=== PATIENT | male | born 1950 | race Caucasian/White ===

== ENCOUNTER → 2016-03-19 | Outpatient (CLI) | payer MEDICARE, MEDICAID ==
[2016-03-19 09:46] LABS: BASO % 0.6 % (0.0-1.0); EOS # 0.2 K/mm3 (0.0-0.50); EOS % 2.9 % (0.0-3.0); LARGE UNSTAINED CELL # 0.2 K/mm3 (0.0-0.4); LARGE UNSTAINED CELL % 2.7 % (0.0-4.0); LYMPH # 1.4 K/mm3 (1.5-4.5); LYMPH % 24.5 % (24.0-44.0); MEAN CORPUSCULAR HGB CONC 33.6 g/dl (32.0-36.5); MEAN CORPUSCULAR VOLUME 89.3 fl (80.0-96.0); MONO # 0.5 K/mm3 (0.0-0.8); MONO % 8.3 % (0.0-5.0); NEUTROPHILS # 3.5 K/mm3 (1.8-7.7); RED CELL DISTRIBUTION WIDTH 12.2 % (11.5-14.5); WHITE BLOOD COUNT 5.8 K/mm3 (4.0-10.0)
[2016-03-19 09:58] LABS: ALBUMIN 3.5 GM/DL (3.2-5.2); ALBUMIN/GLOBULIN RATIO 1.35 (1.00-1.93); ALKALINE PHOSPHATASE 70 U/L (45-117); ALT/SGPT 24 U/L (12-78); ANION GAP 6 MEQ/L (8-16); AST/SGOT 15 U/L (15-37); BILIRUBIN,TOTAL 0.6 MG/DL (0.2-1.0); BLOOD UREA NITROGEN 15 MG/DL (7-18); CALCIUM LEVEL 8.5 MG/DL (8.8-10.2); CARBON DIOXIDE LEVEL 30 MEQ/L (21-32); CHLORIDE LEVEL 108 MEQ/L (98-107); CREATININE FOR GFR 0.76 MG/DL (0.70-1.30); GLOMERULAR FILTRATION RATE > 60.0 (>49); GLUCOSE, FASTING 79 MG/DL (80-110); POTASSIUM SERUM 3.8 MEQ/L (3.5-5.1); SODIUM LEVEL 144 MEQ/L (136-145); TOTAL PROTEIN 6.1 GM/DL (6.4-8.2)
[2016-03-19 09:59] LABS: PLATELET COUNT, AUTOMATED 40 k/mm3 (150-450)
[2016-03-19 10:08] LABS: ERYTHROCYTE SEDIMENTATION RATE 2 mm/hr (0-20)
== END ==
LOC: M WUC 08:08
PROVIDERS: ATTEND Physician Assistant
DX: R63.4 Abnormal weight loss (principal)

== ENCOUNTER → 2016-03-26 | Outpatient (CLI) | payer MEDICARE, MEDICAID ==
[~2016-03-26] MED LIST: GASTROGRAFIN SOLUTION 30ML (Q9963) As Ordered ONE; ISOVUE-370 76% 100ML VIAL (Q9967) As Ordered ONE
--- NOTE | 2016-03-26 16:05 | REP ---
Clinical: Weight loss. Technique: AP and lateral soft tissue neck radiographs. Findings: Visualized nasopharyngeal, oral pharyngeal, and upper tracheal airway appears patent and relatively normal. The prevertebral soft tissues are unremarkable. No obvious mass or mass effect is identified. The osseous structures demonstrate moderate/advanced multilevel degenerative changes to the visualized cervical spine including osteophytosis and disc space narrowing primarily involving the C5-6 level. Impression: Degenerative changes of the visualized cervical spine. Otherwise unremarkable soft tissue neck radiographs. Signed by Kobe Padron MD 03/26/2016 03:56 P
--- NOTE | 2016-03-26 20:07 | REP ---
CT CHEST WITH CONTRAST: 03/26/2016. Clinical history: Weight loss. Comparison: 01/31/2010 CT chest. Chest x-ray 05/03/2015. Technique: The patient received bolus of 100 mL of Isovue 370, scanning through the chest with coronal and sagittal reconstructions. Findings. The lungs are well inflated. There is minor dependent atelectatic changes posteriorly in the lower lung zones. On image 89, there is a semi-solid nodule in the lingula anteriorly in the subpleural region. This is present on the previous study and suggests some scarring. No other nodules, infiltrates, effusion or masses. No calcified pleural plaques, pleural-based masses, pneumothorax, pneumomediastinum. The heart is not enlarged. There is no pericardial thickening or effusion. The aorta is without aneurysm or dissection. The main, right and left pulmonary arteries are without filling defects. There is no pathologic sized mediastinal or hilar adenopathy. AP window lymph nodes 7 mm and 9 mm are noted. Precarinal 7 mm node is seen. None of these are pathologic size by CT criteria. The xiang, axillary and supraclavicular region show no pathologic adenopathy. No visible mass in the supraclavicular region. Bone windows show sternum, manubrium, clavicles, AC joints, glenohumeral joints, scapulae, ribs and the spine without fracture or destructive lesion evident. There are some degenerative changes. In the upper abdomen, there is some colonic interposition in the anterior wall of the abdomen and lower chest and the liver, but no hepatic mass, biliary dilatation or ascites in the upper abdomen. Liver and spleen seen only in part. Small hiatal hernia suggested. No other finding. Impression: 1. There is a semi-solid nodule in the lingular subpleural region left anterior chest wall and this is essentially unchanged dating back to 2009 CT. 2. No other significant lung findings, mediastinal or hilar adenopathy, parenchymal lung mass or infiltrate. 3. Aorta without aneurysm and the central pulmonary arteries without filling defects. 4. Bones intact and no chest wall abnormality suggested. Signed by Brandon Lemus MD 03/26/2016 08:08 P
--- NOTE | 2016-03-26 20:20 | REP ---
CT abdomen and pelvis with contrast: 03/26/2016. Clinical history: Weight loss. Comparison: Noncontrast CT 06/13/2010. Technique: Oral Gastrografin mixture 10 ml in 290 ml of flavored water for two doses per our bowel contrast protocol, with a bolus of 100 ml of Isovue 370. Scanning from the abdomen through the pelvis. Precontrast scanning through the abdomen performed. Coronal and sagittal reconstructions were utilized. Bone windows are also reviewed. Findings: Small hiatal hernia suggested. Stomach has small amounts of retained oral contrast. Liver shows no gross hepatomegaly. There is slight eventration of the right diaphragm. No hepatosplenomegaly, focal hepatic or splenic mass, intrahepatic biliary dilatation or ascites. One tiny low density area in the right hepatic lobe inferiorly with CT attenuation numbers equivocal. It is too small to characterize and could be a small cyst or hemangioma. This is not a significant finding. Gallbladder shows no calcified stone or mass. Pancreas shows no mass, ductal dilatation or adjacent inflammatory change. Parapelvic cysts are seen on the left kidney with no extrarenal pelvis, renal stone or mass. No cortical calcification. No definite cortical cyst. The ureters show normal course to the bladder without dilatation. There is no stone. There is abundant stool in the right and transverse colon into the mid left colon in the abdominal portion of that organ. Small bowel loops are contrast and fluid-filled without abnormal dilatation and no air-fluid levels or other signs of obstruction. Adrenal glands were normal. The aorta is without aneurysm or dissection. Lung windows shows no perforation or free air in the abdomen or pelvis on review of all slices. Bone windows show degenerative disc changes lumbar and lower thoracic spine without compression deformity or destructive lesion. There is some hypertrophic facet change, but no spondylolysis or spondylolisthesis. Visualized ribs intact. CT pelvis. The bony pelvis shows degenerative changes of the hips although mild with small rim osteophytes in the acetabular roof. No evidence of AVN or fracture. The iliac wings intact. SI joints and sacral ala were also intact. Iliac bones and the symphysis pubis were unremarkable. Within the deep pelvis, the ureters are not dilated and show no stone or mass. The bladder is only partially filled, but is without mass, wall thickening or stone. Prostate mildly enlarged. Seminal vesicles symmetric. Distal left colon and sigmoid without sign of colitis, diverticulitis, stricture or mass. There is no ventral or inguinal hernia nor pathologic sized inguinal adenopathy. There are no inflammatory changes about the cecum. Small bowel loops in the deep pelvis were unremarkable. Impression: 1. Solid organs in the upper abdomen, small bowel loops and colon, stomach, gallbladder were all grossly unremarkable without acute finding. 2. Parapelvic cysts right kidney without stone, mass, hydronephrosis or other acute finding. 3. No aortic aneurysm or dissection. The bones are without acute finding. Signed by Brandon Lemus MD 03/27/2016 09:26 A
== END ==
LOC: M RAD 15:34
PROVIDERS: ATTEND Physician Assistant
DX: M50.322 Other cervical disc degeneration at C5-C6 level (principal); N28.1 Cyst of kidney, acquired; R91.1 Solitary pulmonary nodule; R63.4 Abnormal weight loss
CPT/HCPCS: 70360; 71260; 74178; Q9963; Q9967

== ENCOUNTER → 2016-04-12 | Outpatient (CLI) | payer MEDICARE, MEDICAID ==
--- NOTE | 2016-04-15 09:43 | SLEEPCENT ---
DATE OF STUDY: 04/12/2016 ORDERING PROVIDER: Berta Hui NP Nocturnal polysomnography was performed for the retitration of pressure therapy in this patient with severe obstructive sleep apnea syndrome. Initially titrated to a pressure of +9. For testing, the patient was fit with a ResMed Quattro full face mask of extra-small size. 9 cm of water pressure were applied to the circuit, and the lights were extinguished. 7 hours and 48 minutes of data were reviewed. There were 346 minutes of sleep identified. Sleep latency was short at 5.5 minutes. Rapid eye movement (REM) latency was mildly prolonged at 133 minutes. Sleep architecture improved later in the study, but fragmentation persisted throughout. Overall sleep efficiency was 76%. The patient's electrocardiogram (EKG) showed a sinus rhythm with an average heart rate of 72 beats per minute. Electroencephalogram (EEG) showed normal waveforms for awake and sleep. Persistence of respiratory events prompted an increase in continuous positive airway pressure (CPAP) pressure; and despite optimal mask fit and minimal air leak, a bilevel device was necessary. Titration continued to an inspiratory pressure of 24 over an expiratory pressure of 19, with which pressure, respiratory events were reasonably well addressed. This was late in the study; and by that time, progression was difficult to assess. Occasional central events emerged, but best sleep was seen on an inspiratory pressure of 24 over expiratory pressure of 19. There was increased limb activity on this study in comparison to prior test. Limb activity was near continuous early in the study but did improve later in the test. Arousals from limb events occurred 11.3 times per hour. IMPRESSION #1: Severe obstructive sleep apnea syndrome (G47.31, G47.33). RECOMMENDATION: Nightly use of bilevel pressure therapy, inspiratory pressure of 24 over expiratory pressure of 19 was sufficient to significantly reduce the frequency of respiratory events. IMPRESSION #2: Periodic limb movement disorder (G47.61). RECOMMENDATION: Nightly use of bilevel pressure therapy, inspiratory 24 over expiratory of 19 should be sufficient to address the patient's respiratory disruption should sleep problems persist, interventions to reduce the frequency of arousal from limb activity may be necessary.
== END ==
LOC: M SLEEP 19:45
PROVIDERS: ATTEND Nurse Practitioner Adult Health
DX: G47.31 Primary central sleep apnea (principal); G47.33 Obstructive sleep apnea (adult) (pediatric); G47.61 Periodic limb movement disorder

== ENCOUNTER → 2016-09-23 | Outpatient (REF) | payer MEDICARE, MEDICAID ==
[2016-09-23 18:13] LABS: ALBUMIN 3.7 GM/DL (3.2-5.2); ALBUMIN/GLOBULIN RATIO 1.23 (1.00-1.93); ALKALINE PHOSPHATASE 81 U/L (45-117); ALT/SGPT 30 U/L (12-78); ANION GAP 5 MEQ/L (8-16); AST/SGOT 17 U/L (15-37); BILIRUBIN,TOTAL 0.4 MG/DL (0.2-1.0); BLOOD UREA NITROGEN 17 MG/DL (7-18); CALCIUM LEVEL 8.8 MG/DL (8.8-10.2); CARBON DIOXIDE LEVEL 29 MEQ/L (21-32); CHLORIDE LEVEL 104 MEQ/L (98-107); CHOLESTEROL LEVEL 135 MG/DL (<200); CREATININE FOR GFR 0.76 MG/DL (0.70-1.30); GLOMERULAR FILTRATION RATE > 60.0 (>49); GLUCOSE, FASTING 86 MG/DL (80-110); POTASSIUM SERUM 4.3 MEQ/L (3.5-5.1); SODIUM LEVEL 138 MEQ/L (136-145); TOTAL PROTEIN 6.7 GM/DL (6.4-8.2); TRIGLYCERIDES LEVEL 114 MG/DL (<150)
[2016-09-23 18:17] LABS: BASO # 0.1 K/mm3 (0.0-0.2); BASO % 0.7 % (0.0-1.0); EOS # 0.4 K/mm3 (0.0-0.50); EOS % 4.2 % (0.0-3.0); LARGE UNSTAINED CELL # 0.3 K/mm3 (0.0-0.4); LARGE UNSTAINED CELL % 3.4 % (0.0-4.0); LYMPH # 2.1 K/mm3 (1.5-4.5); LYMPH % 23.8 % (24.0-44.0); MEAN CORPUSCULAR HEMOGLOBIN 31.5 pg (27.0-33.0); MONO # 0.8 K/mm3 (0.0-0.8); MONO % 8.6 % (0.0-5.0); NEUTROPHILS # 5.2 K/mm3 (1.8-7.7); NEUTROPHILS % 59.3 % (36.0-66.0); PLATELET COUNT, AUTOMATED 113 k/mm3 (150-450); RED CELL DISTRIBUTION WIDTH 12.9 % (11.5-14.5); WHITE BLOOD COUNT 8.7 K/mm3 (4.0-10.0)
[2016-09-23 20:56] LABS: ERYTHROCYTE SEDIMENTATION RATE 1 mm/hr (0-20)
[2016-09-23 22:36] LABS: REASON FOR REVIEW COMPREHENSIVE REVIEW
[2016-09-24 11:56] LABS: HEP C VIRUS AB SCREEN MEDICARE < 0.0 INDEX (<0.8)
[2016-09-26 00:06] LABS: HLA CLASS 1 ANTIBODY Negative (Negative); IIb/IIIa ANTIBODY Negative (Negative); Ia/IIa ANTIBODY Negative (Negative)
== END ==
LOC: M SFHCPLAZ 14:28
PROVIDERS: ATTEND Family Medicine
DX: F32.9 Major depressive disorder, single episode, unspecified (principal); E78.5 Hyperlipidemia, unspecified; D69.6 Thrombocytopenia, unspecified; N40.1 Benign prostatic hyperplasia with lower urinary tract symptoms; E55.9 Vitamin D deficiency, unspecified; Z12.11 Encounter for screening for malignant neoplasm of colon; G47.33 Obstructive sleep apnea (adult) (pediatric); F41.9 Anxiety disorder, unspecified; F71 Moderate intellectual disabilities; N20.0 Calculus of kidney; Z79.82 Long term (current) use of aspirin; Z79.899 Other long term (current) drug therapy
CPT/HCPCS: 36415; 80053; 80061; 82550; 83970; 85025; 85652; 86022; 86140; G0103; G0463; G0472

== ENCOUNTER → 2016-10-03 | Outpatient (CLI) | payer MEDICARE, MEDICAID ==
--- NOTE | 2016-10-04 06:44 | REP ---
CT ABDOMEN AND PELVIS WITH ORAL AND IV CONTRAST: TECHNIQUE: Axial contrast enhanced images from the lung bases to the pubic symphysis using 100 mL Isovue 370 intravenous contrast material with multiplanar reformations. COMPARISON: 03/26/2016. The visualized lung bases demonstrate chronic fibrotic changes. The liver, gallbladder, spleen, adrenals and pancreas appear unremarkable. No abnormality is seen of the right kidney. Left kidney demonstrates multiple peripelvic cysts. These are unchanged since the prior exam. There is no abdominal aortic aneurysm with mild scattered atherosclerotic calcification. There is no adenopathy. There is no free air or free fluid. There is no bowel wall thickening. There is no pelvic mass. The urinary bladder is mildly distended and grossly unremarkable. There are mild degenerative changes of the spine. IMPRESSION: No change since prior study. Peripelvic cysts of the left kidney. No other significant abnormality identified. Signed by Nicho Shearer MD 10/04/2016 03:18 P
== END ==
LOC: M RAD 15:00
PROVIDERS: ATTEND Family Medicine
DX: D69.6 Thrombocytopenia, unspecified (principal); N28.1 Cyst of kidney, acquired
CPT/HCPCS: 74177; Q9963; Q9967

== ENCOUNTER → 2016-10-30 | Outpatient (CLI) | payer MEDICARE, MEDICAID ==
[2016-10-30 14:19] LABS: MEAN CORPUSCULAR HEMOGLOBIN 31.7 pg (27.0-33.0); MEAN CORPUSCULAR HGB CONC 35.6 g/dl (32.0-36.5); RED CELL DISTRIBUTION WIDTH 12.6 % (11.5-14.5); WHITE BLOOD COUNT 7.3 K/mm3 (4.0-10.0)
[2016-10-30 14:38] LABS: EOSINOPHILS 2 % (0-5)
== END ==
LOC: M WUC 08:38
PROVIDERS: ATTEND Family Medicine
DX: D69.6 Thrombocytopenia, unspecified (principal)

== ENCOUNTER → 2017-01-06 | Outpatient (CLI) | payer MEDICARE, MEDICAID ==
[2017-01-06 07:05] LABS: MEAN CORPUSCULAR HEMOGLOBIN 30.7 pg (27.0-33.0); MEAN CORPUSCULAR HGB CONC 35.1 g/dl (32.0-36.5); MEAN CORPUSCULAR VOLUME 87.3 fl (80.0-96.0); RED CELL DISTRIBUTION WIDTH 12.4 % (11.5-14.5)
[2017-01-06 07:20] LABS: CBCMD ORDERED? YES (YES)
[2017-01-06 07:21] LABS: INR 1.1
[2017-01-06 07:43] LABS: EOSINOPHILS 2 % (0-5)
[2017-01-06 07:44] LABS: ALBUMIN 3.7 GM/DL (3.2-5.2); ALBUMIN/GLOBULIN RATIO 1.28 (1.00-1.93); ALKALINE PHOSPHATASE 64 U/L (45-117); ALT/SGPT 26 U/L (12-78); ANION GAP 9 MEQ/L (8-16); AST/SGOT 12 U/L (15-37); BILIRUBIN,TOTAL 0.6 MG/DL (0.2-1.0); BLOOD UREA NITROGEN 11 MG/DL (7-18); CALCIUM LEVEL 8.9 MG/DL (8.8-10.2); CARBON DIOXIDE LEVEL 27 MEQ/L (21-32); CHLORIDE LEVEL 106 MEQ/L (98-107); CHOLESTEROL LEVEL 184 MG/DL (<200); CREATININE FOR GFR 0.74 MG/DL (0.70-1.30); FREE T4 0.98 NG/DL (0.76-1.46); GLOMERULAR FILTRATION RATE > 60.0 (>49); GLUCOSE, FASTING 78 MG/DL (80-110); SODIUM LEVEL 142 MEQ/L (136-145); TOTAL PROTEIN 6.6 GM/DL (6.4-8.2); TRIGLYCERIDES LEVEL 73 MG/DL (<150)
[2017-01-07 12:51] LABS: THYROID PEROXIDASE ANTIBODY 28.6 U/ML (<60.0)
[2017-01-08 00:08] LABS: H PYLORI SERUM QUANT IgG ABY 5.5 U/mL (0.0-0.8)
== END ==
LOC: M LAB 06:33
PROVIDERS: ATTEND Family Medicine
DX: D69.6 Thrombocytopenia, unspecified (principal); E78.5 Hyperlipidemia, unspecified

== ENCOUNTER → 2017-03-26 | Outpatient (CLI) | payer MEDICARE, MEDICAID ==
[2017-03-26 08:22] LABS: BASO % 0.6 % (0.0-1.0); EOS # 0.2 10^3/uL (0.0-0.50); EOS % 3.2 % (0.0-3.0); HEMATOCRIT 43.6 % (42.0-52.0); HEMOGLOBIN 15.2 g/dl (14.0-18.0); IMMATURE GRANULOCYTE % 0.2 % (0-0); LYMPH # 1.6 10^3/uL (1.5-4.5); MEAN CORPUSCULAR HEMOGLOBIN 30.3 pg (27.0-33.0); MEAN CORPUSCULAR HGB CONC 34.9 g/dl (32.0-36.5); MONO # 0.7 10^3/uL (0.0-0.8); MONO % 11.7 % (0.0-5.0); NEUTROPHILS # 3.7 10^3/uL (1.8-7.7); NEUTROPHILS % 58.3 % (36.0-66.0); PLATELET COUNT, AUTOMATED 284 10^3/uL (150-450); RED BLOOD COUNT 5.01 10^6/uL (4.30-6.10); RED CELL DISTRIBUTION WIDTH 12.6 % (11.5-14.5); WHITE BLOOD COUNT 6.3 10^3/uL (4.0-10.0)
[2017-03-26 08:30] LABS: HEMATOCRIT 43.6 % (42.0-52.0)
[2017-03-26 08:51] LABS: ALBUMIN 3.8 GM/DL (3.2-5.2); ALBUMIN/GLOBULIN RATIO 1.19 (1.00-1.93); ALKALINE PHOSPHATASE 85 U/L (45-117); ALT/SGPT 22 U/L (12-78); ANION GAP 6 MEQ/L (8-16); AST/SGOT 17 U/L (7-37); BILIRUBIN,TOTAL 0.4 MG/DL (0.2-1.0); BLOOD UREA NITROGEN 12 MG/DL (7-18); C REACTIVE PROTEIN QUANTITATIV < 0.30 MG/DL (0.00-0.30); CALCIUM LEVEL 8.5 MG/DL (8.8-10.2); CARBON DIOXIDE LEVEL 30 MEQ/L (21-32); CHLORIDE LEVEL 106 MEQ/L (98-107); CHOLESTEROL LEVEL 173 MG/DL (<200); CHOLESTEROL RISK RATIO 2.836 (<5); CPK CREATINE PHOSPHOKINASE 72 U/L (39-308); CREATININE FOR GFR 0.65 MG/DL (0.70-1.30); GLOMERULAR FILTRATION RATE > 60.0 (>49); GLUCOSE, FASTING 82 MG/DL (80-110); HDL CHOLESTEROL 61 MG/DL (>40); LDL CHOLESTEROL 102.2 MG/DL (<100); NON-HDL-C 112 MG/DL; POTASSIUM SERUM 4.3 MEQ/L (3.5-5.1); SODIUM LEVEL 142 MEQ/L (136-145); TRIGLYCERIDES LEVEL 49 MG/DL (<150)
[2017-03-26 10:36] LABS: TOTAL 25(OH) VITAMIN D 60.3 NG/ML (30.0-100.0)
[2017-03-26 11:58] LABS: PTH INTACT 26.9 PG/ML (14.0-72.0); VITAMIN B12 LEVEL 332 PG/ML (247-911)
[2017-03-27 18:58] LABS: PRETREATED FOLATE FOR RBCFOL 11.1 NG/ML; RBC FOLATE 534.6 NG/ML (280-791)
== END ==
LOC: M LAB 07:32
DX: D69.6 Thrombocytopenia, unspecified (principal)
CPT/HCPCS: 82550

== ENCOUNTER 2017-04-23 17:04 | Inpatient (IN) | payer MEDICARE, MEDICAID ==
[2017-04-23] MEDS: ACETAMINOPHEN 325 MG TAB PO (18:30)
[2017-04-23 19:07] LABS: BASO % 0.1 % (0.0-1.0); HEMATOCRIT 41.3 % (42.0-52.0); HEMOGLOBIN 14.6 g/dl (14.0-18.0); IMMATURE GRANULOCYTE % 2.1 % (0-3.0); LYMPH # 0.8 10^3/uL (1.5-4.5); LYMPH % 2.8 % (24.0-44.0); MEAN CORPUSCULAR HEMOGLOBIN 30.9 pg (27.0-33.0); MEAN CORPUSCULAR HGB CONC 35.4 g/dl (32.0-36.5); MEAN CORPUSCULAR VOLUME 87.5 fl (80.0-96.0); MONO % 9.6 % (0.0-5.0); NEUTROPHILS # 24.6 10^3/uL (1.8-7.7); NEUTROPHILS % 85.4 % (36.0-66.0); PLATELET COUNT, AUTOMATED 235 10^3/uL (150-450); RED BLOOD COUNT 4.72 10^6/uL (4.30-6.10); RED CELL DISTRIBUTION WIDTH 12.9 % (11.5-14.5); WHITE BLOOD COUNT 28.9 10^3/uL (4.0-10.0)
[2017-04-23 19:41] LABS: MONO # 2.8 10^3/uL (0.0-0.8); POSITIVE DIFF POS FLAG
[2017-04-23 19:43] LABS: ANION GAP 11 MEQ/L (8-16); BLOOD UREA NITROGEN 19 MG/DL (7-18); CALCIUM LEVEL 8.8 MG/DL (8.8-10.2); CARBON DIOXIDE LEVEL 24 MEQ/L (21-32); CHLORIDE LEVEL 104 MEQ/L (98-107); CREATININE FOR GFR 0.84 MG/DL (0.70-1.30); GLOMERULAR FILTRATION RATE > 60.0 (>49); GLUCOSE, FASTING 93 MG/DL (70-100); POTASSIUM SERUM 3.6 MEQ/L (3.5-5.1); SODIUM LEVEL 139 MEQ/L (136-145)
[2017-04-23] MEDS: NS 1,000 ML IV (20:00)
[2017-04-23] MEDS ORDERED: ISOVUE-370 76% 100ML VIAL (Q9967) As Ordered (20:11)
[2017-04-23 21:29] LABS: KETONE, URINE AUTO RFX NEGATIVE (NEGATIVE); MUCUS, URINE RFX LARGE (NEGATIVE); RBC, URINE AUTO RFX 16 /HPF (0-3); SQUAM EPITHELIAL CELL UR AURFX 1 /HPF (0-6)
[2017-04-23 21:30] LABS: LEUKOCYTE ESTERASE UR AUTO RFX 3+ (NEGATIVE); NITRITE, URINE AUTO RFX POSITIVE (NEGATIVE); SPECIFIC GRAVITY UR AUTO RFX >1.060 (1.002-1.035); WBC, URINE AUTO RFX 157 /HPF (0-3)
[2017-04-23 21:38] LABS: ALBUMIN 3.7 GM/DL (3.2-5.2); ALBUMIN/GLOBULIN RATIO 1.12 (1.00-1.93); ALKALINE PHOSPHATASE 66 U/L (45-117); ALT/SGPT 20 U/L (12-78); AST/SGOT 11 U/L (7-37); BILIRUBIN,DIRECT 0.3 MG/DL (0.0-0.2); LIPASE 46 U/L (73-393)
[2017-04-23] MEDS: CEFTRIAXONE SOD 1 GM in APPROPRIATE DILUENT 1 EA IV (22:00)
[2017-04-23] MEDS ORDERED: ACETAMINOPHEN TAB 650MG DOSE (2X325MG) PO (22:45)
[2017-04-24] MEDS: NS 1,000 ML IV ×3 (00:39→18:08)
[2017-04-24 07:18] LABS: BASO % 0.1 % (0.0-1.0); HEMATOCRIT 40.3 % (42.0-52.0); HEMOGLOBIN 14.1 g/dl (14.0-18.0); IMMATURE GRANULOCYTE % 2.8 % (0-3.0); LYMPH # 0.7 10^3/uL (1.5-4.5); LYMPH % 2.7 % (24.0-44.0); MEAN CORPUSCULAR HEMOGLOBIN 30.7 pg (27.0-33.0); MEAN CORPUSCULAR VOLUME 87.6 fl (80.0-96.0); MONO % 7.9 % (0.0-5.0); NEUTROPHILS # 23.8 10^3/uL (1.8-7.7); NEUTROPHILS % 86.5 % (36.0-66.0); PLATELET COUNT, AUTOMATED 232 10^3/uL (150-450); RED CELL DISTRIBUTION WIDTH 13.2 % (11.5-14.5); WHITE BLOOD COUNT 27.5 10^3/uL (4.0-10.0)
[2017-04-24 07:56] LABS: MONO # 2.2 10^3/uL (0.0-0.8); POSITIVE DIFF POS FLAG
[2017-04-24] MEDS: TAMSULOSIN 0.4 MG CAP PO (08:10)
[2017-04-24] MEDS: VITAMIN D 1,000 INTERNATIONAL UNITS TABLET PO (08:10)
[2017-04-24] MEDS: busPIRone 10 MG TAB PO ×2 (08:10→20:17)
[2017-04-24] MEDS: SERTRALINE 100 MG TAB PO (08:10)
[2017-04-24] MEDS: ENOXAPARIN 40 MG/0.4 ML SYRINGE (J1650) SC (08:10)
[2017-04-24] MEDS: CEFTRIAXONE SOD 1 GM in APPROPRIATE DILUENT 1 EA IV (08:10)
[2017-04-24] MEDS: SIMVASTATIN 10 MG TAB PO (20:17)
[2017-04-24] MEDS: CYANOCOBALAMIN 500 MCG TAB PO (20:17)
[2017-04-24] MEDS: ASPIRIN 81 MG ENTERIC TAB PO (20:17)
[2017-04-25] MEDS: NS 1,000 ML IV ×2 (04:20→14:42)
[2017-04-25] MEDS: VITAMIN D 1,000 INTERNATIONAL UNITS TABLET PO (08:59)
[2017-04-25] MEDS: busPIRone 10 MG TAB PO ×2 (08:59→20:25)
[2017-04-25] MEDS: TAMSULOSIN 0.4 MG CAP PO (08:59)
[2017-04-25] MEDS: SERTRALINE 100 MG TAB PO (08:59)
[2017-04-25] MEDS: ENOXAPARIN 40 MG/0.4 ML SYRINGE (J1650) SC (09:00)
[2017-04-25] MEDS: CEFTRIAXONE SOD 1 GM in APPROPRIATE DILUENT 1 EA IV (09:00)
[2017-04-25 09:01] LABS: HEMATOCRIT 38.3 % (42.0-52.0); HEMOGLOBIN 13.2 g/dl (14.0-18.0); MEAN CORPUSCULAR HEMOGLOBIN 30.8 pg (27.0-33.0); MEAN CORPUSCULAR HGB CONC 34.5 g/dl (32.0-36.5); MEAN CORPUSCULAR VOLUME 89.3 fl (80.0-96.0); PLATELET COUNT, AUTOMATED 239 10^3/uL (150-450); RED BLOOD COUNT 4.29 10^6/uL (4.30-6.10); RED CELL DISTRIBUTION WIDTH 13.4 % (11.5-14.5); WHITE BLOOD COUNT 17.2 10^3/uL (4.0-10.0)
[2017-04-25 09:32] LABS: ANION GAP 7 MEQ/L (8-16); BLOOD UREA NITROGEN 14 MG/DL (7-18); CALCIUM LEVEL 8.1 MG/DL (8.8-10.2); CARBON DIOXIDE LEVEL 27 MEQ/L (21-32); CHLORIDE LEVEL 108 MEQ/L (98-107); GLOMERULAR FILTRATION RATE > 60.0 (>49); GLUCOSE, FASTING 109 MG/DL (70-100); POTASSIUM SERUM 3.4 MEQ/L (3.5-5.1); SODIUM LEVEL 142 MEQ/L (136-145)
[2017-04-25] MEDS: POTASSIUM CHLORIDE 10 MEQ SR TABLET PO (10:13)
[2017-04-25] MEDS: SIMVASTATIN 10 MG TAB PO (20:25)
[2017-04-25] MEDS: CYANOCOBALAMIN 500 MCG TAB PO (20:25)
[2017-04-25] MEDS: ASPIRIN 81 MG ENTERIC TAB PO (20:26)
[2017-04-26] MEDS: NS 1,000 ML IV ×2 (00:17→08:29)
[2017-04-26 05:45] LABS: HEMATOCRIT 37.1 % (42.0-52.0); HEMOGLOBIN 12.7 g/dl (14.0-18.0); MEAN CORPUSCULAR HEMOGLOBIN 30.3 pg (27.0-33.0); MEAN CORPUSCULAR HGB CONC 34.2 g/dl (32.0-36.5); MEAN CORPUSCULAR VOLUME 88.5 fl (80.0-96.0); PLATELET COUNT, AUTOMATED 256 10^3/uL (150-450); RED BLOOD COUNT 4.19 10^6/uL (4.30-6.10); RED CELL DISTRIBUTION WIDTH 13.3 % (11.5-14.5); WHITE BLOOD COUNT 10.8 10^3/uL (4.0-10.0)
[2017-04-26 05:59] LABS: ANION GAP 6 MEQ/L (8-16); BLOOD UREA NITROGEN 11 MG/DL (7-18); CARBON DIOXIDE LEVEL 26 MEQ/L (21-32); CHLORIDE LEVEL 111 MEQ/L (98-107); CREATININE FOR GFR 0.57 MG/DL (0.70-1.30); GLOMERULAR FILTRATION RATE > 60.0 (>49); GLUCOSE, FASTING 82 MG/DL (70-100); POTASSIUM SERUM 3.4 MEQ/L (3.5-5.1); SODIUM LEVEL 143 MEQ/L (136-145)
[2017-04-26] MEDS: busPIRone 10 MG TAB PO (08:28)
[2017-04-26] MEDS: VITAMIN D 1,000 INTERNATIONAL UNITS TABLET PO (08:28)
[2017-04-26] MEDS: SERTRALINE 100 MG TAB PO (08:28)
[2017-04-26] MEDS: TAMSULOSIN 0.4 MG CAP PO (08:28)
[2017-04-26] MEDS: CEFTRIAXONE SOD 1 GM in APPROPRIATE DILUENT 1 EA IV (08:29)
[2017-04-26] MEDS: ENOXAPARIN 40 MG/0.4 ML SYRINGE (J1650) SC (08:29)
== END 2017-04-26 14:17 | disposition home or self-care (01) | DRG 872 ==
LOC: M MSPAV 04-24 12:27 → M ED 17:04 → M ED INP 22:42
DX: A41.9 Sepsis, unspecified organism (principal); N39.0 Urinary tract infection, site not specified; F70 Mild intellectual disabilities; E78.5 Hyperlipidemia, unspecified; F32.9 Major depressive disorder, single episode, unspecified; B96.20 Unspecified Escherichia coli [E. coli] as the cause of diseases classified elsewhere; F41.9 Anxiety disorder, unspecified; N40.1 Benign prostatic hyperplasia with lower urinary tract symptoms; Z88.2 Allergy status to sulfonamides; Z79.82 Long term (current) use of aspirin; Z79.899 Other long term (current) drug therapy

== ENCOUNTER → 2017-04-29 | Outpatient (REF) | payer MEDICARE, MEDICAID ==
[2017-04-29 18:43] LABS: ALBUMIN 3.1 GM/DL (3.2-5.2); ALBUMIN/GLOBULIN RATIO 0.94 (1.00-1.93); ALKALINE PHOSPHATASE 98 U/L (45-117); ALT/SGPT 43 U/L (12-78); ANION GAP 7 MEQ/L (8-16); AST/SGOT 22 U/L (7-37); BILIRUBIN,TOTAL 0.2 MG/DL (0.2-1.0); BLOOD UREA NITROGEN 14 MG/DL (7-18); CALCIUM LEVEL 8.7 MG/DL (8.8-10.2); CARBON DIOXIDE LEVEL 31 MEQ/L (21-32); CHLORIDE LEVEL 106 MEQ/L (98-107); CREATININE FOR GFR 0.53 MG/DL (0.70-1.30); GLOMERULAR FILTRATION RATE > 60.0 (>49); GLUCOSE, FASTING 68 MG/DL (70-100); POTASSIUM SERUM 4.2 MEQ/L (3.5-5.1); SODIUM LEVEL 144 MEQ/L (136-145); TOTAL PROTEIN 6.4 GM/DL (6.4-8.2)
[2017-04-29 18:54] LABS: HEMATOCRIT 39.7 % (42.0-52.0); HEMOGLOBIN 13.4 g/dl (14.0-18.0); MEAN CORPUSCULAR HEMOGLOBIN 30.1 pg (27.0-33.0); MEAN CORPUSCULAR HGB CONC 33.8 g/dl (32.0-36.5); MEAN CORPUSCULAR VOLUME 89.2 fl (80.0-96.0); PLATELET COUNT, AUTOMATED 378 10^3/uL (150-450); RED BLOOD COUNT 4.45 10^6/uL (4.30-6.10); RED CELL DISTRIBUTION WIDTH 13.4 % (11.5-14.5); WHITE BLOOD COUNT 9.7 10^3/uL (4.0-10.0)
[2017-04-29 18:57] LABS: ADD MANUAL DIFFER YES; DIFF SLIDE NUMBER 266; POSITIVE MORPH POS FLAG
[2017-04-29 21:12] LABS: ATYPICAL LYMPH 2 % (0-5); BANDS 1 % (< 11); EOSINOPHILS 4 % (0-5); LYMPHOCYTES 18 % (16-52); METAMYELOCYTES 1 % (0-0); MONOCYTES 8 % (0-8); MYELOCYTES 1 % (0-0); NEUTROPHILS 65 % (35-75)
[2017-04-29 21:13] LABS: PLATELET ESTIMATE NORMAL (NORMAL)
== END ==
LOC: M SFHCPLAZ 15:22
DX: N30.00 Acute cystitis without hematuria (principal)
CPT/HCPCS: 80053

== ENCOUNTER → 2017-05-14 | Outpatient (REF) | payer MEDICARE ==
[2017-05-14 12:42] LABS: PROSTATIC SPECIFIC AG MONITOR 2.49 NG/ML (< 4.0)
== END ==
LOC: M SFHCPLAZ 10:00
DX: N40.1 Benign prostatic hyperplasia with lower urinary tract symptoms (principal)
CPT/HCPCS: 84153

== ENCOUNTER 2017-06-24 08:37 | Emergency (ER) | payer MEDICARE ==
[2017-06-24 10:02] LABS: BASO % 0.5 % (0.0-1.0); EOS # 0.1 10^3/uL (0.0-0.50); EOS % 1.7 % (0.0-3.0); HEMATOCRIT 37.3 % (42.0-52.0); HEMOGLOBIN 13.5 g/dl (13.5-17.5); IMMATURE GRANULOCYTE % 0.3 % (0-3.0); LYMPH # 1.5 10^3/uL (1.5-4.5); MEAN CORPUSCULAR HEMOGLOBIN 30.6 pg (27.0-33.0); MEAN CORPUSCULAR HGB CONC 36.2 g/dl (32.0-36.5); MEAN CORPUSCULAR VOLUME 84.6 fl (80.0-96.0); MONO # 0.7 10^3/uL (0.0-0.8); MONO % 12.2 % (0.0-5.0); NEUTROPHILS # 3.5 10^3/uL (1.8-7.7); NEUTROPHILS % 60.3 % (36.0-66.0); PLATELET COUNT, AUTOMATED 256 10^3/uL (150-450); RED BLOOD COUNT 4.41 10^6/uL (4.30-6.10); RED CELL DISTRIBUTION WIDTH 12.9 % (11.5-14.5); WHITE BLOOD COUNT 5.8 10^3/uL (4.0-10.0)
[2017-06-24] MEDS: NS 1,000 ML IV (10:02)
[2017-06-24 10:26] LABS: ALBUMIN 3.1 GM/DL (3.2-5.2); ALBUMIN/GLOBULIN RATIO 0.97 (1.00-1.93); ALKALINE PHOSPHATASE 63 U/L (45-117); ALT/SGPT 45 U/L (12-78); ANION GAP 5 MEQ/L (8-16); AST/SGOT 18 U/L (7-37); BILIRUBIN,DIRECT 0.1 MG/DL (0.0-0.2); BILIRUBIN,TOTAL 0.5 MG/DL (0.2-1.0); BLOOD UREA NITROGEN 10 MG/DL (7-18); CALCIUM LEVEL 8.4 MG/DL (8.8-10.2); CARBON DIOXIDE LEVEL 28 MEQ/L (21-32); CHLORIDE LEVEL 113 MEQ/L (98-107); GLOMERULAR FILTRATION RATE > 60.0 (>49); GLUCOSE, FASTING 82 MG/DL (70-100); LIPASE 221 U/L (73-393); POTASSIUM SERUM 3.6 MEQ/L (3.5-5.1); SODIUM LEVEL 146 MEQ/L (136-145); TOTAL PROTEIN 6.3 GM/DL (6.4-8.2)
[2017-06-26 00:21] LABS: PSA TOTAL 1.5 ng/mL (0.0-4.0)
== END 2017-06-24 10:55 | disposition home or self-care (01) ==
LOC: M ED 08:37
DX: N41.0 Acute prostatitis (principal); R10.9 Unspecified abdominal pain; F70 Mild intellectual disabilities; Z87.442 Personal history of urinary calculi; Z79.82 Long term (current) use of aspirin; Z79.899 Other long term (current) drug therapy; Z88.8 Allergy status to other drugs, medicaments and biological substances
CPT/HCPCS: 73030

== ENCOUNTER 2017-07-24 13:08 | Emergency (ER) | payer MEDICARE, MEDICAID ==
[2017-07-24] MEDS: NORCO, ANEXSIA 5/325MG TABLET (HYDROcodone/ACETAMINOPHEN) PO (13:49)
== END 2017-07-24 14:52 | disposition home or self-care (01) ==
LOC: M ED 13:08
DX: S23.41XA Sprain of ribs, initial encounter (principal); S80.211A Abrasion, right knee, initial encounter; S51.001A Unspecified open wound of right elbow, initial encounter; W01.0XXA Fall on same level from slipping, tripping and stumbling without subsequent striking against object, initial encounter; Y92.480 Sidewalk as the place of occurrence of the external cause; E78.5 Hyperlipidemia, unspecified; G47.33 Obstructive sleep apnea (adult) (pediatric); R13.10 Dysphagia, unspecified; F41.9 Anxiety disorder, unspecified; F32.9 Major depressive disorder, single episode, unspecified; F79 Unspecified intellectual disabilities; Z88.8 Allergy status to other drugs, medicaments and biological substances; Z79.899 Other long term (current) drug therapy; Z79.82 Long term (current) use of aspirin
CPT/HCPCS: 71101

== ENCOUNTER → 2017-07-27 | Outpatient (CLI) | payer MEDICARE, MEDICAID ==
[2017-07-27 08:46] LABS: BASO # 0.1 10^3/uL (0.0-0.2); BASO % 0.7 % (0.0-1.0); EOS # 0.2 10^3/uL (0.0-0.50); EOS % 2.9 % (0.0-3.0); HEMOGLOBIN 14.8 g/dl (13.5-17.5); IMMATURE GRANULOCYTE % 0.3 % (0-3.0); LYMPH # 1.5 10^3/uL (1.5-4.5); LYMPH % 20.3 % (24.0-44.0); MEAN CORPUSCULAR HEMOGLOBIN 30.5 pg (27.0-33.0); MEAN CORPUSCULAR HGB CONC 35.2 g/dl (32.0-36.5); MEAN CORPUSCULAR VOLUME 86.4 fl (80.0-96.0); MONO # 0.8 10^3/uL (0.0-0.8); NEUTROPHILS # 4.7 10^3/uL (1.8-7.7); NEUTROPHILS % 64.8 % (36.0-66.0); PLATELET COUNT, AUTOMATED 315 10^3/uL (150-450); RED BLOOD COUNT 4.86 10^6/uL (4.30-6.10); RED CELL DISTRIBUTION WIDTH 12.6 % (11.5-14.5); WHITE BLOOD COUNT 7.2 10^3/uL (4.0-10.0)
[2017-07-27 09:07] LABS: ALBUMIN 3.7 GM/DL (3.2-5.2); ALBUMIN/GLOBULIN RATIO 1.03 (1.00-1.93); ALKALINE PHOSPHATASE 84 U/L (45-117); ALT/SGPT 21 U/L (12-78); ANION GAP 3 MEQ/L (8-16); AST/SGOT 15 U/L (7-37); BILIRUBIN,TOTAL 0.5 MG/DL (0.2-1.0); BLOOD UREA NITROGEN 12 MG/DL (7-18); CARBON DIOXIDE LEVEL 31 MEQ/L (21-32); CHLORIDE LEVEL 106 MEQ/L (98-107); CREATININE FOR GFR 0.64 MG/DL (0.70-1.30); GLOMERULAR FILTRATION RATE > 60.0 (>49); GLUCOSE, FASTING 89 MG/DL (70-100); POTASSIUM SERUM 4.3 MEQ/L (3.5-5.1); PROSTATIC SPECIFIC AG MONITOR 0.95 NG/ML (< 4.0); SODIUM LEVEL 140 MEQ/L (136-145); TOTAL PROTEIN 7.3 GM/DL (6.4-8.2)
[2017-07-27 09:23] LABS: TOTAL 25(OH) VITAMIN D 43.2 NG/ML (30.0-100.0)
[2017-07-27 09:24] LABS: PTH INTACT 27.1 PG/ML (18.5-88.0); VITAMIN B12 LEVEL 681 PG/ML (247-911)
[2017-07-28 11:37] LABS: PRETREATED FOLATE FOR RBCFOL 12.1 NG/ML
== END ==
LOC: M LAB 08:04
DX: D69.6 Thrombocytopenia, unspecified (principal); E55.9 Vitamin D deficiency, unspecified; E53.8 Deficiency of other specified B group vitamins; N40.1 Benign prostatic hyperplasia with lower urinary tract symptoms
CPT/HCPCS: 82607

== ENCOUNTER 2017-08-16 17:04 | Inpatient (IN) | payer MEDICARE, MEDICAID ==
[2017-08-16 18:00] LABS: KETONE, URINE AUTO RFX NEGATIVE (NEGATIVE); LEUKOCYTE ESTERASE UR AUTO RFX NEGATIVE (NEGATIVE); MUCUS, URINE RFX SMALL (NEGATIVE); NITRITE, URINE AUTO RFX NEGATIVE (NEGATIVE); RBC, URINE AUTO RFX 0 /HPF (0-3); SPECIFIC GRAVITY UR AUTO RFX 1.024 (1.002-1.035); SQUAM EPITHELIAL CELL UR AURFX 1 /HPF (0-6); WBC, URINE AUTO RFX 0 /HPF (0-3)
[2017-08-16 18:34] LABS: BASO # 0.1 10^3/uL (0.0-0.2); BASO % 0.4 % (0.0-1.0); EOS # 1.2 10^3/uL (0.0-0.50); HEMOGLOBIN 12.9 g/dl (13.5-17.5); IMMATURE GRANULOCYTE % 0.2 % (0-3.0); LYMPH # 1.4 10^3/uL (1.5-4.5); LYMPH % 12.1 % (24.0-44.0); MEAN CORPUSCULAR HEMOGLOBIN 29.9 pg (27.0-33.0); MEAN CORPUSCULAR HGB CONC 34.9 g/dl (32.0-36.5); MEAN CORPUSCULAR VOLUME 85.8 fl (80.0-96.0); MONO # 1.7 10^3/uL (0.0-0.8); NEUTROPHILS # 7.2 10^3/uL (1.8-7.7); NEUTROPHILS % 62.3 % (36.0-66.0); PLATELET COUNT, AUTOMATED 301 10^3/uL (150-450); RED BLOOD COUNT 4.31 10^6/uL (4.30-6.10); RED CELL DISTRIBUTION WIDTH 12.5 % (11.5-14.5); WHITE BLOOD COUNT 11.6 10^3/uL (4.0-10.0)
[2017-08-16 18:48] LABS: ANION GAP 5 MEQ/L (8-16); BLOOD UREA NITROGEN 18 MG/DL (7-18); CALCIUM LEVEL 8.6 MG/DL (8.8-10.2); CARBON DIOXIDE LEVEL 28 MEQ/L (21-32); CHLORIDE LEVEL 108 MEQ/L (98-107); CREATININE FOR GFR 0.57 MG/DL (0.70-1.30); GLOMERULAR FILTRATION RATE > 60.0 (>49); GLUCOSE, FASTING 101 MG/DL (70-100); POTASSIUM SERUM 3.8 MEQ/L (3.5-5.1); SODIUM LEVEL 141 MEQ/L (136-145)
[2017-08-16 18:51] LABS: LACTIC ACID SEPSIS PROTOCOL 0.8 MMOL/L (0.4-2.0)
[2017-08-16] MEDS ORDERED: ISOVUE-370 76% 100ML VIAL (Q9967) As Ordered (19:09)
[2017-08-16] MEDS: MORPHINE 4 MG/ML 1ML VIAL/SYRINGE (J2270) IV (19:13)
[2017-08-16] MEDS ORDERED: ONDANSETRON 4MG/2ML VIAL (J2405) IV (20:45)
[2017-08-16] MEDS: cefTRIAXone SOD 1 GM in D5W MINI-BAG PLUS 50 ML IV (20:55)
[2017-08-16] MEDS ORDERED: cefTRIAXone SOD 1 GM in D5W MINI-BAG PLUS 50 ML IV (21:45)
[2017-08-16] MEDS ORDERED: AZITHROMYCIN INJ 500 MG, VIAL MATE ADAPTER 1 EACH in D5W 250 ML IV (21:45)
[2017-08-16] MEDS: ACETAMINOPHEN TAB 650MG DOSE (2X325MG) PO (21:47)
[2017-08-16] MEDS: AZITHROMYCIN INJ 500 MG, VIAL MATE ADAPTER 1 EACH in D5W 250 ML IV (21:52)
[2017-08-16 22:32] LABS: LDH LACTATE DEHYDROGENASE 172 U/L (87-241)
[2017-08-16] MEDS: CYANOCOBALAMIN 500 MCG TAB PO (23:22)
[2017-08-16] MEDS: busPIRone 10 MG TAB PO (23:22)
[2017-08-17] MEDS: ACETAMINOPHEN TAB 650MG DOSE (2X325MG) PO ×2 (04:46→10:02)
[2017-08-17 06:13] LABS: HEMATOCRIT 35.9 % (42.0-52.0); HEMOGLOBIN 12.5 g/dl (13.5-17.5); MEAN CORPUSCULAR HEMOGLOBIN 29.8 pg (27.0-33.0); MEAN CORPUSCULAR HGB CONC 34.8 g/dl (32.0-36.5); MEAN CORPUSCULAR VOLUME 85.5 fl (80.0-96.0); PLATELET COUNT, AUTOMATED 281 10^3/uL (150-450); RED CELL DISTRIBUTION WIDTH 12.8 % (11.5-14.5)
[2017-08-17 06:26] LABS: ANION GAP 6 MEQ/L (8-16); BLOOD UREA NITROGEN 11 MG/DL (7-18); CALCIUM LEVEL 8.3 MG/DL (8.8-10.2); CARBON DIOXIDE LEVEL 26 MEQ/L (21-32); CHLORIDE LEVEL 109 MEQ/L (98-107); CREATININE FOR GFR 0.52 MG/DL (0.70-1.30); GLOMERULAR FILTRATION RATE > 60.0 (>49); GLUCOSE, FASTING 119 MG/DL (70-100); POTASSIUM SERUM 3.3 MEQ/L (3.5-5.1); SODIUM LEVEL 141 MEQ/L (136-145)
[2017-08-17 08:43] LABS: INR 1.17; PROTHROMBIN TIME 15.1 SECONDS (12.4-14.5)
[2017-08-17] MEDS ORDERED: ISOVUE-370 76% 100ML VIAL (Q9967) As Ordered (08:46)
[2017-08-17] MEDS: VITAMIN D 1,000 INTERNATIONAL UNITS TABLET PO (09:59)
[2017-08-17] MEDS: DOXYCYCLINE HYCLATE 100 MG in D5W MINI-BAG PLUS 100 ML IV ×2 (09:59→20:05)
[2017-08-17] MEDS: TAMSULOSIN 0.4 MG CAP PO (10:00)
[2017-08-17] MEDS: busPIRone 10 MG TAB PO ×2 (10:00→20:05)
[2017-08-17] MEDS: FINASTERIDE 5 MG TAB PO (10:02)
[2017-08-17] MEDS: SERTRALINE 100 MG TAB PO (10:02)
[2017-08-17] MEDS ORDERED: FLUMAZENIL 0.5 MG/5 ML VIAL As Ordered (10:43)
[2017-08-17] MEDS ORDERED: MIDAZOLAM INJ 2 MG/2 ML VIAL (J2250) As Ordered ×3 (10:44)
[2017-08-17] MEDS ORDERED: LIDOCAINE 1% MDV 20ML VIAL As Ordered (10:45)
[2017-08-17] MEDS: MIDAZOLAM INJ 2 MG/2 ML VIAL (J2250) IV (12:47)
[2017-08-17] MEDS: LIDOCAINE 1% MDV 20ML VIAL SC (12:53)
[2017-08-17] MEDS ORDERED: KETOROLAC 30 MG/ML VIAL (J1885) As Ordered (12:57)
[2017-08-17] MEDS: KETOROLAC 30 MG/ML VIAL (J1885) IV ×2 (12:59→18:40)
[2017-08-17] MEDS ORDERED: LEVALBUTEROL 1.25 MG/0.5 ML CONCENTRATE NEB NEB (13:15)
[2017-08-17] MEDS ORDERED: BISACODYL 10 MG SUPP PR (13:15)
[2017-08-17] MEDS ORDERED: PERCOCET 5MG/325MG TAB PO (13:15)
[2017-08-17 13:43] LABS: LDH LACTATE DEHYDROGENASE 162 U/L (87-241)
[2017-08-17 14:05] LABS: ABG BASE EXCESS 2.1 (-2.0-2.0); ABG HCO3 27.2 MEQ/L (22.0-26.0); ABG O2 SATURATION 97.1 % (95.0-99.0); ABG PARTIAL PRESSURE CO2 44.4 mmHg (35.0-45.0); ABG PARTIAL PRESSURE O2 90.4 mmHg (75.0-100.0); ABG STANDARD HCO3 26.3 MEQ/L (22.0-26.0); ABG TOTAL CO2 28.6 MEQ/L (23.0-31.0); ABG pH (ARTERIAL) 7.405 UNITS (7.350-7.450)
[2017-08-17 14:12] LABS: BF MONONUCLEAR CELL % 40.6 % (0-0); BF POLYMORPHONUCLEAR CELL % 59.4 % (0-0); RBC BODY FLUID 150 10^3/uL (<2); WBC BODY FLUID 7567 /uL (0-10)
[2017-08-17 14:13] LABS: APPEARANCE, BODY FLUID TURBID (CLEAR); BF DIFF IF INDICATED? YES (NO); PLEURAL FL COLOR RED (COLORLESS); SOURCE, BODY FLUID PLEURAL
[2017-08-17 14:32] LABS: PH BODY FLUID 7.634 UNITS (NOT ESTABLISHED); SOURCE, BODY FLUID pH PLEURAL
[2017-08-17 15:02] LABS: AMYLASE, BODY FLUID 16 U/L (NOT ESTABLISHED); CHOLESTEROL, BODY FLUID 70 MG/DL (NOT ESTABLISHED); SOURCE, BODY FLUID ALBUMIN PLEURAL; SOURCE, BODY FLUID AMYLASE PLEURAL; SOURCE, BODY FLUID CHOL PLEURAL; SOURCE, BODY FLUID GLUCOSE PLEURAL; SOURCE, BODY FLUID TOT PROTEIN PLEURAL; SOURCE, BODY FLUID TRIG PLEURAL; TOTAL PROTEIN, BODY FLUID 4.2 G/DL (NOT ESTABLISHED); TRIGLYCERIDE, BODY FLUID 14 MG/DL (NOT ESTABLISHED)
[2017-08-17 15:06] LABS: LDH, BODY FLUID 1074 U/L (NOT ESTABLISHED); SOURCE, BODY FLUID LDH PLEURAL
[2017-08-17] MEDS: LEVALBUTEROL 1.25 MG/0.5 ML CONCENTRATE NEB NEB ×2 (15:55→21:00)
[2017-08-17] MEDS: MOM 30ML SUSPENSION UDC PO (17:06)
[2017-08-17] MEDS ORDERED: SLF 3 ML SYR IV (18:45)
[2017-08-17] MEDS: CYANOCOBALAMIN 500 MCG TAB PO (20:05)
[2017-08-17] MEDS: DOCUSATE SODIUM 100 MG CAP PO (20:05)
[2017-08-17] MEDS ORDERED: ENOXAPARIN 40 MG/0.4 ML SYRINGE (J1650) SC (21:00)
[2017-08-17] MEDS: cefTRIAXone SOD 1 GM in D5W MINI-BAG PLUS 50 ML IV (21:16)
[2017-08-17] MEDS: SLF 3 ML SYR IV (21:18)
[2017-08-17] MEDS ORDERED: AZITHROMYCIN INJ 500 MG, VIAL MATE ADAPTER 1 EACH in D5W 250 ML IV (22:00)
[2017-08-18] MEDS: KETOROLAC 30 MG/ML VIAL (J1885) IV ×4 (00:13→18:14)
[2017-08-18] MEDS: PERCOCET 5MG/325MG TAB PO (01:03)
[2017-08-18] MEDS: LEVALBUTEROL 1.25 MG/0.5 ML CONCENTRATE NEB NEB ×4 (02:43→20:19)
[2017-08-18] MEDS: SLF 3 ML SYR IV ×3 (05:32→21:28)
[2017-08-18 05:42] LABS: ABG BASE EXCESS 0.7 (-2.0-2.0); ABG HCO3 25.3 MEQ/L (22.0-26.0); ABG O2 SATURATION 97.8 % (95.0-99.0); ABG PARTIAL PRESSURE CO2 40.8 mmHg (35.0-45.0); ABG PARTIAL PRESSURE O2 102.2 mmHg (75.0-100.0); ABG STANDARD HCO3 25.1 MEQ/L (22.0-26.0); ABG TOTAL CO2 26.6 MEQ/L (23.0-31.0); ABG pH (ARTERIAL) 7.411 UNITS (7.350-7.450)
[2017-08-18] MEDS: DOXYCYCLINE HYCLATE 100 MG in D5W MINI-BAG PLUS 100 ML IV ×2 (07:00→20:11)
[2017-08-18 07:02] LABS: HEMATOCRIT 36.4 % (42.0-52.0); HEMOGLOBIN 12.7 g/dl (13.5-17.5); MEAN CORPUSCULAR HEMOGLOBIN 30.2 pg (27.0-33.0); MEAN CORPUSCULAR HGB CONC 34.9 g/dl (32.0-36.5); MEAN CORPUSCULAR VOLUME 86.7 fl (80.0-96.0); PLATELET COUNT, AUTOMATED 286 10^3/uL (150-450); RED CELL DISTRIBUTION WIDTH 12.8 % (11.5-14.5); WHITE BLOOD COUNT 12.2 10^3/uL (4.0-10.0)
[2017-08-18 07:17] LABS: ANION GAP 6 MEQ/L (8-16); BLOOD UREA NITROGEN 14 MG/DL (7-18); CALCIUM LEVEL 8.2 MG/DL (8.8-10.2); CARBON DIOXIDE LEVEL 27 MEQ/L (21-32); CHLORIDE LEVEL 111 MEQ/L (98-107); CREATININE FOR GFR 0.52 MG/DL (0.70-1.30); GLOMERULAR FILTRATION RATE > 60.0 (>49); GLUCOSE, FASTING 94 MG/DL (70-100); POTASSIUM SERUM 3.7 MEQ/L (3.5-5.1); SODIUM LEVEL 144 MEQ/L (136-145)
[2017-08-18] MEDS: busPIRone 10 MG TAB PO ×2 (09:02→20:11)
[2017-08-18] MEDS: DOCUSATE SODIUM 100 MG CAP PO ×2 (09:02→20:11)
[2017-08-18] MEDS: MOM 30ML SUSPENSION UDC PO (09:03)
[2017-08-18] MEDS: VITAMIN D 1,000 INTERNATIONAL UNITS TABLET PO (09:03)
[2017-08-18] MEDS: FINASTERIDE 5 MG TAB PO (09:03)
[2017-08-18] MEDS: TAMSULOSIN 0.4 MG CAP PO (09:03)
[2017-08-18] MEDS: SERTRALINE 100 MG TAB PO (09:03)
[2017-08-18] MEDS: CYANOCOBALAMIN 500 MCG TAB PO (20:11)
[2017-08-18] MEDS: cefTRIAXone SOD 1 GM in D5W MINI-BAG PLUS 50 ML IV (21:27)
[2017-08-19] MEDS: KETOROLAC 30 MG/ML VIAL (J1885) IV ×4 (00:36→18:40)
[2017-08-19] MEDS: LEVALBUTEROL 1.25 MG/0.5 ML CONCENTRATE NEB NEB ×4 (00:58→20:00)
[2017-08-19] MEDS: SLF 3 ML SYR IV ×3 (05:20→21:53)
[2017-08-19 05:53] LABS: HEMATOCRIT 37.3 % (42.0-52.0); HEMOGLOBIN 12.6 g/dl (13.5-17.5); MEAN CORPUSCULAR HEMOGLOBIN 29.3 pg (27.0-33.0); MEAN CORPUSCULAR HGB CONC 33.8 g/dl (32.0-36.5); MEAN CORPUSCULAR VOLUME 86.7 fl (80.0-96.0); PLATELET COUNT, AUTOMATED 298 10^3/uL (150-450); RED CELL DISTRIBUTION WIDTH 12.7 % (11.5-14.5); WHITE BLOOD COUNT 11.4 10^3/uL (4.0-10.0)
[2017-08-19 06:12] LABS: ANION GAP 6 MEQ/L (8-16); BLOOD UREA NITROGEN 12 MG/DL (7-18); CALCIUM LEVEL 8.1 MG/DL (8.8-10.2); CARBON DIOXIDE LEVEL 26 MEQ/L (21-32); CHLORIDE LEVEL 109 MEQ/L (98-107); CREATININE FOR GFR 0.52 MG/DL (0.70-1.30); GLOMERULAR FILTRATION RATE > 60.0 (>49); GLUCOSE, FASTING 100 MG/DL (70-100); POTASSIUM SERUM 3.6 MEQ/L (3.5-5.1); SODIUM LEVEL 141 MEQ/L (136-145)
[2017-08-19] MEDS: DOXYCYCLINE HYCLATE 100 MG in D5W MINI-BAG PLUS 100 ML IV (07:00)
[2017-08-19] MEDS: DOCUSATE SODIUM 100 MG CAP PO ×2 (08:59→20:11)
[2017-08-19] MEDS: MOM 30ML SUSPENSION UDC PO (08:59)
[2017-08-19] MEDS: busPIRone 10 MG TAB PO ×2 (09:20→20:11)
[2017-08-19] MEDS: FINASTERIDE 5 MG TAB PO (09:21)
[2017-08-19] MEDS: TAMSULOSIN 0.4 MG CAP PO (09:21)
[2017-08-19] MEDS: VITAMIN D 1,000 INTERNATIONAL UNITS TABLET PO (09:21)
[2017-08-19] MEDS: SERTRALINE 100 MG TAB PO (09:21)
[2017-08-19] MEDS: CYANOCOBALAMIN 500 MCG TAB PO (20:11)
[2017-08-19] MEDS: cefTRIAXone SOD 1 GM in D5W MINI-BAG PLUS 50 ML IV (20:11)
[2017-08-19] MEDS: DOXYCYCLINE HYCLATE 100 MG TAB PO (20:11)
[2017-08-20] MEDS: KETOROLAC 30 MG/ML VIAL (J1885) IV ×2 (01:00→06:17)
[2017-08-20] MEDS: LEVALBUTEROL 1.25 MG/0.5 ML CONCENTRATE NEB NEB ×2 (02:00→07:13)
[2017-08-20] MEDS: SLF 3 ML SYR IV (06:00)
[2017-08-20 06:13] LABS: HEMATOCRIT 36.4 % (42.0-52.0); HEMOGLOBIN 12.7 g/dl (13.5-17.5); MEAN CORPUSCULAR HGB CONC 34.9 g/dl (32.0-36.5); MEAN CORPUSCULAR VOLUME 86.1 fl (80.0-96.0); PLATELET COUNT, AUTOMATED 331 10^3/uL (150-450); RED BLOOD COUNT 4.23 10^6/uL (4.30-6.10); RED CELL DISTRIBUTION WIDTH 12.7 % (11.5-14.5); WHITE BLOOD COUNT 10.2 10^3/uL (4.0-10.0)
[2017-08-20 06:28] LABS: ANION GAP 4 MEQ/L (8-16); BLOOD UREA NITROGEN 10 MG/DL (7-18); CALCIUM LEVEL 8.5 MG/DL (8.8-10.2); CARBON DIOXIDE LEVEL 29 MEQ/L (21-32); CHLORIDE LEVEL 110 MEQ/L (98-107); GLOMERULAR FILTRATION RATE > 60.0 (>49); GLUCOSE, FASTING 90 MG/DL (70-100); POTASSIUM SERUM 3.9 MEQ/L (3.5-5.1); SODIUM LEVEL 143 MEQ/L (136-145)
[2017-08-20] MEDS: busPIRone 10 MG TAB PO (09:11)
[2017-08-20] MEDS: VITAMIN D 1,000 INTERNATIONAL UNITS TABLET PO (09:11)
[2017-08-20] MEDS: FINASTERIDE 5 MG TAB PO (09:11)
[2017-08-20] MEDS: TAMSULOSIN 0.4 MG CAP PO (09:11)
[2017-08-20] MEDS: SERTRALINE 100 MG TAB PO (09:11)
[2017-08-20] MEDS: MOM 30ML SUSPENSION UDC PO (09:12)
[2017-08-20] MEDS: DOXYCYCLINE HYCLATE 100 MG TAB PO (09:12)
[2017-08-20] MEDS: DOCUSATE SODIUM 100 MG CAP PO (09:12)
== END 2017-08-20 12:20 | disposition home or self-care (01) | DRG 186 ==
LOC: M MSPAV 08-19 16:27 → M PCU 08-17 10:50 → M ED 17:04 → M ED INP 20:44 → M MSPAV 22:30
PROC: 0W9930Z Drainage of Right Pleural Cavity with Drainage Device, Percutaneous Approach (ICD-10-PCS; principal; 2017-08-17)
DX: J90 Pleural effusion, not elsewhere classified (principal); J18.9 Pneumonia, unspecified organism; J98.11 Atelectasis; N40.1 Benign prostatic hyperplasia with lower urinary tract symptoms; F41.9 Anxiety disorder, unspecified; F32.9 Major depressive disorder, single episode, unspecified; E55.9 Vitamin D deficiency, unspecified; F79 Unspecified intellectual disabilities; Z79.82 Long term (current) use of aspirin; Z79.899 Other long term (current) drug therapy; Z88.2 Allergy status to sulfonamides; M17.11 Unilateral primary osteoarthritis, right knee; E78.5 Hyperlipidemia, unspecified; R33.9 Retention of urine, unspecified; D64.9 Anemia, unspecified; S22.41XD Multiple fractures of ribs, right side, subsequent encounter for fracture with routine healing; W19.XXXD Unspecified fall, subsequent encounter; Y92.9 Unspecified place or not applicable

== ENCOUNTER 2017-08-22 11:00 | Emergency (ER) | payer MEDICARE, MEDICAID ==
[2017-08-22 11:34] LABS: BASO # 0.1 10^3/uL (0.0-0.2); BASO % 0.7 % (0.0-1.0); EOS # 1.1 10^3/uL (0.0-0.50); EOS % 13.3 % (0.0-3.0); HEMATOCRIT 38.3 % (42.0-52.0); HEMOGLOBIN 13.2 g/dl (13.5-17.5); IMMATURE GRANULOCYTE % 0.4 % (0-3.0); LYMPH # 1.1 10^3/uL (1.5-4.5); LYMPH % 13.3 % (24.0-44.0); MEAN CORPUSCULAR HEMOGLOBIN 29.8 pg (27.0-33.0); MEAN CORPUSCULAR HGB CONC 34.5 g/dl (32.0-36.5); MEAN CORPUSCULAR VOLUME 86.5 fl (80.0-96.0); MONO # 0.9 10^3/uL (0.0-0.8); MONO % 10.6 % (0.0-5.0); NEUTROPHILS # 5.2 10^3/uL (1.8-7.7); NEUTROPHILS % 61.7 % (36.0-66.0); PLATELET COUNT, AUTOMATED 371 10^3/uL (150-450); RED BLOOD COUNT 4.43 10^6/uL (4.30-6.10); RED CELL DISTRIBUTION WIDTH 12.5 % (11.5-14.5); WHITE BLOOD COUNT 8.4 10^3/uL (4.0-10.0)
[2017-08-22 12:01] LABS: ALBUMIN 2.7 GM/DL (3.2-5.2); ALBUMIN/GLOBULIN RATIO 0.66 (1.00-1.93); ALKALINE PHOSPHATASE 77 U/L (45-117); ALT/SGPT 40 U/L (12-78); ANION GAP 5 MEQ/L (8-16); AST/SGOT 25 U/L (7-37); BILIRUBIN,DIRECT < 0.1 MG/DL (0.0-0.2); BILIRUBIN,TOTAL 0.4 MG/DL (0.2-1.0); BLOOD UREA NITROGEN 12 MG/DL (7-18); CALCIUM LEVEL 8.5 MG/DL (8.8-10.2); CARBON DIOXIDE LEVEL 30 MEQ/L (21-32); CHLORIDE LEVEL 105 MEQ/L (98-107); CPK CREATINE PHOSPHOKINASE 61 U/L (39-308); GLOMERULAR FILTRATION RATE > 60.0 (>49); GLUCOSE, FASTING 123 MG/DL (70-100); SODIUM LEVEL 140 MEQ/L (136-145); TOTAL PROTEIN 6.8 GM/DL (6.4-8.2); TROPONIN I < 0.02 NG/ML (< 0.10)
[2017-08-22 12:01] LABS: LACTIC ACID SEPSIS PROTOCOL 0.9 MMOL/L (0.4-2.0)
[2017-08-22 12:02] LABS: CK-MB VALUE MASS 1.6 NG/ML (<3.6); MB/CK RELATIVE INDEX 2.62 (< OR =4); NT-PRO BNP 348 PG/ML (<125)
[2017-08-22 12:39] LABS: INFLUENZA A AMPLIFICATION NEGATIVE (NEGATIVE); INFLUENZA B AMPLIFICATION NEGATIVE (NEGATIVE)
== END 2017-08-22 17:46 | disposition home or self-care (01) ==
LOC: M ED 11:00
DX: R91.8 Other nonspecific abnormal finding of lung field (principal); R33.9 Retention of urine, unspecified; N40.0 Benign prostatic hyperplasia without lower urinary tract symptoms; F32.9 Major depressive disorder, single episode, unspecified
CPT/HCPCS: 71045

== ENCOUNTER → 2017-08-27 | Outpatient (REF) | payer MEDICARE | LOC: M SFHCPLAZ 13:08 | DX: D69.6 Thrombocytopenia, unspecified (principal); E55.9 Vitamin D deficiency, unspecified; E53.8 Deficiency of other specified B group vitamins; N40.1 Benign prostatic hyperplasia with lower urinary tract symptoms; Z53.8 Procedure and treatment not carried out for other reasons ==

== ENCOUNTER → 2017-08-31 | Outpatient (CLI) | payer MEDICARE | LOC: M SMT 10:56 | DX: J90 Pleural effusion, not elsewhere classified (principal) | CPT/HCPCS: 71046 ==

== ENCOUNTER → 2017-10-05 | Outpatient (REF) | payer MEDICARE | LOC: M SMT 17:01 | DX: R33.9 Retention of urine, unspecified (principal) | CPT/HCPCS: 88108 ==

== ENCOUNTER → 2017-10-08 | Outpatient (CLI) | payer MEDICARE | LOC: M WHC 09:06 | DX: N40.2 Nodular prostate without lower urinary tract symptoms (principal); N40.1 Benign prostatic hyperplasia with lower urinary tract symptoms; R33.9 Retention of urine, unspecified | CPT/HCPCS: 76857 ==

== ENCOUNTER → 2017-12-05 | Outpatient (CLI) | payer MEDICARE | LOC: M WUC 13:20 | DX: M25.512 Pain in left shoulder (principal) | CPT/HCPCS: 73030 ==

== ENCOUNTER → 2018-01-02 | Outpatient (CLI) | payer MEDICARE ==
[2018-01-02 13:23] LABS: BASO % 0.7 % (0.0-1.0); EOS # 0.2 10^3/uL (0.0-0.50); EOS % 3.3 % (0.0-3.0); HEMATOCRIT 44.9 % (42.0-52.0); HEMOGLOBIN 15.6 g/dl (13.5-17.5); IMMATURE GRANULOCYTE % 0.2 % (0-3.0); LYMPH # 1.3 10^3/uL (1.5-4.5); MEAN CORPUSCULAR HEMOGLOBIN 29.8 pg (27.0-33.0); MEAN CORPUSCULAR HGB CONC 34.7 g/dl (32.0-36.5); MEAN CORPUSCULAR VOLUME 85.9 fl (80.0-96.0); MONO # 0.7 10^3/uL (0.0-0.8); MONO % 11.5 % (0.0-5.0); NEUTROPHILS # 3.6 10^3/uL (1.8-7.7); NEUTROPHILS % 61.3 % (36.0-66.0); PLATELET COUNT, AUTOMATED 267 10^3/uL (150-450); RED BLOOD COUNT 5.23 10^6/uL (4.30-6.10); RED CELL DISTRIBUTION WIDTH 13.3 % (11.5-14.5); RETICULOCYTE % 1.3 % (0.5-1.5); WHITE BLOOD COUNT 5.8 10^3/uL (4.0-10.0)
[2018-01-02 13:39] LABS: ALBUMIN 3.5 GM/DL (3.2-5.2); ALBUMIN/GLOBULIN RATIO 1.09 (1.00-1.93); ALKALINE PHOSPHATASE 78 U/L (45-117); ALT/SGPT 23 U/L (12-78); ANION GAP 10 MEQ/L (8-16); AST/SGOT 17 U/L (7-37); BILIRUBIN,TOTAL 0.6 MG/DL (0.2-1.0); BLOOD UREA NITROGEN 14 MG/DL (7-18); CALCIUM LEVEL 8.5 MG/DL (8.8-10.2); CARBON DIOXIDE LEVEL 26 MEQ/L (21-32); CHLORIDE LEVEL 105 MEQ/L (98-107); CREATININE FOR GFR 0.68 MG/DL (0.70-1.30); FREE T4 0.92 NG/DL (0.76-1.46); GLOMERULAR FILTRATION RATE > 60.0 (>49); GLUCOSE, FASTING 78 MG/DL (70-100); POTASSIUM SERUM 4.5 MEQ/L (3.5-5.1); SODIUM LEVEL 141 MEQ/L (136-145); TOTAL PROTEIN 6.7 GM/DL (6.4-8.2)
[2018-01-04 10:24] LABS: PTH INTACT 33.3 PG/ML (18.5-88.0); TOTAL 25(OH) VITAMIN D 54.3 NG/ML (30.0-100.0)
== END ==
LOC: M WUC 10:20
DX: D69.6 Thrombocytopenia, unspecified (principal); E55.9 Vitamin D deficiency, unspecified; E53.8 Deficiency of other specified B group vitamins; N40.1 Benign prostatic hyperplasia with lower urinary tract symptoms; Z79.899 Other long term (current) drug therapy
CPT/HCPCS: 84443

== ENCOUNTER → 2018-04-01 | Outpatient (REF) | payer MEDICARE, MEDICAID ==
[~2018-04-01] MED LIST changes: +ASPI1TAB PO; +ASPI81CH32 PO; +ASPI81TAEC PO; +Acetaminophen Tab PO; +BUSP10TA PO; +CEFU50TA PO; +CIPR-249 PO; +DOXY100T PO; +FINA5TAB2 PO; +FLOM0.4C39 PO; -GASTROGRAFIN SOLUTION 30ML (Q9963) As Ordered ONE; -ISOVUE-370 76% 100ML VIAL (Q9967) As Ordered ONE; +MACR100C43 PO; +NORCOTAB PO; +VITA200016 PO; +VITA500T3 PO; +ZOCO10TA PO; +ZOLO100T PO
[2018-04-01 16:05] LABS: BASO # 0.1 10^3/uL (0.0-0.2); BASO % 0.6 % (0.0-1.0); EOS # 0.5 10^3/uL (0.0-0.50); EOS % 5.6 % (0.0-3.0); HEMATOCRIT 42.9 % (42.0-52.0); HEMOGLOBIN 14.7 g/dl (13.5-17.5); LYMPH # 1.2 10^3/uL (1.5-4.5); LYMPH % 15.2 % (24.0-44.0); MEAN CORPUSCULAR HEMOGLOBIN 30.1 pg (27.0-33.0); MEAN CORPUSCULAR HGB CONC 34.3 g/dl (32.0-36.5); MEAN CORPUSCULAR VOLUME 87.7 fl (80.0-96.0); MONO # 1.3 10^3/uL (0.0-0.8); MONO % 15.3 % (0.0-5.0); NEUTROPHILS # 5.1 10^3/uL (1.8-7.7); NEUTROPHILS % 62.9 % (36.0-66.0); PLATELET COUNT, AUTOMATED 275 10^3/uL (150-450); RED BLOOD COUNT 4.89 10^6/uL (4.30-6.10); WHITE BLOOD COUNT 8.2 10^3/uL (4.0-10.0)
[2018-04-01 16:27] LABS: ALBUMIN 3.5 GM/DL (3.2-5.2); ALT/SGPT 26 U/L (12-78); BILIRUBIN,TOTAL 0.3 MG/DL (0.2-1.0); BLOOD UREA NITROGEN 13 MG/DL (7-18); CALCIUM LEVEL 8.6 MG/DL (8.8-10.2); CARBON DIOXIDE LEVEL 26 MEQ/L (21-32); CHLORIDE LEVEL 107 MEQ/L (98-107); CREATININE FOR GFR 0.68 MG/DL (0.70-1.30); GLOMERULAR FILTRATION RATE > 60.0 (>49); GLUCOSE, FASTING 91 MG/DL (70-100); POTASSIUM SERUM 3.9 MEQ/L (3.5-5.1); SODIUM LEVEL 139 MEQ/L (136-145); TOTAL PROTEIN 6.5 GM/DL (6.4-8.2)
== END ==
LOC: M SFHCPLAZ 14:33
PROVIDERS: ATTEND Physician Assistant Medical
DX: J06.9 Acute upper respiratory infection, unspecified (principal)
CPT/HCPCS: 36415; 80053; 85025; G0463

== ENCOUNTER 2018-05-01 23:44 | Emergency (ER) | payer MEDICARE, MEDICAID ==
[~2018-05-01] VITALS: Ht 177.8 cm; Wt 75.9 kg
[2018-05-02] MEDS ORDERED: NAPR-50 PO (04:20)
[2018-05-02] MEDS ORDERED: NAPROXEN 250 MG TAB PO ONE (04:30)
[2018-05-02 04:36] VITALS: BP 132/70
--- NOTE | 2018-05-02 12:28 | REP ---
LEFT KNEE, COMPLETE: 05/04/2016. CLINICAL HISTORY: Trauma, pain and swelling. FINDINGS: [place] view could not be performed. Four views show small spurs tibial spines in medial greater than lateral joint margin. There are spurs in patellar margins as well. No gross patellar subluxation on the AP view. There is no narrowing of the medial or lateral compartments. I do not see any definite joint effusion. There is no visible or displaced fracture, avulsion, loose body, or osteochondral defect. IMPRESSION: 1. 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 2. No narrowing medial or lateral compartments on this non weightbearing study. Electronically Signed by Brandon Lemus MD 05/02/2018 06:55 P
== END 2018-05-02 04:37 | disposition home or self-care (01) ==
LOC: M ED 23:44
DX: M25.562 Pain in left knee (principal); R10.9 Unspecified abdominal pain; Z79.899 Other long term (current) drug therapy; Z79.82 Long term (current) use of aspirin; Z88.8 Allergy status to other drugs, medicaments and biological substances

== ENCOUNTER → 2018-06-18 | Outpatient (CLI) | payer MEDICARE, MEDICAID ==
[~2018-06-18] MED LIST changes: -ASPI1TAB PO; -ASPI81CH32 PO; +ASPI81CH33 PO; +ASPI81TA26 PO; +HYDR-3715 PO; +NAPR-837 PO; -NORCOTAB PO
--- NOTE | 2018-06-18 10:46 | REP ---
CERVICAL SPINE, SEVEN VIEWS: HISTORY: Left side numbness. The cervical spine is visualized from C1 to the C6-7 level in the lateral radiographs. There is no acute fracture or subluxation. The C5-6 intervertebral disc is decreased in height consistent with disc degeneration. Osteophytes are present on C5 and 6. There is narrowing of the C5 neural foramina secondary to uncinate process hypertrophy. IMPRESSION:Degenerative change as described above. Electronically Signed by Jensen Garrido MD 06/18/2018 10:48 A
--- NOTE | 2018-06-18 11:01 | REP ---
LUMBAR SPINE, FIVE VIEWS: HISTORY: Left side numbness. There is no acute fracture or subluxation. The lumbar intervertebral discs are decreased in height. Vacuum phenomenon is present at the L4-5 level. These findings are consistent with disc degeneration. Osteophytes are present throughout the lumbar spine. There is narrowing of the L5-S1 facet joints. IMPRESSION: Degenerative change as described above. Electronically Signed by Jensen Garrido MD 06/18/2018 11:07 A
== END ==
LOC: M SMT 09:49
PROVIDERS: ATTEND Physician Assistant Medical
DX: M51.36 Other intervertebral disc degeneration, lumbar region (principal); M25.78 Osteophyte, vertebrae; M50.322 Other cervical disc degeneration at C5-C6 level; R20.0 Anesthesia of skin
CPT/HCPCS: 72052; 72110; G0463

== ENCOUNTER 2018-08-03 08:12 | Emergency (ER) | payer MEDICARE, MEDICAID ==
[~2018-08-03] VITALS: Ht 177.8 cm; Wt 79.5 kg
[2018-08-03] MEDS ORDERED: OXYB5TAB PO (08:26)
[2018-08-03] MEDS ORDERED: MURI6.5D OT (08:26)
[2018-08-03] MEDS ORDERED: SIMV10TA2 PO (08:26)
[2018-08-03] MEDS ORDERED: IBUP200C25 PO (08:26)
--- NOTE | 2018-08-03 09:25 | REP ---
RIGHT KNEE, FIVE VIEWS: Five views of the right knee performed. No acute fracture or dislocation is seen. There is mild medial joint space narrowing. There is severe patellofemoral compartment narrowing with subchondral sclerosis. Small rounded calcific density at the margin of the lateral patella facet may represent an old avulsion fracture or calcific body. There is superior patellar spurring. IMPRESSION: Degenerative changes without fracture or dislocation. Electronically Signed by Nicho Shearer MD 08/04/2018 09:01 A
--- NOTE | 2018-08-03 09:26 | REP ---
PELVIS AND RIGHT HIP: AP view of the pelvis is performed as well as AP and frog-leg views of the right hip. There is no acute fracture, dislocation or intrinsic bone disease. IMPRESSION: No fracture or dislocation. Electronically Signed by Nicho Shearer MD 08/04/2018 09:02 A
[2018-08-03] MEDS ORDERED: ACETAMINOPHEN TAB 650MG DOSE (2X325MG) PO ONE (09:30)
[2018-08-03 09:32] LABS: BASO % 0.1 % (0.0-1.0); HEMATOCRIT 43.2 % (42.0-52.0); HEMOGLOBIN 14.9 g/dl (13.5-17.5); LYMPH # 0.7 10^3/uL (1.5-4.5); LYMPH % 7.4 % (24.0-44.0); MEAN CORPUSCULAR HEMOGLOBIN 30.3 pg (27.0-33.0); MEAN CORPUSCULAR HGB CONC 34.5 g/dl (32.0-36.5); MEAN CORPUSCULAR VOLUME 87.8 fl (80.0-96.0); MONO % 10.3 % (0.0-5.0); NEUTROPHILS # 8.1 10^3/uL (1.8-7.7); NEUTROPHILS % 81.9 % (36.0-66.0); PLATELET COUNT, AUTOMATED 251 10^3/uL (150-450); RED BLOOD COUNT 4.92 10^6/uL (4.30-6.10); WHITE BLOOD COUNT 9.9 10^3/uL (4.0-10.0)
[2018-08-03 09:42] LABS: INR 1.09; PROTHROMBIN TIME 14.2 SECONDS (12.1-14.4)
[2018-08-03 09:43] LABS: PARTIAL THROMBOPLASTIN TIME 28.7 SECONDS (25.4-37.6)
[2018-08-03 09:57] LABS: ERYTHROCYTE SEDIMENTATION RATE 8 mm/hr (0-20)
[2018-08-03 10:01] LABS: BLOOD UREA NITROGEN 14 MG/DL (7-18); C REACTIVE PROTEIN QUANTITATIV 1.48 MG/DL (0.00-0.30); CALCIUM LEVEL 8.9 MG/DL (8.8-10.2); CARBON DIOXIDE LEVEL 25 MEQ/L (21-32); CHLORIDE LEVEL 105 MEQ/L (98-107); CREATININE FOR GFR 0.76 MG/DL (0.70-1.30); GLOMERULAR FILTRATION RATE > 60.0 (>49); GLUCOSE, FASTING 117 MG/DL (70-100); POTASSIUM SERUM 4.1 MEQ/L (3.5-5.1); SODIUM LEVEL 139 MEQ/L (136-145); URIC ACID 3.1 MG/DL (3.5-7.2)
[2018-08-03 11:15] VITALS: BP 107/59
--- NOTE | 2018-08-03 21:11 | REP ---
Right lower extremity Duplex Doppler venous ultrasound: Real time compression and duplex Doppler interrogation of the right lower extremity deep venous system is performed. The right common femoral, superficial femoral and popliteal veins are fully compressible with transducer pressure and demonstrate normal spontaneous and phasic flow, without evidence of deep venous thrombosis. Impression: No evidence of deep venous thrombosis of the right lower extremity femoral popliteal venous system. A popliteal cyst measures 5.9 x 1.6 x 3.9 cm. Electronically Signed by Nicho Shearer MD 08/03/2018 09:16 A
== END 2018-08-03 11:23 | disposition home or self-care (01) ==
LOC: M ED 08:12 → EDBD 08:12 → M ED 11:23
DX: M71.21 Synovial cyst of popliteal space [Baker], right knee (principal); F41.9 Anxiety disorder, unspecified; F32.9 Major depressive disorder, single episode, unspecified; R73.01 Impaired fasting glucose; Z79.82 Long term (current) use of aspirin; Z79.899 Other long term (current) drug therapy; Z87.442 Personal history of urinary calculi

== ENCOUNTER → 2018-08-14 | Outpatient (CLI) | payer MEDICARE, MEDICAID ==
[~2018-08-14] MED LIST changes: +IBUP200C25 PO; +MURI6.5D OT; +OXYB5TAB PO; +SIMV10TA2 PO
[2018-08-14 09:34] LABS: BASO % 0.5 % (0.0-1.0); EOS # 0.3 10^3/uL (0.0-0.50); EOS % 3.5 % (0.0-3.0); LYMPH # 1.8 10^3/uL (1.5-4.5); LYMPH % 21.9 % (24.0-44.0); MEAN CORPUSCULAR HEMOGLOBIN 30.4 pg (27.0-33.0); MEAN CORPUSCULAR HGB CONC 34.1 g/dl (32.0-36.5); MEAN CORPUSCULAR VOLUME 89.2 fl (80.0-96.0); NEUTROPHILS % 61.7 % (36.0-66.0); PLATELET COUNT, AUTOMATED 305 10^3/uL (150-450); RED BLOOD COUNT 4.93 10^6/uL (4.30-6.10); WHITE BLOOD COUNT 8.1 10^3/uL (4.0-10.0)
[2018-08-14 09:59] LABS: ERYTHROCYTE SEDIMENTATION RATE 6 mm/hr (0-20)
[2018-08-14 10:12] LABS: C REACTIVE PROTEIN QUANTITATIV < 0.30 MG/DL (0.00-0.30); RHEUMATOID FACTOR QUANT < 10.0 IU/ML (<15.0)
== END ==
LOC: M LAB 08:35
PROVIDERS: ATTEND Physician Assistant
DX: M17.11 Unilateral primary osteoarthritis, right knee (principal)

== ENCOUNTER → 2018-08-14 | Outpatient (CLI) | payer MEDICARE, MEDICAID ==
[~2018-08-14] MED LIST changes: +CYAN500T8 PO; -VITA500T3 PO
[2018-08-14 09:37] LABS: BASO # 0.1 10^3/uL (0.0-0.2); BASO % 0.6 % (0.0-1.0); EOS # 0.3 10^3/uL (0.0-0.50); EOS % 3.1 % (0.0-3.0); HEMOGLOBIN 15.1 g/dl (13.5-17.5); LYMPH # 1.8 10^3/uL (1.5-4.5); MEAN CORPUSCULAR HEMOGLOBIN 30.5 pg (27.0-33.0); MEAN CORPUSCULAR HGB CONC 34.3 g/dl (32.0-36.5); MEAN CORPUSCULAR VOLUME 88.9 fl (80.0-96.0); NEUTROPHILS # 4.9 10^3/uL (1.8-7.7); NEUTROPHILS % 60.9 % (36.0-66.0); PLATELET COUNT, AUTOMATED 311 10^3/uL (150-450); RED BLOOD COUNT 4.95 10^6/uL (4.30-6.10)
[2018-08-14 10:06] LABS: ALBUMIN 3.6 GM/DL (3.2-5.2); ALT/SGPT 33 U/L (12-78); BILIRUBIN,TOTAL 0.5 MG/DL (0.2-1.0); BLOOD UREA NITROGEN 15 MG/DL (7-18); CALCIUM LEVEL 9.3 MG/DL (8.8-10.2); CARBON DIOXIDE LEVEL 29 MEQ/L (21-32); CHLORIDE LEVEL 103 MEQ/L (98-107); CHOLESTEROL LEVEL 141 MG/DL (<200); FREE T4 0.87 NG/DL (0.76-1.46); GLOMERULAR FILTRATION RATE > 60.0 (>49); GLUCOSE, FASTING 82 MG/DL (70-100); HDL CHOLESTEROL 60 MG/DL (>40); LDL CHOLESTEROL 69 MG/DL (<100); NON-HDL-C 81 MG/DL; POTASSIUM SERUM 4.3 MEQ/L (3.5-5.1); SODIUM LEVEL 140 MEQ/L (136-145); TOTAL PROTEIN 7.1 GM/DL (6.4-8.2); TRIGLYCERIDES LEVEL 58 MG/DL (<150)
[2018-08-16 10:12] LABS: VITAMIN B12 LEVEL 1050 PG/ML (247-911)
== END ==
LOC: M LAB 08:31
PROVIDERS: ATTEND Family Medicine
DX: E53.8 Deficiency of other specified B group vitamins (principal); E78.5 Hyperlipidemia, unspecified; Z12.5 Encounter for screening for malignant neoplasm of prostate; M17.11 Unilateral primary osteoarthritis, right knee
CPT/HCPCS: 36415; 80053; 80061; 82607; 84439; 84443; 84550; 85025; 85652; 86140; 86431; G0103

== ENCOUNTER → 2018-10-20 | Outpatient (CLI) | payer MEDICARE, MEDICAID ==
[~2018-10-20] MED LIST changes: -OXYB5TAB PO; +OXYB5TAB2 PO
--- NOTE | 2018-10-25 10:58 | SLEEPCENT ---
DATE OF STUDY: 10/20/2018 ORDERED BY: Dr. Ernst Nocturnal polysomnography was performed in an effort to retitrate pressure therapy in this patient with a history of very severe obstructive sleep apnea syndrome with persistent symptoms despite use of bilevel pressure therapy. For testing a ResMed Quattro Mir[place] full face mask of small size was used and initial bilevel pressure of 24/19 was applied to the circuit and the lights were extinguished. 6 hours and 23 minutes of data were reviewed. There were 307.5 minutes of sleep identified. Sleep latency was normal at 7 minutes. Rapid eye movement (REM) sleep was delayed at 104 minutes. Sleep architecture was quite fragmented, some improvement was seen late in the study. Overall sleep efficiency was only 81.1% and there was variable REM time. The patient's electrocardiogram showed a sinus rhythm with an average heart rate of 64 beats per minute. Electroencephalogram (EEG) showed coarsening in background and some alpha intrusion and otherwise normal waveforms for awake and sleep stages. Persistence of respiratory events prompted increases in pressure therapy. Emergence of central apneas prompted the addition of a backup rate. No pressure was identified which would completely eliminate respiratory events; however, the best sleep and maintenance of best oxygen saturation was seen on a bilevel pressure of 26/21 with a backup rate of 10 to address central apneas. Persistent limb activity was seen. Many of these events were however secondary to respiratory events and the limb movement arousal index was only 7.4. IMPRESSION: Severe complex obstructive sleep apnea syndrome (G47.31, G47.33). RECOMMENDATION: Nightly use of bilevel pressure therapy, inspiratory pressure of 26 over expiratory pressure of 21, with a backup rate 10 to address central apneas.
== END ==
LOC: M SLEEP 19:33
PROVIDERS: ATTEND Internal Medicine Pulmonary Disease
DX: G47.31 Primary central sleep apnea (principal); G47.33 Obstructive sleep apnea (adult) (pediatric)

== ENCOUNTER → 2018-11-17 | Outpatient (CLI) | payer MEDICARE, MEDICAID ==
[~2018-11-17] MED LIST changes: +OXYB-54 PO; -OXYB5TAB2 PO; -SIMV10TA2 PO; +SIMV10TA21 PO
--- NOTE | 2018-11-17 17:01 | REP ---
Clinical: Left shoulder pain. Technique: Internal rotation, external rotation, and Y view of the left shoulder. Findings: The acromioclavicular joint is intact and without fracture or dislocation. There is significantly decreased sub acromial space measuring 2.5 mm. The humeral head appears intact and normal. There is subtle fraying to the glenoid rim. No periarticular calcifications or loose bodies. The surrounding soft tissues are normal. Impression: Near complete loss of the subacromial space may be related to patient's symptoms. Electronically Signed by Kobe Padron MD 11/17/2018 04:53 P
--- NOTE | 2018-11-17 17:02 | REP ---
Clinical: Cervical pain. Technique: AP, lateral, flexion/extension, swimmer's, bilateral oblique and open mouth views of the cervical spine. Findings: Moderate focal degenerative disc osteophyte complex at C5-6 includes endplate sclerosis, marginal spurring and disc space narrowing. The remainder of the examination demonstrates generalized age-related changes. Neural foramen appear patent. Spinous processes are intact. Open mouth view demonstrates normal C1-C2 articulation and odontoid process. Impression: Moderate focal degenerative disc osteophyte complex at C5-6. Electronically Signed by Kobe Padron MD 11/17/2018 04:54 P
== END ==
LOC: M RAD 16:17
PROVIDERS: ATTEND Nurse Practitioner Family
DX: M25.512 Pain in left shoulder (principal); M25.78 Osteophyte, vertebrae; M50.322 Other cervical disc degeneration at C5-C6 level

== ENCOUNTER 2019-01-02 20:14 | Emergency (ER) | payer MEDICARE, MEDICAID ==
[~2019-01-02] VITALS: Ht 170.2 cm; Wt 77.1 kg
[~2019-01-02 20:14] MED LIST changes: -OXYB-54 PO; +OXYB5TAB2 PO; +SIMV10TA2 PO; -SIMV10TA21 PO
[2019-01-02 22:20] VITALS: BP 127/77
[2019-01-02] MEDS ORDERED: ACETAMINOPHEN 500 MG TAB PO ONE (22:30)
--- NOTE | 2019-01-03 09:38 | REP ---
RIGHT ELBOW, FOUR VIEWS: There is no evidence of an acute fracture, dislocation or intrinsic bone disease. IMPRESSION: No fracture or dislocation. Electronically Signed by Nicho Shearer MD 01/04/2019 05:26 P
--- NOTE | 2019-01-03 09:41 | REP ---
RIGHT SHOULDER, THREE VIEW: Three views of the right shoulder performed. There is a slightly displaced fracture of the distal clavicle, with mild superior displacement of the distal fragment. Acromioclavicular joint is well aligned. No other fracture or dislocation is seen. The humeral head is high-riding with severally decreased subacromial space compatible with supraspinatus tear. There is narrowing, subchondral sclerosis and spurring of the glenohumeral joint. IMPRESSION: Slightly displaced fracture distal clavicle. High-riding humerus compatible with supraspinatus tear. Electronically Signed by Nicho Shearer MD 01/04/2019 05:26 P
--- NOTE | 2019-01-03 09:43 | REP ---
RIGHT KNEE, SIX VIEWS: Six views of the right knee are performed. There is no acute fracture or dislocation. There is mild medial joint space narrowing with subchondral sclerosis. There is mild spurring of the tibial spines. There is mild to moderate diffuse patellar spurring. There is severe lateral patellofemoral joint space narrowing with subchondral sclerosis. IMPRESSION: Degenerative changes without evidence of acute fracture or dislocation. Electronically Signed by Nicho Shearer MD 01/04/2019 05:26 P
== END 2019-01-02 22:50 | disposition home or self-care (01) ==
LOC: M ED 20:14
DX: S42.031A Displaced fracture of lateral end of right clavicle, initial encounter for closed fracture (principal); S80.211A Abrasion, right knee, initial encounter; W01.0XXA Fall on same level from slipping, tripping and stumbling without subsequent striking against object, initial encounter; Y92.410 Unspecified street and highway as the place of occurrence of the external cause; Y93.01 Activity, walking, marching and hiking; Y99.8 Other external cause status; M25.521 Pain in right elbow; M25.711 Osteophyte, right shoulder; M25.761 Osteophyte, right knee; Z79.82 Long term (current) use of aspirin; Z79.899 Other long term (current) drug therapy

== ENCOUNTER → 2019-03-15 | Outpatient (CLI) | payer MEDICARE, MEDICAID ==
[~2019-03-15] MED LIST changes: -OXYB5TAB2 PO; +OXYB5TAB3 PO; -SIMV10TA2 PO; +SIMV10TA21 PO
[2019-03-15 07:11] LABS: BASO # 0.1 10^3/uL (0.0-0.2); BASO % 0.7 % (0.0-1.0); EOS # 0.2 10^3/uL (0.0-0.5); EOS % 3.1 % (0.0-3.0); HEMATOCRIT 44.6 % (42.0-52.0); HEMOGLOBIN 14.9 g/dl (13.5-17.5); LYMPH # 1.8 10^3/uL (1.5-5.0); LYMPH % 23.8 % (24.0-44.0); MEAN CORPUSCULAR HEMOGLOBIN 29.9 pg (27.0-33.0); MEAN CORPUSCULAR HGB CONC 33.4 g/dl (32.0-36.5); MEAN CORPUSCULAR VOLUME 89.4 fl (80.0-96.0); MONO # 0.9 10^3/uL (0.0-0.8); NEUTROPHILS # 4.4 10^3/uL (1.5-8.5); NEUTROPHILS % 60.1 % (36.0-66.0); PLATELET COUNT, AUTOMATED 265 10^3/uL (150-450); RED BLOOD COUNT 4.99 10^6/uL (4.30-6.10); WHITE BLOOD COUNT 7.4 10^3/uL (4.0-10.0)
[2019-03-15 07:43] LABS: ALBUMIN 3.5 GM/DL (3.2-5.2); ALT/SGPT 24 U/L (12-78); BILIRUBIN,TOTAL 0.7 MG/DL (0.2-1.0); BLOOD UREA NITROGEN 11 MG/DL (7-18); CALCIUM LEVEL 8.8 MG/DL (8.8-10.2); CARBON DIOXIDE LEVEL 26 MEQ/L (21-32); CHLORIDE LEVEL 107 MEQ/L (98-107); CHOLESTEROL LEVEL 153 MG/DL (<200); CHOLESTEROL RISK RATIO 2.684 (<5); CREATININE FOR GFR 0.73 MG/DL (0.70-1.30); FREE T4 0.92 NG/DL (0.76-1.46); GLOMERULAR FILTRATION RATE > 60.0 (>49); GLUCOSE, FASTING 85 MG/DL (70-100); HDL CHOLESTEROL 57 MG/DL (>40); LDL CHOLESTEROL 83 MG/DL (<100); NON-HDL-C 96 MG/DL; POTASSIUM SERUM 3.9 MEQ/L (3.5-5.1); SODIUM LEVEL 141 MEQ/L (136-145); TOTAL PROTEIN 6.9 GM/DL (6.4-8.2); TRIGLYCERIDES LEVEL 64 MG/DL (<150)
[2019-03-15 08:17] LABS: HEMOGLOBIN A1c 5.4 %
[2019-03-15 10:22] LABS: TOTAL 25(OH) VITAMIN D 54.5 NG/ML (30.0-100.0)
[2019-03-15 10:23] LABS: PTH INTACT 35.7 PG/ML (18.5-88.0)
== END ==
LOC: M LAB 06:28
PROVIDERS: ATTEND Nurse Practitioner Family
DX: D69.6 Thrombocytopenia, unspecified (principal); Z79.899 Other long term (current) drug therapy; Z79.82 Long term (current) use of aspirin
CPT/HCPCS: 36415; 80053; 80061; 82306; 83036; 83970; 84439; 84443; 85025; G0103

== ENCOUNTER → 2019-06-18 | Outpatient (CLI) | payer MEDICARE, MEDICAID ==
[~2019-06-18] MED LIST changes: +KETO10TAB PO; +OXYB-54 PO; -OXYB5TAB3 PO
--- NOTE | 2019-06-19 07:19 | REP ---
LEFT KNEE, FOUR VIEWS: Four views of the left knee performed. No acute fracture or dislocation is seen. There is mild diffuse joint space narrowing and subchondral sclerosis in both the medial and lateral joint compartments. There is a more moderate degree of narrowing at the patellofemoral joint. Mild to moderate joint effusion is present. IMPRESSION: Diffuse degenerative changes most significantly at the patellofemoral joint. Mild to moderate joint effusion. Electronically Signed by Nicho Shearer MD 06/19/2019 10:56 A
== END ==
LOC: M WUC 16:43
PROVIDERS: ATTEND Physician Assistant
DX: M25.462 Effusion, left knee (principal); M71.22 Synovial cyst of popliteal space [Baker], left knee

== ENCOUNTER 2019-06-19 16:01 | Emergency (ER) | payer MEDICARE, MEDICAID ==
[~2019-06-19] VITALS: Ht 175.3 cm; Wt 73.6 kg
[~2019-06-19 16:01] MED LIST changes: -KETO10TAB PO
[2019-06-19] MEDS ORDERED: KETOROLAC 30 MG/ML VIAL (J1885) IV ONE (16:45)
[2019-06-19] MEDS ORDERED: NS 1,000 ML IV ONE (16:45)
[2019-06-19 17:12] LABS: BASO % 0.2 % (0.0-1.0); EOS % 0.4 % (0.0-3.0); HEMATOCRIT 41.4 % (42.0-52.0); HEMOGLOBIN 14.5 g/dl (13.5-17.5); LYMPH % 8.9 % (24.0-44.0); MEAN CORPUSCULAR HEMOGLOBIN 30.7 pg (27.0-33.0); MEAN CORPUSCULAR VOLUME 87.7 fl (80.0-96.0); MONO # 1.6 10^3/uL (0.0-0.8); MONO % 13.8 % (0.0-5.0); NEUTROPHILS # 8.7 10^3/uL (1.5-8.5); NEUTROPHILS % 76.4 % (36.0-66.0); PLATELET COUNT, AUTOMATED 247 10^3/uL (150-450); RED BLOOD COUNT 4.72 10^6/uL (4.30-6.10); WHITE BLOOD COUNT 11.3 10^3/uL (4.0-10.0)
--- NOTE | 2019-06-19 17:32 | REPVR ---
PROCEDURE INFORMATION: Exam: US Duplex Lower Extremity Veins Exam date and time: 06/19/2019 4:55 PM Age: 68 years old Clinical indication: Pain; Leg, lower; Bilateral; Additional info: R/O dvt TECHNIQUE: Imaging protocol: Real-time duplex ultrasound of the Lower Extremities with 2-D kohli scale, color Doppler flow and spectral waveform analysis with image documentation. Complete exam focused on the bilateral lower extremity veins. COMPARISON: US Duplex, Ext,LOWER veins,unilat 08/03/2018 9:05 AM FINDINGS: Right deep veins: Unremarkable. The common femoral, femoral, proximal profunda femoral and popliteal veins are patent without thrombus. Normal Doppler waveforms. Normal compressibility and/or augmentation response. Right superficial veins: Saphenofemoral junction is patent without thrombus. Left deep veins: Unremarkable. The common femoral, femoral, proximal profunda femoral and popliteal veins are patent without thrombus. Normal Doppler waveforms. Normal compressibility and/or augmentation response. Left superficial veins: Saphenofemoral junction is patent without thrombus. Soft tissues: Mullins's cysts are seen bilaterally, measuring 6.6 x 1.1 x 2.8 cm on the right and 6.7 x 1.5 x 3.7 cm on the left. IMPRESSION: 1. No deep vein thrombosis demonstrated. 2. Mullins's cyst bilaterally. Electronically signed by: Zeny Harding On 06/19/2019 17:32:10 PM
[2019-06-19 17:34] LABS: ALBUMIN 3.5 GM/DL (3.2-5.2); BILIRUBIN,DIRECT 0.3 MG/DL (0.0-0.2); BILIRUBIN,TOTAL 0.8 MG/DL (0.2-1.0); TOTAL PROTEIN 6.6 GM/DL (6.4-8.2)
[2019-06-19] MEDS ORDERED: KETO10TAB PO (17:58)
[2019-06-19] MEDS ORDERED: KETOROLAC TROMETHAMINE 10 MG TAB PO ONE ×2 (18:15→18:30)
[2019-06-19 18:40] VITALS: BP 118/62
== END 2019-06-19 18:55 | disposition home or self-care (01) ==
LOC: M ED 16:01 → EDBD 16:01 → M ED 18:55
DX: M71.21 Synovial cyst of popliteal space [Baker], right knee (principal); M71.22 Synovial cyst of popliteal space [Baker], left knee; R63.8 Other symptoms and signs concerning food and fluid intake; F79 Unspecified intellectual disabilities; Z79.899 Other long term (current) drug therapy; Z79.82 Long term (current) use of aspirin; M25.462 Effusion, left knee
CPT/HCPCS: 73564; 80047; 80076; 85025; 85379; 93970; 96361; 96374; 99284; J1885

== ENCOUNTER 2019-08-20 01:27 | Emergency (ER) | payer MEDICARE, MEDICAID ==
[~2019-08-20] VITALS: Ht 170.2 cm; Wt 79.5 kg
[~2019-08-20 01:27] MED LIST changes: +CYAN500T14 PO; -CYAN500T8 PO; +KETO10TAB PO
--- NOTE | 2019-08-20 02:28 | REPVR ---
PROCEDURE INFORMATION: Exam: CT Head Without Contrast Exam date and time: 08/20/2019 1:47 AM Age: 68 years old Clinical indication: Injury or trauma; Fall; Initial encounter; Concussion / head injury; Consciousness not specified; Additional info: [facility] TECHNIQUE: Imaging protocol: Computed tomography of the head without contrast. Radiation optimization: All CT scans at this facility use at least one of these dose optimization techniques: automated exposure control; mA and/or kV adjustment per patient size (includes targeted exams where dose is matched to clinical indication); or iterative reconstruction. COMPARISON: No relevant prior studies available. FINDINGS: Brain: Diffuse moderate cerebral age related volume loss. Moderate patchy low attenuation in the white matter compatible with moderate chronic small vessel ischemic disease. No midline shift, mass, fluid collection, or evidence of hemorrhage. Ventricles: Ventricular enlargement proportional to volume loss. Bones/joints: Probable nasal bone fracture. Sinuses: Paranasal sinus moderate opacification. Mastoid air cells: Visualized mastoid air cells are well aerated. Soft tissues: Unremarkable. IMPRESSION: Moderate involutional changes, no acute intracranial abnormality. Electronically signed by: Johnathan Talley On 08/20/2019 02:27:53 AM
--- NOTE | 2019-08-20 02:31 | REPVR ---
PROCEDURE INFORMATION: Exam: CT Maxillofacial Without Contrast Exam date and time: 08/20/2019 1:47 AM Age: 68 years old Clinical indication: Injury or trauma; Fall; Initial encounter; Concussion /head injury; Loss of consciousness not known; Additional info: [place] TECHNIQUE: Imaging protocol: Computed tomography images of the face without contrast. Radiation optimization: All CT scans at this facility use at least one of these dose optimization techniques: automated exposure control; mA and/or kV adjustment per patient size (includes targeted exams where dose is matched to clinical indication); or iterative reconstruction. COMPARISON: No relevant prior studies available. FINDINGS: Limitations: Motion artifact does moderately limit the sensitivity of this examination. Orbits: Orbits are normal. Globes are unremarkable. Bones/joints: Nasal bone fractures. Right anterior and posterior and inferior maxillary sinus wall fractures. Possible tiny bilateral lamina papyracea fractures. Sinuses: Moderate maxillary sinus mucosal opacification. Soft tissues: Unremarkable. IMPRESSION: 1. Nasal bone fractures. 2. Right anterior and posterior and inferior maxillary sinus wall fractures. 3. Limited by motion. Electronically signed by: Johnathan Talley On 08/20/2019 02:31:48 AM
[2019-08-20] MEDS ORDERED: AUGM500T34 PO (02:40)
[2019-08-20] MEDS ORDERED: AUGMENTIN 875 MG TAB PO ONE (02:45)
[2019-08-20 02:54] VITALS: BP 141/87
== END 2019-08-20 02:55 | disposition home or self-care (01) ==
LOC: M ED 01:27
DX: S02.2XXA Fracture of nasal bones, initial encounter for closed fracture (principal); S02.401A Maxillary fracture, unspecified side, initial encounter for closed fracture; W06.XXXA Fall from bed, initial encounter; Y92.9 Unspecified place or not applicable; Y93.89 Activity, other specified; Y99.9 Unspecified external cause status; F81.9 Developmental disorder of scholastic skills, unspecified; N40.1 Benign prostatic hyperplasia with lower urinary tract symptoms; M19.90 Unspecified osteoarthritis, unspecified site; Z87.442 Personal history of urinary calculi; Z79.82 Long term (current) use of aspirin; Z79.899 Other long term (current) drug therapy

== ENCOUNTER → 2019-09-08 | Outpatient (CLI) | payer MEDICARE, MEDICAID ==
[~2019-09-08] MED LIST changes: +AUGM500T34 PO; -CYAN500T14 PO; +CYAN500T8 PO
--- NOTE | 2019-09-08 11:41 | REP ---
MRI lumbar spine: 09/08/2019. Indication: Low back pain. Technique: Multiplanar short and long TR sequences of the lumbar spine were performed without IV Gadolinium. Comparison: CT evaluation dated 08/16/2018. Findings: There is a grade 1 anterolisthesis of L2 on L3 as well as minimal retrolisthesis of L4 and L5. Disc dessication and disc space narrowing are present throughout. Minimal chronic anterior compression deformities are present at L1, L2, L3 and L5. There is no evidence of an acute fracture. No significant retropulsion of fracture fragments into the spinal canal is present. L1/L2: Diffuse disc and spur complex and bilateral facet arthropathy are present with moderate to severe narrowing of the lateral recesses. Moderate bilateral neural foraminal narrowing is present. L2/L3: Diffuse disc uncovering/bulge and bilateral facet arthropathy as well as ligamental laxity are present with severe left and moderate to severe right lateral recess narrowing. Moderate bilateral neural foraminal narrowing is present. L3/L4: Diffuse disc and spur complex and bilateral facet arthropathy and mild ligamental laxity are present with moderate bilateral recess and neural foraminal narrowing. L4/L5: Diffuse disc and spur complex and bilateral facet arthropathy are present with moderate to severe right greater than left recess narrowing. Moderate bilateral neural foraminal narrowing is present. L5/S1: Diffuse disc bulge and bilateral facet arthropathy are present with severe left and moderate right recess narrowing. Bilateral moderate neural foraminal narrowing is present. Impression: Significant multilevel degenerative sequelae of the lumbar spine most pronounced at L2/L3. Electronically Signed by Steven Molina DO 09/08/2019 11:33 A
== END ==
LOC: M PLARAD 08:32
PROVIDERS: ATTEND Nurse Practitioner Family
DX: M51.26 Other intervertebral disc displacement, lumbar region (principal); M51.27 Other intervertebral disc displacement, lumbosacral region; M25.78 Osteophyte, vertebrae; M47.26 Other spondylosis with radiculopathy, lumbar region

== ENCOUNTER → 2019-09-13 | Outpatient (REF) | payer MEDICARE, MEDICAID ==
[2019-09-13 18:08] LABS: BASO # 0.1 10^3/uL (0.0-0.2); BASO % 0.8 % (0.0-1.0); EOS # 0.4 10^3/uL (0.0-0.5); EOS % 5.4 % (0.0-3.0); HEMATOCRIT 41.4 % (42.0-52.0); HEMOGLOBIN 13.6 g/dl (13.5-17.5); LYMPH # 1.9 10^3/uL (1.5-5.0); LYMPH % 23.6 % (24.0-44.0); MEAN CORPUSCULAR HEMOGLOBIN 29.6 pg (27.0-33.0); MEAN CORPUSCULAR HGB CONC 32.9 g/dl (32.0-36.5); MEAN CORPUSCULAR VOLUME 90.2 fl (80.0-96.0); MONO # 1.1 10^3/uL (0.0-0.8); MONO % 13.6 % (0.0-5.0); NEUTROPHILS # 4.4 10^3/uL (1.5-8.5); NEUTROPHILS % 56.5 % (36.0-66.0); PLATELET COUNT, AUTOMATED 267 10^3/uL (150-450); RED BLOOD COUNT 4.59 10^6/uL (4.30-6.10); WHITE BLOOD COUNT 7.8 10^3/uL (4.0-10.0)
[2019-09-13 18:14] LABS: ALBUMIN 3.5 GM/DL (3.2-5.2); ALT/SGPT 27 U/L (12-78); BILIRUBIN,TOTAL 0.3 MG/DL (0.2-1.0); BLOOD UREA NITROGEN 13 MG/DL (7-18); CALCIUM LEVEL 9.5 MG/DL (8.8-10.2); CARBON DIOXIDE LEVEL 29 MEQ/L (21-32); CHLORIDE LEVEL 107 MEQ/L (98-107); CREATININE FOR GFR 0.62 MG/DL (0.70-1.30); GLOMERULAR FILTRATION RATE > 60.0 (>49); GLUCOSE, FASTING 90 MG/DL (70-100); POTASSIUM SERUM 4.1 MEQ/L (3.5-5.1); SODIUM LEVEL 139 MEQ/L (136-145); TOTAL PROTEIN 6.8 GM/DL (6.4-8.2)
[2019-09-13 18:25] LABS: HEMOGLOBIN A1c 5.5 %
== END ==
LOC: M SFHCPLAZ 15:03
PROVIDERS: ATTEND Family Medicine
DX: D69.6 Thrombocytopenia, unspecified (principal); E55.9 Vitamin D deficiency, unspecified; E78.5 Hyperlipidemia, unspecified; Z79.899 Other long term (current) drug therapy
CPT/HCPCS: 36415; 80053; 83036; 83525; 85025; 85046; G0463

== ENCOUNTER 2019-09-15 00:04 | Emergency (ER) | payer MEDICARE, MEDICAID ==
[~2019-09-15] VITALS: Ht 177.8 cm; Wt 75.4 kg
[2019-09-15 02:11] VITALS: BP 124/68
--- NOTE | 2019-09-15 07:51 | REP ---
Clinical: Trauma. Fall. Technique: AP, lateral, bilateral oblique views of the left wrist. Findings: Osteopenia and arthritic changes are noted including joe carpal subchondral cystic changes along with subchondral cystic changes of the distal radius and ulna. Overlying soft tissue swelling and small amounts of chondrocalcinosis are also identified. No definite acute fracture or dislocation. Impression: Swelling and underlying degenerative changes. No obvious acute fracture dislocation. If the patient remains symptomatic consider reevaluation in 3-5 days. Electronically Signed by Kobe Padron MD 09/15/2019 07:43 A
== END 2019-09-15 02:16 | disposition home or self-care (01) ==
LOC: M ED 00:04
DX: S63.502A Unspecified sprain of left wrist, initial encounter (principal); S00.81XA Abrasion of other part of head, initial encounter; W18.39XA Other fall on same level, initial encounter; Y92.018 Other place in single-family (private) house as the place of occurrence of the external cause; N40.0 Benign prostatic hyperplasia without lower urinary tract symptoms; Z79.899 Other long term (current) drug therapy; Z79.82 Long term (current) use of aspirin; F17.210 Nicotine dependence, cigarettes, uncomplicated

== ENCOUNTER → 2020-03-23 | Outpatient (CLI) | payer MEDICARE, MEDICAID ==
[~2020-03-23] MED LIST changes: +CYAN500T14 PO; -CYAN500T8 PO
[2020-03-23 10:09] LABS: BASO % 0.4 % (0.0-1.0); EOS # 0.2 10^3/uL (0.0-0.5); EOS % 3.2 % (0.0-3.0); HEMATOCRIT 45.3 % (42.0-52.0); HEMOGLOBIN 15.4 g/dl (13.5-17.5); LYMPH # 1.4 10^3/uL (1.5-5.0); LYMPH % 20.7 % (24.0-44.0); MEAN CORPUSCULAR VOLUME 88.1 fl (80.0-96.0); MONO # 0.9 10^3/uL (0.0-0.8); MONO % 13.5 % (0.0-5.0); NEUTROPHILS # 4.3 10^3/uL (1.5-8.5); NEUTROPHILS % 61.9 % (36.0-66.0); PLATELET COUNT, AUTOMATED 244 10^3/uL (150-450); RED BLOOD COUNT 5.14 10^6/uL (4.30-6.10); WHITE BLOOD COUNT 6.9 10^3/uL (4.0-10.0)
[2020-03-23 10:51] LABS: ALBUMIN 3.8 GM/DL (3.2-5.2); ALT/SGPT 24 U/L (12-78); BILIRUBIN,TOTAL 0.7 MG/DL (0.2-1.0); BLOOD UREA NITROGEN 15 MG/DL (7-18); CALCIUM LEVEL 8.8 MG/DL (8.8-10.2); CARBON DIOXIDE LEVEL 27 MEQ/L (21-32); CHLORIDE LEVEL 108 MEQ/L (98-107); CHOLESTEROL LEVEL 151 MG/DL (<200); CHOLESTEROL RISK RATIO 2.435 (<5); CREATININE FOR GFR 0.88 MG/DL (0.70-1.30); GLOMERULAR FILTRATION RATE > 60.0 (>42); GLUCOSE, FASTING 81 MG/DL (70-100); HDL CHOLESTEROL 62 MG/DL (>40); LDL CHOLESTEROL 78 MG/DL (<100); NON-HDL-C 89 MG/DL; POTASSIUM SERUM 4.2 MEQ/L (3.5-5.1); SODIUM LEVEL 141 MEQ/L (136-145); TOTAL PROTEIN 6.8 GM/DL (6.4-8.2); TRIGLYCERIDES LEVEL 56 MG/DL (<150)
[2020-03-23 11:31] LABS: PTH INTACT 33.9 PG/ML (18.5-88.0); TOTAL 25(OH) VITAMIN D 49.5 NG/ML (30.0-100.0)
== END ==
LOC: M WUC 08:22
PROVIDERS: ATTEND Family Medicine
DX: E78.5 Hyperlipidemia, unspecified (principal); E55.9 Vitamin D deficiency, unspecified; D69.6 Thrombocytopenia, unspecified; E53.8 Deficiency of other specified B group vitamins; Z12.5 Encounter for screening for malignant neoplasm of prostate; Z79.899 Other long term (current) drug therapy
CPT/HCPCS: 36415; 80053; 80061; 82306; 83970; 85025; G0103

== ENCOUNTER → 2020-05-08 | Outpatient (CLI) | payer MEDICARE, MEDICAID ==
[~2020-05-08] MED LIST changes: +ASPI-569 PO; -ASPI81TAEC PO
--- NOTE | 2020-05-08 18:15 | REPPI ---
INDICATION: FALL. COMPARISON: Comparison study June 18, 2018.. TECHNIQUE: 6 views. FINDINGS: Lumbar vertebral body heights are preserved. Alignment is normal. There is mild anterior wedging of the T11 vertebral body which is un changed from the 2019 prior study. Degenerative disc disease is seen throughout the lumbar spine, most pronounced at L4-5 where there is disc space narrowing and anterior osteophyte formation. There is similar change at L3-4 and this is somewhat more pronounced than on the prior study at the 3 4 level. Pedicles and posterior elements are intact. There is facet hypertrophy bilaterally at L5-S1. Sacrum and SI joints are intact. Psoas margins are symmetric. No acute fracture or collapse is seen. IMPRESSION: Degenerative spondylosis changes. Old mild anterior wedging at T11. No acute fracture or collapse seen. <Electronically signed by Devendra Ramos > 05/08/20 [id number]
== END ==
LOC: M PLAIMG 15:36
PROVIDERS: ATTEND Physician Assistant
DX: M51.36 Other intervertebral disc degeneration, lumbar region (principal); W19.XXXA Unspecified fall, initial encounter

== ENCOUNTER 2020-06-14 10:41 | Emergency (ER) | payer MEDICARE, MEDICAID ==
[~2020-06-14] VITALS: Ht 177.8 cm; Wt 73.4 kg
[2020-06-14] MEDS ORDERED: ONDANSETRON 4MG/2ML VIAL IV ONE (12:15)
[2020-06-14] MEDS ORDERED: MORPHINE 2 MG/ML 1ML VIAL (J2270) IV ONE (12:15)
[2020-06-14 12:35] LABS: BASO % 0.2 % (0.0-1.0); EOS # 0.1 10^3/uL (0.0-0.5); EOS % 0.6 % (0.0-3.0); HEMATOCRIT 45.8 % (42.0-52.0); HEMOGLOBIN 15.4 g/dl (13.5-17.5); LYMPH # 1.3 10^3/uL (1.5-5.0); LYMPH % 13.4 % (24.0-44.0); MEAN CORPUSCULAR HEMOGLOBIN 30.1 pg (27.0-33.0); MEAN CORPUSCULAR HGB CONC 33.6 g/dl (32.0-36.5); MEAN CORPUSCULAR VOLUME 89.6 fl (80.0-96.0); MONO # 1.2 10^3/uL (0.0-0.8); MONO % 11.7 % (2.0-8.0); NEUTROPHILS # 7.4 10^3/uL (1.5-8.5); NEUTROPHILS % 73.7 % (36.0-66.0); PLATELET COUNT, AUTOMATED 242 10^3/uL (150-450); RED BLOOD COUNT 5.11 10^6/uL (4.30-6.10)
[2020-06-14] MEDS ORDERED: ISOVUE-370 76% 100ML VIAL As Ordered ONE (12:42)
[2020-06-14 12:47] LABS: INR 1.07; PROTHROMBIN TIME 14.2 SECONDS (12.5-14.3)
[2020-06-14 12:48] LABS: PARTIAL THROMBOPLASTIN TIME 28.9 SECONDS (24.2-38.5)
[2020-06-14 13:07] LABS: ALBUMIN 3.8 GM/DL (3.2-5.2); ALT/SGPT 24 U/L (12-78); BILIRUBIN,DIRECT 0.2 MG/DL (0.0-0.2); BILIRUBIN,TOTAL 0.5 MG/DL (0.2-1.0); TOTAL PROTEIN 7.3 GM/DL (6.4-8.2)
--- NOTE | 2020-06-14 13:35 | REP ---
INDICATION: fall, severe L rib pain, decreased breath sounds. COMPARISON: CT 08/17/2017, PA chest and ribs 06/14/2020. TECHNIQUE: Bolus 100 mL Isovue 370 scanning through the chest with coronal and sagittal reconstructions. FINDINGS: Elevation of the right diaphragm since the previous study with adjacent compressive atelectatic change in the right lower lobe with consolidative appearance. Eventration of the right diaphragm noted. No definite pleural effusion. No consolidative atelectasis or infiltrate in the right lung. Some subpleural fibrotic changes are suggested, right greater than left. No effusion or pneumothorax. No nodule or mass. Previous CT with prominent right effusion shows it cleared completely. Heart size upper limits normal. There is left atrial enlargement. No pericardial thickening or effusion. There is no aortic aneurysm or dissection. The main, right and left pulmonary arteries are without filling defects within the mediastinum. No pathologic sized mediastinal, hilar, axillary or supraclavicular adenopathy. Symmetric thyroid lobes. Tracheal airway grossly intact. Visualized esophagus unremarkable. No definite hiatal hernia. The upper abdomen, visualized portions of liver and spleen are without acute finding. Gallbladder without calcified stone or mass. That portion of the pancreas included is unremarkable. Parapelvic cyst upper pole left kidney is increased in size. Nonobstructing calculus left upper pole calyx noted. An extrarenal pelvis in the right side. Adrenal glands unremarkable. Spleen intact. Gas-filled and mildly prominent transverse and splenic flexure portions of colon noted underneath the left diaphragm. No free air. There is grade 2 anterior superior endplate compression deformity of the T10 and superior endplate depression grade 1-2 T11. The T10 finding may be acute as there is a small paraspinal hematoma at the T9-10 disc space. The other vertebral bodies show maintained height and no compression deformity or avulsion. Posterior elements throughout the thoracic spine were unremarkable. There is no involvement of the neural arch with these compression fractures. There are old healed and remodeled fractures posteriorly at the right 2nd through 4th. Ununited fracture at the posterolateral right 8th rib and an old healed and remodeled fracture posterolaterally on the 7th right rib. No evidence of any acute fractures on the left or right ribs. Visualized scapulae, medial clavicles, humeral heads and the sternum/manubrium were all unremarkable. IMPRESSION: 1. Interval elevation left diaphragm since the [address] and consolidative atelectasis or infiltrate left lower lobe adjacent to it. No effusion. Some subpleural fibrosis in the right lower lobe some underlying COPD but no other infiltrates. 2. T10 vertebral body shows anterior superior grade 2 compression deformity that I suspect is acute with paraspinal hematoma at the T9-10 disc level. There is a grade 1-2 superior endplate depression of T11 vertebral body without paraspinal hematoma or other findings suggesting that it is acute. No involvement of the neural arch and no other vertebral compression fractures. No spinal canal stenosis. 3. Old healed and remodeled rib fractures on the right and one united rib fracture appearing old at posterolateral right 8th rib. <Electronically signed by Brandon Lemus > 06/14/20 [id number]
--- NOTE | 2020-06-14 13:48 | REP ---
INDICATION: large amount of air seen at , concern for Bowel obx. COMPARISON: Abdomen/pelvis CT dated 08/16/2017. TECHNIQUE: Abdomen/pelvis CT with IV contrast, without bowel contrast. FINDINGS: Discussion with the emergency room physician indicates that a large amount of air was seen at the urgent care center and there is concern for bowel obstruction. The visualized lower lung stahl reveal a nondisplaced fracture posterolaterally of the left 9th rib. This may be acute. There are old fractures of the right 8th and 7th ribs. There is atelectasis in the left lung lower lobe. The hepatic parenchyma, gallbladder, pancreas and spleen are normal size and unremarkable. The adrenals are unremarkable. There are multiple peripelvic renal cysts in the left kidney, unchanged. There is a Bosniak type 1 left renal cyst measuring 1.9 cm at the lower pole posterolaterally. The right kidney is unremarkable. The abdominal aorta is unremarkable. There is no periaortic adenopathy or mass. The entire colon is gas filled and moderately distended to the proximal sigmoid colon. There is no colonic wall thickening or mass in the proximal sigmoid colon by CT. There is no small bowel distention. The bowel gas pattern is nonspecific. No definite obstruction is identified at this time. There is a 2.4 cm fat containing umbilical hernia. The peritoneal defect measures 1.6 cm. Pelvis: The pelvic bowel loops are unremarkable. There is no adenopathy or ascites. The bladder is unremarkable. There is degenerative disc disease throughout the lumbar spine. There is grade 2 compression deformity of the T10 vertebral body and grade 1 compression deformity of the T11 vertebral body. IMPRESSION: A no evidence of bowel obstruction by CT. The colon is moderately distended to the proximal sigmoid colon in a nonspecific pattern. There is no small bowel distention. There is a nondisplaced fracture of the left 9th rib posterolaterally, possibly acute. Correlate with point tenderness. Old rib fractures of the right 7th and 8th ribs. Atelectasis in the lower lobe of the left lung. Left renal parapelvic cysts and Bosniak type 1 renal cortical cyst. 2.4 cm fat containing umbilical hernia. Compression deformities of the T10 and T11 vertebral bodies as described. Degenerative disc disease throughout the lumbar spine. <Electronically signed by Nicho Garcia > 06/14/20 0041
[2020-06-14 16:20] LABS: RSV AMPLIFICATION NEGATIVE (NEGATIVE)
[2020-06-14 16:37] VITALS: BP 131/76
[2020-06-14 17:09] LABS: CK-MB VALUE MASS 1.8 NG/ML (<3.6); CPK CREATINE PHOSPHOKINASE 67 U/L (39-308); MB/CK RELATIVE INDEX 2.69 (< OR =4); TROPONIN I < 0.02 NG/ML (< 0.10)
== END 2020-06-14 16:42 | disposition short-term general hospital (02) ==
LOC: M ED 10:41
DX: S22.070A Wedge compression fracture of T9-T10 vertebra, initial encounter for closed fracture (principal); S22.32XA Fracture of one rib, left side, initial encounter for closed fracture; S20.222A Contusion of left back wall of thorax, initial encounter; X58.XXXA Exposure to other specified factors, initial encounter; Y92.89 Other specified places as the place of occurrence of the external cause; Y93.89 Activity, other specified; Y99.8 Other external cause status; W19.XXXA Unspecified fall, initial encounter; G47.33 Obstructive sleep apnea (adult) (pediatric); E78.5 Hyperlipidemia, unspecified
CPT/HCPCS: 71101; 71260; 74177; 80047; 80076; 82550; 82553; 84484; 85025; 85610; 85730; 87631; 96374; 99285; J2270; J2405; Q9967

== ENCOUNTER → 2020-06-14 | Outpatient (CLI) | payer MEDICARE, MEDICAID ==
--- NOTE | 2020-06-14 10:28 | REP ---
INDICATION: CONTUSION COMPARISON: Chest x-ray dated 08/31/2017 TECHNIQUE: Frontal view of the chest with multiple views of the left hemithorax. FINDINGS: Frontal view of the chest demonstrates no acute cardiopulmonary process, contusion, effusion, or pneumothorax. Relatively new significant elevation to the left hemidiaphragm with left basilar fibroatelectatic changes noted. Multiple views of the left hemithorax demonstrates no obvious or displaced rib fracture. However subtle injury cannot be excluded. IMPRESSION: 1. Elevation of the left hemidiaphragm with left basilar linear fibroatelectatic changes is nonspecific and relatively new when compared with most recent prior dated 2017. 2. No definite acute or displaced left rib fracture noted. Subtle injury cannot be excluded. <Electronically signed by Kobe Padron > 06/14/20 1024
== END ==
LOC: M WUC 09:40
PROVIDERS: ATTEND Physician Assistant
DX: S20.222A Contusion of left back wall of thorax, initial encounter (principal); X58.XXXA Exposure to other specified factors, initial encounter; Y92.89 Other specified places as the place of occurrence of the external cause; Y93.89 Activity, other specified; Y99.8 Other external cause status

== ENCOUNTER → 2020-07-13 | Outpatient (CLI) | payer MEDICARE, MEDICAID ==
[2020-07-13 11:56] LABS: BASO % 0.5 % (0.0-1.0); EOS # 0.2 10^3/uL (0.0-0.5); EOS % 3.3 % (0.0-3.0); HEMATOCRIT 45.3 % (42.0-52.0); HEMOGLOBIN 15.2 g/dl (13.5-17.5); LYMPH # 1.9 10^3/uL (1.5-5.0); LYMPH % 26.1 % (24.0-44.0); MEAN CORPUSCULAR HEMOGLOBIN 29.8 pg (27.0-33.0); MEAN CORPUSCULAR HGB CONC 33.6 g/dl (32.0-36.5); MEAN CORPUSCULAR VOLUME 88.8 fl (80.0-96.0); MONO # 0.9 10^3/uL (0.0-0.8); MONO % 11.8 % (2.0-8.0); NEUTROPHILS # 4.2 10^3/uL (1.5-8.5); NEUTROPHILS % 57.8 % (36.0-66.0); PLATELET COUNT, AUTOMATED 235 10^3/uL (150-450); WHITE BLOOD COUNT 7.4 10^3/uL (4.0-10.0)
[2020-07-13 12:30] LABS: ALBUMIN 3.8 GM/DL (3.2-5.2); ALT/SGPT 27 U/L (12-78); BILIRUBIN,TOTAL 0.6 MG/DL (0.2-1.0); BLOOD UREA NITROGEN 14 MG/DL (7-18); CALCIUM LEVEL 9.3 MG/DL (8.8-10.2); CARBON DIOXIDE LEVEL 29 MEQ/L (21-32); CHLORIDE LEVEL 106 MEQ/L (98-107); CREATININE FOR GFR 0.65 MG/DL (0.70-1.30); FERRITIN 112 NG/ML (26-388); FREE T4 0.98 NG/DL (0.76-1.46); GLOMERULAR FILTRATION RATE > 60.0 (>42); GLUCOSE, FASTING 81 MG/DL (70-100); POTASSIUM SERUM 4.3 MEQ/L (3.5-5.1); SODIUM LEVEL 140 MEQ/L (136-145); TOTAL PROTEIN 7.2 GM/DL (6.4-8.2)
== END ==
LOC: M WUC 08:47
PROVIDERS: ATTEND Family Medicine
DX: D69.6 Thrombocytopenia, unspecified (principal); E78.5 Hyperlipidemia, unspecified

== ENCOUNTER → 2020-08-28 | Outpatient (CLI) | payer MEDICARE, MEDICAID ==
--- NOTE | 2020-08-28 15:45 | DEXAMM ---
INDICATION: S22.078D CLOSED FX OF TENTH THORACIC VERTEBRA. COMPARISON: None. TECHNIQUE: Bone density was measured using dual-energy x-ray absorptiometry (DEXA). FINDINGS: AP SPINE L1-L4 BMD 1.180 g/cm2 Young Adult T-Score -0.1 Age Matched Z-Score 0.1. LT FEMUR, TOTAL BMD 0.941 g/cm2 Young Adult T-Score -0.5 Age Matched Z-Score -0.4. LT NECK BMD 0.890 g/cm2 Young Adult T-Score -1.1 Age Matched Z-Score -0.1. RT FEMUR, TOTAL BMD 0.883 g/cm2 Young Adult T-Score -1.0 Age Matched Z-Score -0.8. RT NECK BMD 0.833 g/cm2 Young Adult T-Score -1.5 Age Matched Z-Score -0.6. IMPRESSION: There is normal bone density of the spine. There is low bone density of the left hip. There is low bone density of the right hip. FOLLOW-UP: Recommendation for the next bone density exam: 2 years. <Electronically signed by Nicho Shearer > 08/28/20 3531
== END ==
LOC: M WHC 12:49
PROVIDERS: ATTEND Family Medicine
DX: S22.078D Other fracture of T9-T10 vertebra, subsequent encounter for fracture with routine healing (principal); M85.88 Other specified disorders of bone density and structure, other site

== ENCOUNTER → 2020-10-03 | Outpatient (CLI) | payer MEDICARE, MEDICAID ==
--- NOTE | 2020-10-03 11:15 | REP ---
INDICATION: PAIN. COMPARISON: 11/17/2018. TECHNIQUE: Four views left shoulder. FINDINGS: There is no acute fracture or dislocation. The humeral head is high riding with significantly decreased subacromial space consistent with rotator cuff tear. There is moderate narrowing of the glenohumeral joint. There is mild narrowing and spurring at the acromioclavicular joint. IMPRESSION: Degenerative changes. High riding humeral head consistent with rotator cuff tear. <Electronically signed by Nicho Shearer > 10/03/20 1115
== END ==
LOC: M WUC 10:30
PROVIDERS: ATTEND Physician Assistant
DX: M19.012 Primary osteoarthritis, left shoulder (principal); R93.6 Abnormal findings on diagnostic imaging of limbs

== ENCOUNTER 2020-11-07 18:32 | Emergency (ER) | payer MEDICARE, MEDICAID ==
[~2020-11-07] VITALS: Ht 177.8 cm; Wt 77.3 kg
[2020-11-07 18:32] VITALS: BP 125/73
== END 2020-11-07 20:20 | disposition left against medical advice (07) ==
LOC: M ED 18:32
DX: Z53.29 Procedure and treatment not carried out because of patient's decision for other reasons (principal)

== ENCOUNTER → 2021-01-02 | Outpatient (CLI) | payer MEDICARE, MEDICAID ==
[2021-01-02 13:37] LABS: ALBUMIN 3.2 GM/DL (3.2-5.2); BLOOD UREA NITROGEN 14 MG/DL (7-18); C REACTIVE PROTEIN QUANTITATIV 0.56 MG/DL (0.00-0.30); CALCIUM LEVEL 8.7 MG/DL (8.8-10.2); CARBON DIOXIDE LEVEL 25 MEQ/L (21-32); CHLORIDE LEVEL 109 MEQ/L (98-107); CHOLESTEROL LEVEL 141 MG/DL (<200); CHOLESTEROL RISK RATIO 2.238 (<5); CPK CREATINE PHOSPHOKINASE 74 U/L (39-308); CREATININE FOR GFR 0.82 MG/DL (0.70-1.30); GLOMERULAR FILTRATION RATE > 60.0 (>42); GLUCOSE, FASTING 98 MG/DL (70-100); HDL CHOLESTEROL 63 MG/DL (>40); LDL CHOLESTEROL 64 MG/DL (<100); NON-HDL-C 78 MG/DL; NT-PRO BNP 139 PG/ML (<125); PHOSPHORUS LEVEL 3.1 MG/DL (2.5-4.9); POTASSIUM SERUM 4.1 MEQ/L (3.5-5.1); PTH INTACT 23.7 PG/ML (18.5-88.0); SODIUM LEVEL 140 MEQ/L (136-145); TOTAL 25(OH) VITAMIN D 53.3 NG/ML (30.0-100.0); TRIGLYCERIDES LEVEL 68 MG/DL (<150)
[2021-01-02 13:38] LABS: VITAMIN B12 LEVEL 1275 PG/ML (247-911)
== END ==
LOC: M PLALAB 10:09
PROVIDERS: ATTEND Nurse Practitioner Family
DX: E53.8 Deficiency of other specified B group vitamins (principal); M47.816 Spondylosis without myelopathy or radiculopathy, lumbar region; E78.5 Hyperlipidemia, unspecified; G56.03 Carpal tunnel syndrome, bilateral upper limbs; Z79.899 Other long term (current) drug therapy

== ENCOUNTER → 2021-02-11 | Outpatient (CLI) | payer MEDICARE, MEDICAID ==
[~2021-02-11] MED LIST changes: +ACET1TAB55 PO; +D31000TA2 PO; +HM S0.65; +OXYB10TA23 PO; +VITA100066 PO
== END ==
LOC: M LABSMTC 10:37
PROVIDERS: ATTEND Anesthesiology
DX: Z01.812 Encounter for preprocedural laboratory examination (principal); Z11.52 Encounter for screening for COVID-19

== ENCOUNTER 2021-02-14 12:20 | Day surgery (SDC) | payer MEDICARE, MEDICAID ==
[~2021-02-14] VITALS: Ht 170.2 cm; Wt 67.6 kg
[~2021-02-14 12:20] MED LIST changes: +LIDOCAINE 2% 100MG/5ML SDV (FOR ANES.) As Ordered ONE; +NS 1,000 ML IV ONE; +propofoL 200 MG/20 ML VIAL As Ordered ONE
--- OUTSIDE RECORDS SUMMARY | 2021-02-14 12:25 | CCD ---
Author Author [facility] Organization [facility] Address Unknown Phone Unavailable Care Team Providers Care Regional Sales Coordinator Name Role Phone Fabián Roberts Unavailable PROBLEMS Type Condition ICD9-CM Code [id number] Code Onset Dates Condition S tatus W/U Status Risk SNOMED Code Notes Problem Benign prostatic hypertrophy with lower urinary tract symptoms (LUTS) N40.1 Active confirmed 667821880 Problem Vitamin D deficiency E55.9 Active confirmed 26513149 Problem JEFFERSON (obstructive sleep apnea) G47.33 Active confirm ed 76631385 Problem Depression F32.9 Active confirmed 15065327 Problem Nephrolithiasis N20.0 Active confirmed 9557 0007 Problem MR (mental retardation), moderate F71 Active con firmed 49739080 Problem Thrombocytopenia D69.6 Active confirmed 415 081797 Problem Colon cancer screening Z12.11 Active confirmed 443347311 Problem Prostatitis, chronic N41.1 Active confirmed 11427679 Problem Osteoarthritis of spine with radiculopathy, lumbar region M47.26 Active confirmed 579845154 Problem Prostate cancer screening Z12.5 Active confirmed 575480028 Problem Other closed fracture of ten th thoracic vertebra with routine healing, subsequent encounter S22.078D Active confirmed 72083670 5 Problem Oropharyngeal dysphagia R13.12 Active confirmed 14396333 Problem Anxiety disorder F41.9 Active confirmed 197 243077 Problem Bilateral carpal tunnel syndrome G56.03 Active confirmed [id number] Problem B12 deficiency E53.8 Active confirmed 97869 4004 Problem Hyperlipidemia E78.5 Active confirmed 32920 004 Problem Overactive bladder N32.81 Active confirmed 2 84758891 Problem Primary osteoarthritis of both knees M17.0 Act patrice confirmed 662031384 Problem Ataxia R27.0 Active confirmed 23440668 Problem Lumbar spondylosis M47.816 Active confirmed 271248759 ALLERGIES No Known Allergies ENCOUNTERS from 1950 to 2021-01-04 Encounter Location Date Provider Diagnosis [facility] [address] [facility] [phone] [place] [address] Dec, Fabián Roberts Benign prostatic hypertrophy with lower urinary tract symptoms (LUTS) N40.1 IMMUNIZATIONS Vaccine Route Administration Date Status Influenza Pharmacy Given Unknown Feb 12, 2018 Adminis tered Influenza (High Dose 65 & up) IM Intramuscular Mar 13, 2017 A dministered Pneumococcal Adult 0.5mL Pneumovax 23 IM Intramuscular June 05, 2010 Administered TDAP IM Intramuscular Apr 19, 2012 Administered Pneumococcal 0.5mL Prevnar 13 IM Intramuscular Nov 21, 2016 A dministered Influenza 6mo & up Fluzone IM Intramuscular Jan 04, 2014 Admi nistered Influenza 6mo & up Fluzone IM Intramuscular Jan 20, 2013 Admi nistered SOCIAL HISTORY Tobacco Use: Social History Observation Description Date Details (start date - stop date) Never Smoker Sex Assigned At : Social History Observation Description Sex Assigned At Unknown Language: Question Answer Notes Languages spoken: Romanian Jain: Question Answer Notes [employer] Sexual Hx: Question Answer Notes Had sex in the last 12 months (vaginal, oral, or anal)? No Have you ever had an STD? No Alcohol Screening: Question Answer Notes Did you have a drink containing alcohol in the past year? No Points 0 Interpretation Negative Tobacco Use: Question Answer Notes Are you a: never smoker REASON FOR REFERRAL No Information VITAL SIGNS No information MEDICATIONS Medication SIG (Take, Route, Frequency, Duration) Notes Start Da te End Date Status Simvastatin 10 MG 1 tablet in the evening Orally Once a day for 30 da y(s) Active Sertraline HCl 100 MG 2 tablets Orally Once a day for 30 Days Active Cyanocobalamin 500 MCG 1 tablet Orally Once a day for 30 day(s) Active Finasteride 5 MG TAKE ONE TABLET BY MOUTH ONCE DAILY for 30 Not-Taking Tamsulosin HCl 0.4 MG 2 capsules Orally at bedtime for 30 day(s) Not-Taking Carpal Tunnel Wrist Deluxe - as directed _ wear overni ght on R hand; G56.03 for 999 days fax to [phone] July, Active Tamsulosin HCl 0.4 MG TAKE TWO CAPSULES BY MOUTH AT BEDTIME for 30 Active Debrox 6.5 % 5 drops into both ears Otic Twice a day once a week -nurse evaluate and flush ears if needed for 1 days Apr, Active Vitamin D (Cholecalciferol) 2000 UNIT 1 tablet Orally Once a day Active Tylenol 325 MG 1 capsule as needed Orally every 6 hrs Active May Have - go back to work, out to chur ch other activities orally Daily for 30 day(s) Apr, Active Finasteride 5 MG 1 tablet Orally Once a day for 30 day(s) Active Oxybutynin Chloride ER 10 MG 1 tablet Orally Once a day Active Aspirin 81 MG 1 tablet Orally Once a day for 30 Days Active Proctosol HC 2.5 % 1 application Externally bid x 5 days with flares for 30 Days Jun, Not-Taking busPIRone HCl 10 MG 2 tablets Orally Twice a day for 30 Days Active PROCEDURES No Information RESULTS No Results REASON FOR VISIT refill MEDICAL (GENERAL) HISTORY Type Description Date Medical History BPH with LUTS/ho recurrent p rostatitis, ho recurrent UTI (04/2017 c 2 severe sepsis) Medical History history of left UVJ stone Oc tober 2009 causing hydronephrosis- this was patient's first stone and no stone collected/resolved by 05/2010 CT A/P Medical History hyperlipidemia 2A Medical History external hemorrhoids Medical History impaired fasting glucose Medical History chronic MDD/ELIDA Medical History groin intertriginous candidiasis Medical History R anterior nondisplaced rib fractures 7-03/2012 2 mechanical fall Medical History JEFFERSON, severe-10/2015 HST KASSIE 49 on chronic BIPAP via [facility] Medical History B knee OA-severe PF OA, mild medial compartment 07/2018 xray/ 07/2018 6x4 cm polpiteal cyst Medical History lumbar spondylosis-grade 1 L 23 anterolith, mod B L1-S1 NFN by 09/08/19 MRI Medical History mild L knee OA c mild effusion by 06/18/19 xray Medical History T10 superior endplate fracture sp mechan ical fall 06/12/20 Surgical History colonoscopy-sigmoid redundancy-Mandy 02/2011 Surgical History [id number] 10/05/17 Hospitalization History sepsis, severe-WBC 29K, UCX E coli >100K, BCX x 2 NG, dced on elinor x 14D total abx, CT AP NAD 04/23-01/31 Hospitalization History large R parapneumonic effusi on c RLLcollapse 2 RLL PN sp 1500 thoracentesis-rxed cetriaxone/doxy, acute urinary retention sp adams, BCX x 1 NG, pleural CX/cyt negative 08/17-09/30 Goals Section No Information Health Concerns No Information MEDICAL EQUIPMENT No Information MENTAL STATUS No Information FUNCTIONAL STATUS No Information ASSESSMENTS Encounter Date Diagnosis Assessment Notes Treatment Notes Treatm ent Clinical Notes Dec, Benign prostatic hypertrophy with lower urinary tract symptoms (LUTS) (ICD-10 - N40.1) PLAN OF TREATMENT Next Appt Details Provider Name:Shaye Moody, 1- 11:30:00 AM, [address] [place] [address] , [place], [address], Provider Name:Fabián Roberts, 2021-05-10 1 1:15:00 AM, [address] [place] [address] , [place], [address], Provider Name:Tod Duncan, 2021-12-15 1 01:00:00 PM, [address], , [place], [address], Insurance Providers Payer Name Payer Address Payer Phone Insured Name Patient Relati onship to Insured Coverage Start Date Coverage End Date MEDICAID [employer] [address] [facility] [address] [address] MEDICARE Part A and B [address] [facility] [place] [address] [employer] O self
--- OUTSIDE RECORDS SUMMARY | 2021-02-14 12:25 | CCD ---
Author Author [facility] Organization [facility] Address Unknown Phone Unavailable Care Team Providers Care Polymerization Supervisor Name Role Phone Fabián Roberts Unavailable PROBLEMS Type Condition ICD9-CM Code [id number] Code Onset Dates Condition S tatus W/U Status Risk SNOMED Code Notes Problem Benign prostatic hypertrophy with lower urinary tract symptoms (LUTS) N40.1 Active confirmed 349358554 Problem Vitamin D deficiency E55.9 Active confirmed 07252056 Problem JEFFERSON (obstructive sleep apnea) G47.33 Active confirm ed 06230587 Problem Depression F32.9 Active confirmed 64952786 Problem Nephrolithiasis N20.0 Active confirmed 9557 0007 Problem MR (mental retardation), moderate F71 Active con firmed 62521930 Problem Thrombocytopenia D69.6 Active confirmed 415 147731 Problem Colon cancer screening Z12.11 Active confirmed 328662714 Problem Prostatitis, chronic N41.1 Active confirmed 36223538 Problem Osteoarthritis of spine with radiculopathy, lumbar region M47.26 Active confirmed 075618230 Problem Prostate cancer screening Z12.5 Active confirmed 723828200 Problem Other closed fracture of ten th thoracic vertebra with routine healing, subsequent encounter S22.078D Active confirmed 21824105 5 Problem Oropharyngeal dysphagia R13.12 Active confirmed 91556451 Problem Anxiety disorder F41.9 Active confirmed 197 460276 Problem Bilateral carpal tunnel syndrome G56.03 Active confirmed 86601390843158792 Problem B12 deficiency E53.8 Active confirmed 35660 4004 Problem Hyperlipidemia E78.5 Active confirmed 52184 004 Problem Overactive bladder N32.81 Active confirmed 2 51462190 Problem Primary osteoarthritis of both knees M17.0 Act patrice confirmed 777345890 Problem Ataxia R27.0 Active confirmed 39745969 Problem Lumbar spondylosis M47.816 Active confirmed 693730686 ALLERGIES No Known Allergies ENCOUNTERS from 1950 to 2020-12-27 Encounter Location Date Provider Diagnosis [facility] [address] [facility] [phone] [place] [address] Dec, Fabián Roberts IMMUNIZATIONS Vaccine Route Administration Date Status Influenza [...] Unknown Language: Question Answer Notes Languages spoken: Icelandic Rastafari: Question Answer Notes Rastafari 06 Restorationism Sexual Hx: Question Answer Notes Had sex [...] Notes Start Da te End Date Status Oxybutynin Chloride ER 10 MG 1 tablet Orally Once a day for 90 day(s) Active Vitamin B-12 500 MCG TAKE ONE TABLET BY MOUTH ONC E DAILY Orally Once a day for 60 Active Debrox 6.5 % 5 drops into both ears Otic Twice a day once a week -nurse evaluate and flush ears if needed for 1 days Apr, Active Simvastatin 10 MG TAKE ONE TABLET BY MOUTH EVERY EVENING for 30 Active Tylenol 325 MG 1 capsule as needed Orally every 6 hrs Active Cyanocobalamin 500 MCG 1 tablet Orally Once a day for 30 day(s) Active Tamsulosin HCl 0.4 MG TAKE TWO CAPSULES BY MOUTH AT BEDTIME for 30 Active May Have - go back to work, out to [employer] other activities orally Daily for 30 day(s) Apr, Active Sertraline HCl 100 MG 2 tablets Orally Once a day for 30 Active Simvastatin 10 MG 1 tablet in the evening Orally Once a day for 30 da y(s) Active Carpal Tunnel Wrist Deluxe - as directed _ wear overni ght on R hand; G56.03 for 999 days fax to [phone] July, Active busPIRone HCl 10 MG 2 tablets Orally Twice a day for 30 Active Aspirin 81 MG 1 tablet Orally Once a day for 30 Days Active Finasteride 5 MG TAKE ONE TABLET BY MOUTH ONCE DAILY for 30 Active Proctosol HC 2.5 % 1 application Externally bid x 5 days with flares for 30 Days Jun, Active Vitamin D (Cholecalciferol) 2000 UNIT 1 tablet Orally Once a day for 90 days Active PROCEDURES No Information RESULTS No Results [...] Medical History R anterior nondisplaced rib fractures -03/2012 2 mechanical fall Medical History JEFFERSON, severe-10/2015 [...] Surgical History colonoscopy-sigmoid redundancy-Mandy 02/2011 Surgical History [id number]-[id number]-GUX 10/05/17 Hospitalization History sepsis, severe-WBC 29K, UCX [...] No Information FUNCTIONAL STATUS No Information ASSESSMENTS No Information PLAN OF TREATMENT Medication Medication Name Sig Start Date Stop Date Tamsulosin HCl 0.4 MG TAKE TWO CAPSULES BY MOUTH AT BEDTIME for 30 Finasteride 5 MG TAKE ONE TABLET BY MOUTH ONCE DAILY for 30 Cyanocobalamin 500 MCG 1 tablet Orally Once a day for 30 day(s) Tylenol 325 MG 1 capsule as needed Orally every 6 hrs Carpal Tunnel Wrist Deluxe - as directed _ wear overni ght on R hand; G56.03 for 999 days July, Aspirin 81 MG 1 tablet Orally Once a day for 30 Days Simvastatin 10 MG 1 tablet in the evening Orally Once a day for 30 day(s) Simvastatin 10 MG TAKE ONE TABLET BY MOUTH EVERY EVENING for 30 Sertraline HCl 100 MG 2 tablets Orally Once a day for 30 busPIRone HCl 10 MG 2 tablets Orally Twice a day for 30 Vitamin D (Cholecalciferol) 2000 UNIT 1 tablet Orally Once a day for 90 days Oxybutynin Chloride ER 10 MG 1 tablet Orally Once a day for 90 d ay(s) Vitamin B-12 500 MCG TAKE ONE TABLET BY MOUTH ONC E DAILY Orally Once a day for 60 Next Appt Details Provider Name:Gail Kyle, 2020-03 0 09:30:00 AM, [address] [place] [address] , [place], [address], Provider Name:Tod Duncan, 2020-12- 2 01:00:00 PM, [address], , [place], [address], Provider Name:Shaye Moody, 1-14 11:30:00 AM, [address] [place] [address] , [place], [address], Insurance Providers Payer Name Payer Address Payer Phone Insured Name Patient Relati onship to Insured Coverage Start Date Coverage End Date MEDICARE Part A and B [address] [facility] [address] FAIZAN TOURE MEDICAID [employer] [address] [facility] [address] FAIZAN TOURE
--- OUTSIDE RECORDS SUMMARY | 2021-02-14 12:25 | CCD ---
Author Author [facility] Organization [facility] Address Unknown Phone Unavailable Care Team Providers Care Supervisor Machine Setter Name Role Phone Fabián Roberts Unavailable PROBLEMS Type Condition ICD9-CM Code [id number] Code Onset Dates Condition S tatus W/U Status Risk SNOMED Code Notes Problem Benign prostatic hypertrophy with lower urinary tract symptoms (LUTS) N40.1 Active confirmed 703595358 Problem Vitamin D deficiency E55.9 Active confirmed 77480466 Problem JEFFERSON (obstructive sleep apnea) G47.33 Active confirm ed 27550822 Problem Depression F32.9 Active confirmed 56838343 Problem Nephrolithiasis N20.0 Active confirmed 9557 0007 Problem MR (mental retardation), moderate F71 Active con firmed 15121804 Problem Thrombocytopenia D69.6 Active confirmed 415 972572 Problem Colon cancer screening Z12.11 Active confirmed 645203261 Problem Prostatitis, chronic N41.1 Active confirmed 80681720 Problem Osteoarthritis of spine with radiculopathy, lumbar region M47.26 Active confirmed 603903199 Problem Prostate cancer screening Z12.5 Active confirmed 894515773 Problem Other closed fracture of ten th thoracic vertebra with routine healing, subsequent encounter S22.078D Active confirmed 92614462 5 Problem Oropharyngeal dysphagia R13.12 Active confirmed 30465397 Problem Anxiety disorder F41.9 Active confirmed 197 254105 Problem Bilateral carpal tunnel syndrome G56.03 Active confirmed 73193282661887085 Problem B12 deficiency E53.8 Active confirmed 73021 4004 Problem Hyperlipidemia E78.5 Active confirmed 18168 004 Problem Overactive bladder N32.81 Active confirmed 2 04543268 Problem Primary osteoarthritis of both knees M17.0 Act patrice confirmed 300223158 Problem Ataxia R27.0 Active confirmed 45691263 Problem Lumbar spondylosis M47.816 Active confirmed 439931599 ALLERGIES No Known Allergies ENCOUNTERS from 1950 to 2020-12-04 Encounter Location Date Provider Diagnosis [facility] [address] [facility] [phone] [place] [address] Nov, Fabián oRberts IMMUNIZATIONS Vaccine Route Administration Date Status Influenza (High Dose 65 & up) IM Intramuscular Mar 13, 2017 A dministered Influenza Pharmacy Given Unknown Feb 12, 2018 Adminis tered Pneumococcal Adult 0.5mL Pneumovax 23 IM Intramuscular [...] Unknown Language: Question Answer Notes Languages spoken: Turkish Anabaptism: Question Answer Notes Anabaptism 06 Samaritan Sexual Hx: Question Answer Notes Had sex [...] Notes Start Da te End Date Status Vitamin B-12 500 MCG TAKE ONE TABLET BY MOUTH ONC E DAILY Orally Once a day for 60 Active Vitamin D (Cholecalciferol) 2000 UNIT 1 tablet Orally Once a day for 90 days Active Debrox 6.5 % 5 drops into both ears Otic Twice a day once a week -nurse evaluate and flush ears if needed for 1 days Apr, Active Cyanocobalamin 500 MCG 1 tablet Orally Once a day for 30 day(s) Active Oxybutynin Chloride ER 10 MG 1 tablet Orally Once a day for 90 day(s) Active Tylenol 325 MG 1 capsule as needed Orally every 6 hrs Active Tamsulosin HCl 0.4 MG TAKE TWO CAPSULES BY MOUTH AT BEDTIME for 30 Active May Have - go back to work, out to [employer] ch other activities orally Daily for 30 day(s) Apr, Active Sertraline HCl 100 MG 2 tablets Orally Once a day for 30 Active Simvastatin 10 MG TAKE ONE TABLET BY MOUTH EVERY EVENING for 30 Active Carpal Tunnel Wrist Deluxe - as directed _ wear overni ght on R hand; G56.03 for 999 days fax to [phone] July, Active Proctosol HC 2.5 % 1 application Externally bid x 5 days with flares for 30 Days Jun, Active Aspirin 81 MG 1 tablet Orally Once a day for 30 Days Active Finasteride 5 MG TAKE ONE TABLET BY MOUTH ONCE DAILY for 30 Active Simvastatin 10 MG 1 tablet in the evening Orally Once a day for 30 da y(s) Active busPIRone HCl 10 MG 2 tablets Orally Twice a day for 30 Active PROCEDURES No Information RESULTS No Results REASON FOR VISIT PT order MEDICAL (GENERAL) HISTORY Type Description Date Medical [...] Surgical History colonoscopy-sigmoid redundancy-Mandy 02/2011 Surgical History [id number]-Kxtfmkytj-[id number] 10/05/17 Hospitalization History sepsis, severe-WBC 29K, UCX [...] TABLET BY MOUTH ONCE DAILY for 30 Tylenol 325 MG 1 capsule as needed Orally every 6 hrs Oxybutynin Chloride ER 10 MG 1 tablet Orally Once a day for 90 d ay(s) Carpal Tunnel Wrist Deluxe - as directed _ wear overni ght on R hand; G56.03 for 999 days July, Aspirin 81 MG 1 tablet Orally Once a day for 30 Days Simvastatin 10 MG TAKE ONE TABLET BY MOUTH EVERY EVENING for 30 Cyanocobalamin 500 MCG 1 tablet Orally Once a day for 30 day(s) Sertraline HCl 100 MG 2 tablets Orally Once a day for 30 Simvastatin 10 MG 1 tablet in the evening Orally Once a day for 30 day(s) busPIRone HCl 10 MG 2 tablets Orally Twice a day for 30 Vitamin B-12 500 MCG TAKE ONE TABLET BY MOUTH ONC E DAILY Orally Once a day for 60 Vitamin D (Cholecalciferol) 2000 UNIT 1 tablet Orally Once a day for 90 days Next Appt Details Provider Name:Fabián Roberts, 2020 1 1:45:00 AM, [address], , [place], [address], Provider Name:Tod Duncan, 2020-12-15 2 01:00:00 PM, [address], , [place], [address], Insurance Providers Payer Name Payer Address Payer Phone Insured Name Patient Relati onship to Insured Coverage Start Date Coverage End Date MEDICAID [employer] [address] [place] [address] FAIZAN TOURE self MEDICARE Part A and B [address] [facility] [address] [phone] FAIZAN TOURE self
--- OUTSIDE RECORDS SUMMARY | 2021-02-14 12:25 | CCD ---
Author Author [facility] Organization [facility] Address Unknown Phone Unavailable Care Team Providers Care Printed Circuit Boards Inspector Name Role Phone Fabián Roberts Unavailable PROBLEMS Type Condition ICD9-CM Code [id number] Code Onset Dates Condition S tatus W/U Status Risk SNOMED Code Notes Problem Benign prostatic hypertrophy with lower urinary tract symptoms (LUTS) N40.1 Active confirmed 481410346 Problem Vitamin D deficiency E55.9 Active confirmed 67900406 Problem JEFFERSON (obstructive sleep apnea) G47.33 Active confirm ed 42186450 Problem Depression F32.9 Active confirmed 61416918 Problem Nephrolithiasis N20.0 Active confirmed 9557 0007 Problem MR (mental retardation), moderate F71 Active con firmed 98070582 Problem Thrombocytopenia D69.6 Active confirmed 415 589599 Problem Colon cancer screening Z12.11 Active confirmed 984578087 Problem Prostatitis, chronic N41.1 Active confirmed 44374530 Problem Osteoarthritis of spine with radiculopathy, lumbar region M47.26 Active confirmed 999659156 Problem Prostate cancer screening Z12.5 Active confirmed 133788753 Problem Other closed fracture of ten th thoracic vertebra with routine healing, subsequent encounter S22.078D Active confirmed 28181844 5 Problem Oropharyngeal dysphagia R13.12 Active confirmed 78855062 Problem Anxiety disorder F41.9 Active confirmed 197 371003 Problem Bilateral carpal tunnel syndrome G56.03 Active confirmed 25449196466069724 Problem B12 deficiency E53.8 Active confirmed 22003 4004 Problem Hyperlipidemia E78.5 Active confirmed 03570 004 Problem Overactive bladder N32.81 Active confirmed 2 91167674 Problem Primary osteoarthritis of both knees M17.0 Act patrice confirmed 795678352 Problem Ataxia R27.0 Active confirmed 54176213 Problem Lumbar spondylosis M47.816 Active confirmed 172271474 ALLERGIES No Known Allergies ENCOUNTERS from 1950 to 2020-12-26 Encounter Location Date Provider Diagnosis [facility] [address] [facility] [phone] [place] [address] Dec, Fabián Roberts Overactive bladder N32.81 IMMUNIZATIONS Vaccine Route Administration Date Status Influenza [...] Unknown Language: Question Answer Notes Languages spoken: Mongolian Zoroastrianism: Question Answer Notes Zoroastrianism 06 Spiritism Sexual Hx: Question Answer Notes Had sex [...] - go back to work, out to [employer] ch other activities orally Daily for 30 day(s) Apr, Active Sertraline HCl 100 MG 2 tablets Orally Once a day for 30 Active Simvastatin 10 MG 1 tablet in the evening Orally Once a day for 30 da y(s) Active Carpal Tunnel Wrist Deluxe - as directed _ wear overni ght on R hand; G56.03 for 999 days fax to [phone] July, Active busPIRone HCl 10 MG 2 [...] Information RESULTS No Results REASON FOR VISIT Oxybutynin MEDICAL (GENERAL) HISTORY Type Description Date Medical [...] Surgical History colonoscopy-sigmoid redundancy-Mandy 02/2011 Surgical History [id number]-Mjyctyunn-GUC 10/05/17 Hospitalization History sepsis, severe-WBC 29K, UCX E coli >100K, BCX x 2 NG, dced on elinor x 14D total abx, CT AP NAD 2/8-01/31 Hospitalization History large R parapneumonic effusi on c RLLcollapse 2 RLL PN sp 1500 thoracentesis-rxed cetriaxone/doxy, acute urinary retention sp adams, BCX x 1 NG, pleural CX/cyt negative 08/17-09/30 Goals Section No Information Health Concerns No Information MEDICAL EQUIPMENT No Information MENTAL STATUS No Information FUNCTIONAL STATUS No Information ASSESSMENTS Encounter Date Diagnosis Assessment Notes Treatment Notes Treatm ent Clinical Notes Dec, Overactive bladder (ICD-10 - N32.81) PLAN OF TREATMENT Medication Medication Name Sig [...] Next Appt Details Provider Name:Gail Kyle, 2020-03 0- 09:30:00 AM, [address] [facility], , [place], [address], Provider Name:Tod Duncan, 2020-12-15 2 01:00:00 PM, [address], , [place], [address], Provider Name:Shaye Moody, 1-14 11:30:00 AM, [address] [facility] [phone], [place], [address], Insurance Providers Payer Name Payer Address Payer Phone Insured Name Patient Relati onship to Insured Coverage Start Date Coverage End Date MEDICAID [employer] [address] [facility] [address] FAIZAN TOURE MEDICARE Part A and B [address] [facility] [address] [phone] FAIZAN TOURE
--- OUTSIDE RECORDS SUMMARY | 2021-02-14 12:25 | CCD ---
Author Author [facility] Organization [facility] Address Unknown Phone Unavailable Care Team Providers Care Croze Machine Operator Name Role Phone Fabián Roberts Unavailable PROBLEMS Type Condition ICD9-CM Code KBV57-NS Code Onset Dates Condition S tatus W/U Status Risk SNOMED Code Notes Problem Depression F32.9 Active confirmed 79936396 Problem Benign prostatic hypertrophy with lower urinary tract symptoms (LUTS) N40.1 Active confirmed 069183005 Problem MR (mental retardation), moderate F71 Active con firmed 68839115 Problem JEFFERSON (obstructive sleep apnea) G47.33 Active confirm ed 10602314 Problem Colon cancer screening Z12.11 Active confirmed 684130266 Problem Nephrolithiasis N20.0 Active confirmed 9557 0007 Problem B12 deficiency E53.8 Active confirmed 46044 4004 Problem Thrombocytopenia D69.6 Active confirmed 415 135820 Problem Osteoarthritis of spine with radiculopathy, lumbar region M47.26 Active confirmed 962415639 Problem Prostate cancer screening Z12.5 Active confirmed 164309004 Problem Overactive bladder N32.81 Active confirmed 2 06836693 Problem Other closed fracture of ten th thoracic vertebra with routine healing, subsequent encounter S22.078D Active confirmed 20091051 5 Problem Prostatitis, chronic N41.1 Active confirmed 64362110 Problem Hyperlipidemia E78.5 Active confirmed 36597 004 Problem Bilateral carpal tunnel syndrome G56.03 Active confirmed 65846526371888648 Problem Oropharyngeal dysphagia R13.12 Active confirmed 50228971 Problem Anxiety disorder F41.9 Active confirmed 197 695951 Problem Vitamin D deficiency E55.9 Active confirmed 98559265 Problem Primary osteoarthritis of both knees M17.0 Act patrice confirmed 901716198 Problem Ataxia R27.0 Active confirmed 70863596 Problem Lumbar spondylosis M47.816 Active confirmed 588087923 Problem Benign prostatic hyperplasia , unspecified whether lower urinary tract symptoms present N40.0 Active confirmed 355915650 ALLERGIES No Known Allergies ENCOUNTERS from 1950 to 2021-01-30 Encounter Location Date Provider Diagnosis [facility] [address] [facility] [phone] [place] [address] 16 Jan, 2021 Fabián Roberts B12 deficiency E53.8 IMMUNIZATIONS Vaccine Route Administration Date Status Influenza [...] Unknown Language: Question Answer Notes Languages spoken: Filipino Buddhist: Question Answer Notes Buddhist 06 Baptist Sexual Hx: Question Answer Notes [...] Once a day for 30 Days Active Vitamin D (Cholecalciferol) 2000 UNIT 1 tablet Orally Once a day Active Finasteride 5 MG TAKE ONE TABLET BY MOUTH ONCE DAILY for 30 Not-Taking Tamsulosin HCl 0.4 MG 2 capsules Orally at bedtime for 30 day(s) Not-Taking Carpal Tunnel Wrist Deluxe - as directed _ wear overni ght on R hand; G56.03 for 999 days fax to [phone] July, Active Tamsulosin HCl 0.4 MG TAKE TWO CAPSULES BY MOUTH AT BEDTIME for 30 Active Debrox 6.5 % 5 drops into both ears Otic Twice a day once a week -nurse evaluate and flush ears if needed for 1 days 05 Apr, 2018 Active Cyanocobalamin 500 MCG 1 tablet Orally Once a day for 30 day(s) Jan, Active Tylenol 325 MG 1 capsule as needed Orally every 6 hrs Active May Have - go back to work, out to [employer] ch other activities orally Daily for 30 [...] Information RESULTS No Results REASON FOR VISIT vitamin b12 MEDICAL (GENERAL) HISTORY Type Description Date Medical [...] endplate fracture sp mechan ical fall 06/12/20 Medical History History of UTI Surgical History colonoscopy-sigmoid meghna-Mandy 02/2011 Surgical History [id number]-[id number]-IRK 10/05/17 Hospitalization History sepsis, severe-WBC 29K, UCX [...] Notes Treatment Notes Treatm ent Clinical Notes Jan, B12 deficiency (ICD-10 - E53.8) PLAN OF TREATMENT Medication Medication Name Sig Start Date Stop Date Cyanocobalamin 500 MCG 1 tablet Orally Once a day for 30 day(s) Jan, Next Appt Details Provider Name:Shaye Moody, -14 11:30:00 AM, [address] [place] [address] , [place], [address], Provider Name:Fabián Roberts, 2021-05-10 1 1:15:00 AM, [address] [place] [address] , [place], [address], Provider Name:Tod Duncan, 2021-12-15 1 01:00:00 PM, [address], , [place], [address], Insurance Providers Payer Name Payer Address Payer Phone Insured Name Patient Relati onship to Insured Coverage Start Date Coverage End Date MEDICAID [employer] [address] [facility] [address] FAIZAN TOURE MEDICARE Part A and B [address] [facility] [address] FAIZAN TOURE
--- OUTSIDE RECORDS SUMMARY | 2021-02-14 12:25 | CCD | Continuity of Care Document ---
Author Author Sreekanth ROSSI MA Organization Unknown Address [address] [facility] [address] [place] [address] Phone [phone] Care Team Providers Care Flagsetter Name Role Phone Fabián Roberts M.D. AUT[facility] [phone] Adebayo Covarrubias M.D. AUT[facility] [phone] Saurabh Peng DO AUTM [phone] [facility] Unavailable Problems Description No Information Available Social History Type Date Description Comments Sex Unknown ETOH Use Denies alcohol use Tobacco Use Start: Unknown Denies Smoking Recreational Drug Use Denies Drug Use Smoking Status Reviewed: 04/12/20 Denies Smoking Allergies and adverse reactions Active Allergies Criticality Reaction | Severity Comments Date Silvadene Unable to assess criticality 08/31/2017 Medications Active Medications SIG Qnty Indications Ordering Provide r Date Buspirone HCL 10mg Tablets 2 tabs by mouth twice a day Unknown Finasteride 5mg Tablets 1 by mouth every day Unknown Zoloft 100mg Tablets 2 tabs by mouth every day 60tabs Unknown Flomax 0.4mg Capsules 2 caps by mouth twice a day Unknown Vitamin D 2000Unit Tablets 1 po qd Unknown Zocor 10mg Tablets 1 tab by mouth every night Unknown Oxybutynin Chloride ER 5mg Tablets ER 24HR 1 tab by mouth every night 30tabs Unknown 0 Aspirin 81mg Tablets 1 by mouth every day Unknown Vitamin B12 500mcg Tablets 1 by mouth every day Unknown BIPAP Device 26/21CM Rate 10 -marras Unknown Immunizations Description No Information Available Vital Signs Date Vital Result Comment 01/07/2021 9:32am BP Systolic 97 mmHg BP Diastolic 62 mmHg Heart Rate 97 /min Height 67 inches 5'7" Weight 154.12 lb BMI (Body Mass Index) 24.1 kg/m2 [place] Body Weight 148 lb Weight 69.911 kg BSA (Body Surface Area) 1.81 m2 04/12/2020 10:31am BP Systolic 110 mmHg BP Diastolic 70 mmHg Heart Rate 84 /min O2 % BldC Oximetry 95 % Body Temperature 96.3 F Height 67 inches 5'7" Weight 165.00 lb BMI (Body Mass Index) 25.8 kg/m2 [place] Body Weight 148 lb Weight 74.844 kg BSA (Body Surface Area) 1.86 m2 Results Description No Information Available Procedures Date Code Description Status 01/07/2021 27624 Office/Outpatient New Moderate M DM 45-59 Minutes Completed Medical Devices Description No Information Available Encounters Type Date Location Provider Dx Diagnosis Office Visit 01/07/2021 9:15a [facility] REEMA Vance Z12.11 Encounter for screening for malignant ne oplasm of colon K64.9 Unspecified hemorrhoids G47.33 Obstructive sleep apnea (martir lt) (pediatric) Assessments Date Code Description Provider 01/07/2021 Z12.11 Encounter for screening for carlos manuel gnant neoplasm of colon REEMA Li 01/07/2021 K64.9 Unspecified hemorrhoids REEMA Becerra 01/07/2021 G47.33 Obstructive sleep apnea (adult) (pediatric) REEMA Li Plan of Treatment Future Appointment(s):* 02/28/2021 10:45 am - REEMA Li at [facility] * 02/14/2021 2:30 pm - Juma Galvan JR, MD at [facility] 01/07/2021 - REEMA Li* Z12.11 Encounter for screening for malignant neoplasm of colon * K64.9 Unspecified hemorrhoids * G47.33 Obstructive sleep apnea (adult) (pediatric) Functional Status Description No Information Available Mental Status Description No Information Available Referrals Description No Information Available
--- OUTSIDE RECORDS SUMMARY | 2021-02-14 12:25 | CCD | Continuity of Care Document ---
Author Author Sreekanth ROSSI UT Organization Unknown Address [address] [facility] [address] [place] [address] Phone [phone] Care Team Providers Care [employer] Rep Name Role Phone Fabián Roberts M.D. AUTM [phone] Adebayo Covarrubias M.D. AUTM [phone] Saurabh Peng DO AUTM [phone] AUTM Unavailable Problems Description No Information Available [...] lb BMI (Body Mass Index) 24.1 kg/m2 [place] Body Weight 148 lb Weight 69.911 kg BSA (Body Surface Area) 1.81 m2 04/12/2020 10:31am BP Systolic 110 mmHg BP Diastolic 70 mmHg Heart Rate 84 /min O2 % BldC Oximetry 95 % Body Temperature 96.3 F Height 67 inches 5'7" Weight 165.00 lb BMI (Body Mass Index) 25.8 kg/m2 Oxford Body Weight 148 lb Weight 74.844 kg BSA (Body Surface Area) 1.86 m2 Results Description No Information Available Procedures Description No Information Available Medical Devices Description No Information Available Encounters Description No Information Available Assessments Date Code Description Provider 01/07/2021 Z12.11 Encounter for screening for carlos manuel gnant neoplasm of colon REEMA Li 01/07/2021 K64.9 Unspecified hemorrhoids EREMA Becerra Plan of Treatment No Information Available Functional Status Description No Information Available Mental Status Description No Information Available Referrals Description No Information Available
--- OUTSIDE RECORDS SUMMARY | 2021-02-14 12:25 | CCD ---
Author Author [facility] Organization [facility] Address Unknown Phone Unavailable Care Team Providers Care Retail Branch Manager Name Role Phone Tod Duncan Unavailable PROBLEMS Type Condition ICD9-CM Code AMA80-IF Code Onset Dates Condition S tatus W/U Status Risk SNOMED Code Notes Problem Depression F32.9 Active confirmed 74679853 Problem Benign prostatic hypertrophy with lower urinary tract symptoms (LUTS) N40.1 Active confirmed 643061396 Problem MR (mental retardation), moderate F71 Active con firmed 53103632 Problem JEFFERSON (obstructive sleep apnea) G47.33 Active confirm ed 45466845 Problem Colon cancer screening Z12.11 Active confirmed 632721486 Problem Nephrolithiasis N20.0 Active confirmed 9557 0007 Problem B12 deficiency E53.8 Active confirmed 30490 4004 Problem Thrombocytopenia D69.6 Active confirmed 415 155006 Problem Osteoarthritis of spine with radiculopathy, lumbar region M47.26 Active confirmed 631318614 Problem Prostate cancer screening Z12.5 Active confirmed 817504275 Problem Overactive bladder N32.81 Active confirmed 2 33672175 Problem Other closed fracture of ten th thoracic vertebra with routine healing, subsequent encounter S22.078D Active confirmed 35238579 5 Problem Prostatitis, chronic N41.1 Active confirmed 95093755 Problem Hyperlipidemia E78.5 Active confirmed 57087 004 Problem Bilateral carpal tunnel syndrome G56.03 Active confirmed 55951130177801986 Problem Oropharyngeal dysphagia R13.12 Active confirmed 34694969 Problem Anxiety disorder F41.9 Active confirmed 197 186720 Problem Vitamin D deficiency E55.9 Active confirmed 88002387 Problem Primary osteoarthritis of both knees M17.0 Act patrice confirmed 790214311 Problem Ataxia R27.0 Active confirmed 05114073 Problem Lumbar spondylosis M47.816 Active confirmed 821958320 Problem Benign prostatic hyperplasia , unspecified whether lower urinary tract symptoms present N40.0 Active confirmed 383923601 ALLERGIES No Known Allergies ENCOUNTERS from 1950 to 2021-01-22 Encounter Location Date Provider Diagnosis [facility] [phone] [place] [address] Dec, Tod Duncan Benign prostatic hyperplasia, unspecifie d whether lower urinary tract symptoms present N40.0 ; History of kidney stones Z87.442 and History of UTI Z87.440 IMMUNIZATIONS Vaccine Route Administration Date Status Influenza (High Dose 65 & up) IM Intramuscular Mar 13, 2017 A dministered Pneumococcal Adult 0.5mL Pneumovax 23 IM Intramuscular June 05, 2010 Administered Influenza Pharmacy Given Unknown Feb 12, 2018 Adminis tered TDAP IM Intramuscular Apr 19, 2012 Administered [...] Language: Question Answer Notes Languages spoken: Icelandic Taoism: Question Answer Notes Taoism 06 Rastafarian Sexual Hx: Question Answer Notes Had sex in the last 12 months (vaginal, oral, or anal)? No Have you ever had an STD? No Alcohol Screening: Question Answer Notes Did you have a drink containing alcohol in the past year? No Points 0 Interpretation Negative Tobacco Use: Question Answer Notes Are you a: never smoker REASON FOR REFERRAL No Information VITAL SIGNS Weight 153 lbs Dec, Weight-kg 69.4 kg Dec, Height 69 in Dec, BMI 22.59 kg/m2 Dec, Heart Rate 86 /min Dec, Respiratory Rate 18 /min Dec, Temperature 97.5 degrees Fahrenheit Dec, Oximetry 93% Dec, Blood pressure systolic 104 mm Hg Dec, Blood pressure diastolic 62 mm Hg 22 Oct, 2021 MEDICATIONS Medication SIG (Take, Route, Frequency, Duration) Notes Start Da te End Date Status Cyanocobalamin 250 MCG 1 tablet Orally Once a day for 30 day(s) Active Simvastatin 10 MG 1 tablet in the evening Orally Once a day for 30 da y(s) Active Vitamin D (Cholecalciferol) 2000 UNIT 1 tablet Orally Once a day Active Finasteride 5 MG TAKE ONE TABLET BY MOUTH ONCE DAILY for 30 Not-Taking Tamsulosin HCl 0.4 MG 2 capsules Orally at bedtime for 30 day(s) Not-Taking Carpal Tunnel Wrist Deluxe - as directed _ wear overni ght on R hand; G56.03 for 999 days fax to [phone] July, Active Tamsulosin HCl 0.4 MG TAKE TWO CAPSULES BY MOUTH AT BEDTIME for 30 Active Oxybutynin Chloride ER 10 MG 1 tablet Orally Once a day Active Debrox 6.5 % 5 drops into both ears Otic Twice a day once a week -nurse evaluate and flush ears if needed for 1 days Apr, Active Tylenol 325 MG 1 capsule as needed Orally every 6 hrs Active busPIRone HCl 10 MG 2 tablets Orally Twice a day for 30 Days Active Finasteride 5 MG 1 tablet Orally Once a day for 30 day(s) Active May Have - go back to work, out to [employer] other activities orally Daily for 30 day(s) Apr, Active Aspirin 81 MG 1 tablet Orally Once a day for 30 Days Active Proctosol HC 2.5 % 1 application Externally bid x 5 days with flares for 30 Days Jun, Not-Taking Sertraline HCl 100 MG 2 tablets Orally Once a day for 30 Days Active PROCEDURES No Information RESULTS No Results REASON FOR VISIT YEARLY FU MEDICAL (GENERAL) HISTORY Type Description Date Medical [...] Medical History R anterior nondisplaced rib fractures 7-10 03/2012 2 mechanical fall Medical History JEFFERSON, severe-10/2015 [...] History History of UTI Surgical History colonoscopy-sigmoid redundancy-Mandy 02/2011 Surgical History [id number] 10/05/17 Hospitalization History sepsis, severe-WBC 29K, UCX [...] Treatm ent Clinical Notes Dec, Benign prostatic hyperplasia , unspecified whether lower urinary tract symptoms present (ICD-10 - N40.0) Dec, History of kidney stones (ICD-10 - Z87.442) Dec, History of UTI (ICD-10 - Z87.440) PLAN OF TREATMENT Medication Medication Name Sig Start Date Stop Date Cyanocobalamin 250 MCG 1 tablet Orally Once a day for 30 day(s) Next Appt Details 1 Year Reason:bph Provider Name:Shaye Moody, 03-29 11:30:00 AM, [address] [place] [address], , [place], [address], Provider Name:Fabián Roberts, 2021-05-10 1 1:15:00 AM, [address] [place] [address], , [place], [address], Provider Name:Tod Duncan, 2021-12-15 1 01:00:00 PM, [address], , [place], [address], [facility] Insurance Providers Payer Name Payer Address Payer Phone Insured Name Patient Relati onship to Insured Coverage Start Date Coverage End Date MEDICARE Part A and B [address] [facility] [phone] FAIZAN TOURE MEDICAID [employer] [address] [facility] [id number] FAIZAN TOURE self
--- OUTSIDE RECORDS SUMMARY | 2021-02-14 12:26 | CCD ---
Author Author [facility] Organization [facility] Address Unknown Phone Unavailable Care Team Providers Care Geospatial Information Scientist Name Role Phone Ian Blevins Unavailable PROBLEMS Type Condition ICD9-CM Code [id number] Code Onset Dates Condition S tatus W/U Status Risk SNOMED Code Notes Problem Benign prostatic hypertrophy with lower urinary tract symptoms (LUTS) N40.1 Active confirmed 967200946 Problem Vitamin D deficiency E55.9 Active confirmed 21354888 Problem JEFFERSON (obstructive sleep apnea) G47.33 Active confirm ed 13723086 Problem Depression F32.9 Active confirmed 47045001 Problem Nephrolithiasis N20.0 Active confirmed 9557 0007 Problem MR (mental retardation), moderate F71 Active con firmed 05987281 Problem Thrombocytopenia D69.6 Active confirmed 415 367847 Problem Colon cancer screening Z12.11 Active confirmed 449115662 Problem Prostatitis, chronic N41.1 Active confirmed 36992489 Problem Osteoarthritis of spine with radiculopathy, lumbar region M47.26 Active confirmed 411784420 Problem Prostate cancer screening Z12.5 Active confirmed 799516974 Problem Other closed fracture of ten th thoracic vertebra with routine healing, subsequent encounter S22.078D Active confirmed 65270722 5 Problem Oropharyngeal dysphagia R13.12 Active confirmed 81413613 Problem Anxiety disorder F41.9 Active confirmed 197 627819 Problem Bilateral carpal tunnel syndrome G56.03 Active confirmed 99322138678729525 Problem B12 deficiency E53.8 Active confirmed 14117 4004 Problem Hyperlipidemia E78.5 Active confirmed 98443 004 Problem Overactive bladder N32.81 Active confirmed 2 74549821 Problem Primary osteoarthritis of both knees M17.0 Act patrice confirmed 039900385 Problem Ataxia R27.0 Active confirmed 60579089 Problem Lumbar spondylosis M47.816 Active confirmed 312482082 ALLERGIES No Known Allergies ENCOUNTERS from 1950 to 2020-11-16 Encounter Location Date Provider Diagnosis [facility] [address] [facility] [phone] [place] [address] Nov, Ian Blevins IMMUNIZATIONS Vaccine Route Administration Date Status Influenza [...] Unknown Language: Question Answer Notes Languages spoken: Scottish Islam: Question Answer Notes Islam 06 Tenriism Sexual Hx: Question Answer Notes Had sex [...] - go back to work, out to [employer] other activities orally Daily for 30 day(s) Apr, Active Sertraline HCl 100 MG 2 tablets Orally Once a day for 30 Active Simvastatin 10 MG TAKE ONE TABLET BY MOUTH EVERY EVENING for 30 Active Carpal Tunnel Wrist Deluxe - as directed _ wear overni ght on R hand; G56.03 for 999 days fax to [phone] July, Active Proctosol HC 2.5 % 1 [...] Surgical History colonoscopy-sigmoid redundancy-Mandy 02/2011 Surgical History [id number] 10/05/17 Hospitalization History sepsis, severe-WBC 29K, UCX [...] Name:Fabián Roberts, 2020 1 1:45:00 AM, [address] [facility], , [place], [address], Provider Name:Hunter Meza, 2020-12-26 09:45:00 AM, [address], , [place], [address], Insurance Providers Payer Name Payer Address Payer Phone Insured Name Patient Relati onship to Insured Coverage Start Date Coverage End Date MEDICAID [employer] [address] [place] [address] [phone] FAIZAN TOURE self MEDICARE Part A and B [address] [facility] [address] [phone] FAIZAN TOURE self
--- OUTSIDE RECORDS SUMMARY | 2021-02-14 12:26 | CCD ---
Author Author [facility] Organization [facility] Address Unknown Phone Unavailable Care Team Providers Care Project Planner Name Role Phone Mg, Guadalupe DIE CAST OPERATOR Unavailable Unavailable Mg, Guadalupe DIE CAST OPERATOR Unavailable Unavailable Mg, Guadalupe DIE CAST OPERATOR Unavailable Unavailable Mg, Guadalupe DIE CAST OPERATOR Unavailable Unavailable Mg, Guadalupe DIE CAST OPERATOR Unavailable Unavailable Mg, Guadalupe DIE CAST OPERATOR Unavailable Unavailable Mg, Guadalupe DIE CAST OPERATOR Unavailable Unavailable Mg, Guadalupe DIE CAST OPERATOR Unavailable Unavailable Mg, Guadalupe DIE CAST OPERATOR Unavailable Unavailable Mg, Guadalupe DIE CAST OPERATOR Unavailable Unavailable Mg, Guadalupe DIE CAST OPERATOR Unavailable Unavailable Mg, Guadalupe DIE CAST OPERATOR Unavailable Unavailable Mg, Guadalupe DIE CAST OPERATOR Unavailable Unavailable Pedroza, P Kem Unavailable Unavailable Pedroza, P Kem Unavailable Unavailable Pedroza, P Kem Unavailable Unavailable Pedroza, P Kem Unavailable Unavailable Pedroza, P Kem Unavailable Unavailable Pedroza, P Kem Unavailable Unavailable Pedroza, P Kem Unavailable Unavailable Burt BRISENO MD Unavailable Unavailable Burt BRISENO MD Unavailable Unavailable Burt BRISENO MD Unavailable Unavailable Burt BRISENO MD Unavailable Unavailable Burt BRISENO MD Unavailable Unavailable Burt BRISENO MD Unavailable Unavailable Burt BRISENO MD Unavailable Unavailable Burt BRISENO MD Unavailable Unavailable Burt BRISENO MD Unavailable Unavailable Burt BRISENO MD Unavailable Unavailable Burt BRISENO MD Unavailable Unavailable Burt BRISENO MD Unavailable Unavailable Suze Newman MD Unavailable Unavailable Suze Newman MD Unavailable Unavailable Suze Newman MD Unavailable Unavailable Suze Newman MD Unavailable Unavailable Suze Newman MD Unavailable Unavailable Suze Newman MD Unavailable Unavailable Suze Newman MD Unavailable Unavailable Suze Newman MD Unavailable Unavailable Suze Newman MD Unavailable Unavailable Suze Newman MD Unavailable Unavailable Suze Newman MD Unavailable Unavailable Suze Newman MD Unavailable Unavailable Suze Newman MD Unavailable Unavailable Suze Newman MD Unavailable Unavailable Suze Newman MD Unavailable Unavailable Suze Newman MD Unavailable Unavailable Suze Newman MD Unavailable Unavailable Suze Newman MD Unavailable Unavailable Suze Newman MD Unavailable Unavailable Suze Newman MD Unavailable Unavailable Suze Newman MD Unavailable Unavailable Suze Newman MD Unavailable Unavailable Suze Newman MD Unavailable Unavailable Suze Newman MD Unavailable Unavailable Suze Newman MD Unavailable Unavailable Suze Newman MD Unavailable Unavailable Suze Newman MD Unavailable Unavailable Suze Newman MD Unavailable Unavailable Suze Newman MD Unavailable Unavailable Suze Newman MD Unavailable Unavailable Suze Newman MD Unavailable Unavailable Suze Newman MD Unavailable Unavailable Suze Newman MD Unavailable Unavailable Suze Newman MD Unavailable Unavailable Suze Newman MD Unavailable Unavailable Suze Newman MD Unavailable Unavailable Suze Newman MD Unavailable Unavailable Suze Newman MD Unavailable Unavailable Suze Newman MD Unavailable Unavailable Mary Ellen Cr MD Unavailable Unavailable Mary Ellen Cr MD Unavailable Unavailable Mary Ellen Cr MD Unavailable Unavailable Mary Ellen Cr MD Unavailable Unavailable Mary Ellen Cr MD Unavailable Unavailable Mary Ellen Cr MD Unavailable Unavailable KlMary Ellen noland MD Unavailable Unavailable Mary Ellen Cr MD Unavailable Unavailable Mary Ellen Cr MD Unavailable Unavailable Mary Ellen Cr MD Unavailable Unavailable Mary Ellen Cr MD Unavailable Unavailable Mary Ellen Cr MD Unavailable Unavailable Mary Ellen Cr MD Unavailable Unavailable Mary Ellen Cr MD Unavailable Unavailable KlMary Ellen noland MD Unavailable Unavailable Mary Ellen Cr MD Unavailable Unavailable Mary Ellen Cr MD Unavailable Unavailable KlawittMary Ellen quiros MD Unavailable Unavailable CENTENO, G EDWARD RPA Unavailable Unavailable CENTENO, G EDWARD RPA Unavailable Unavailable CENTENO, G EDWARD RPA Unavailable Unavailable CENTENO, G EDWARD RPA Unavailable Unavailable CENTENO, G EDWARD RPA Unavailable Unavailable CNETENO, G EDWARD RPA Unavailable Unavailable CENTENO, G EDWARD RPA Unavailable Unavailable CENTENO, G EDWARD RPA Unavailable Unavailable CENTENO, G EDWARD RPA Unavailable Unavailable CENTENO, G EDWARD RPA Unavailable Unavailable CENTENO, G EDWARD RPA Unavailable Unavailable CENTENO, G EDWARD RPA Unavailable Unavailable CENTENO, G EDWARD RPA Unavailable Unavailable CENTENO, G EDWARD RPA Unavailable Unavailable CENTENO, G EDWARD RPA Unavailable Unavailable CENTENO, G EDWARD RPA Unavailable Unavailable CENTENO, G EDWARD RPA Unavailable Unavailable CENTENO, G EDWARD RPA Unavailable Unavailable CENTENO, G EDWARD RPA Unavailable Unavailable CENTENO, G EDWARD RPA Unavailable Unavailable CENTENO, G EDWARD RPA Unavailable Unavailable CENTENO, G EDWARD RPA Unavailable Unavailable CENTEON, G EDWARD RPA Unavailable Unavailable CENTENO, G EDWARD RPA Unavailable Unavailable CENTENO, G EDWARD RPA Unavailable Unavailable CENTENO, G EDWARD RPA Unavailable Unavailable CENTENO, G EDWARD RPA Unavailable Unavailable CENTENO, G EDWARD RPA Unavailable Unavailable CENTENO, G EDWARD RPA Unavailable Unavailable CENTENO, G EDWARD RPA Unavailable Unavailable CENTENO, G EDWARD RPA Unavailable Unavailable CENTENO, G EDWARD RPA Unavailable Unavailable CENTENO, G EDWARD RPA Unavailable Unavailable CENTENO, G EDWARD RPA Unavailable Unavailable CENTENO, G EDWARD RPA Unavailable Unavailable CENTENO, G EDWARD RPA Unavailable Unavailable CENTENO, G EDWARD RPA Unavailable Unavailable OUEIDA, ZAHER Unavailable Unavailable OUEIDA, ZAHER Unavailable Unavailable OUEIDA, ZAHER Unavailable Unavailable OUEIDA, ZAHER Unavailable Unavailable OUEIDA, ZAHER Unavailable Unavailable OUEIDA, ZAHER Unavailable Unavailable Alcantara, L America RPA Unavailable Unavailable Alcantara, L America RPA Unavailable Unavailable Alcantara, L America RPA Unavailable Unavailable Alcantara, L America RPA Unavailable Unavailable Alcantara, L America RPA Unavailable Unavailable Alcantara, L America RPA Unavailable Unavailable Alcantara, L America RPA Unavailable Unavailable Alcantara, L America RPA Unavailable Unavailable Alcantara, L America RPA Unavailable Unavailable Alcantara, L America RPA Unavailable Unavailable Alcantara, L America RPA Unavailable Unavailable Alcantara, L America RPA Unavailable Unavailable Alcantara, L America RPA Unavailable Unavailable Alcantara, L America RPA Unavailable Unavailable Alcantara, L America RPA Unavailable Unavailable Alcantara, L America RPA Unavailable Unavailable Alcantara, L America RPA Unavailable Unavailable Alcantara, L America RPA Unavailable Unavailable Alcantara, L America RPA Unavailable Unavailable Alcantara, L America RPA Unavailable Unavailable Alcantara, L America RPA Unavailable Unavailable Alcantara, L America RPA Unavailable Unavailable Alcantara, L America RPA Unavailable Unavailable Alcantara, L America RPA Unavailable Unavailable Alcantara, L America RPA Unavailable Unavailable Alcantara, L America RPA Unavailable Unavailable Alcantara, L America RPA Unavailable Unavailable Alcantara, L America RPA Unavailable Unavailable Alcantara, L America RPA Unavailable Unavailable Alcantara, L America RPA Unavailable Unavailable Alcantara, L America RPA Unavailable Unavailable Alcantara, L America RPA Unavailable Unavailable RING, K NITISH PA Unavailable Unavailable RING, K NITISH PA Unavailable Unavailable RING, K NITISH PA Unavailable Unavailable RING, K NITISH PA Unavailable Unavailable RING, K NITISH PA Unavailable Unavailable RING, K NITISH PA Unavailable Unavailable RING, K NITISH PA Unavailable Unavailable RING, K NITISH PA Unavailable Unavailable RING, K NITISH PA Unavailable Unavailable RING, K NITISH PA Unavailable Unavailable RING, K NITISH PA Unavailable Unavailable RING, K NITISH PA Unavailable Unavailable RING, K NITISH PA Unavailable Unavailable RING, K NITISH PA Unavailable Unavailable RING, K NITISH PA Unavailable Unavailable RING, K NITISH PA Unavailable Unavailable RING, K NITISH PA Unavailable Unavailable RING, K NITISH PA Unavailable Unavailable RING, K NITISH PA Unavailable Unavailable RING, K NITISH PA Unavailable Unavailable RING, K NITISH PA Unavailable Unavailable RING, K NITISH PA Unavailable Unavailable QIAN III, J CHELSIE Unavailable Unavailable QIAN III, J CHELSIE Unavailable Unavailable QIAN III, J CHELSIE Unavailable Unavailable QIAN III, J CHELSIE Unavailable Unavailable QIAN III, J CHELSIE Unavailable Unavailable QIAN III, J CHELSIE Unavailable Unavailable Re-disclosure Warning The records that you are about to access may contain information from federally-assisted alcohol or drug abuse programs. If such information is present, then the following federally mandated warning applies: This information has been disclosed to you from records protected by federal confidentiality rules (42 CFR part 2). The federal rules prohibit you from making any further disclosure of this information unless further disclosure is expressly permitted by the written consent of the person to whom it pertains or as otherwise permitted by 42 CFR part 2. A general authorization for the release of medical or other information is NOT sufficient for this purpose. The Federal rules restrict any use of the information to criminally investigate or prosecute any alcohol or drug abuse patient.The records that you are about to access may contain highly sensitive health information, the redisclosure of which is protected by Article 27-F of the [facility] Public Health law. If you continue you may have access to information: Regarding HIV / AIDS; Provided by facilities licensed or operated by the [facility] Office of Mental Health; or Provided by the [facility] Office for People With Developmental Disabilities. If such information is present, then the following [facility] mandated warning applies: This information has been disclosed to you from confidential records which are protected by state law. State law prohibits you from making any further disclosure of this information without the specific written consent of the person to whom it pertains, or as otherwise permitted by law. Any unauthorized further disclosure in violation of state law may result in a fine or assisted sentence or both. A general authorization for the release of medical or other information is NOT sufficient authorization for further disc losure. Allergies and Adverse Reactions Type Description Substance Reaction Status Data Source(s ) Propensity to adverse reactions NO KNOWN ALLERGIES NO KNOWN ALLERGIES [facility] Family History Family Member Name Family Member Gender Family Member Status Date o f Status Description Data Source(s) Unknown Male Problem MEDENT ([facility]) Unknown Unknown Problem MEDENT ([facility]) Unknown Male Problem MEDENT ([facility] () Encounters Encounter Providers Location Date Indications Data Source(s ) [place] [address] [facility] [address] 01/29/2021 12:00:00 AM EST eCW1 (Counts include 234 beds at the [facility]) Outpatient Attender: America Rivas/Dena/Frank/Anabell dixon 01/07/2021 09:15:00 AM EDT MED[facility] ([facility]) [place] [address] [facility] [address] 01/04/2021 12:00:00 AM EDT eCW1 (Counts include 234 beds at the [facility]) [place] [address] [facility] [address] 12/26/2020 12:00:00 AM EDT eCW1 (Counts include 234 beds at the [facility]) Unknown [address] [facility] [address] 12/26/2020 12:00:00 AM EDT eCW1 (Counts include 234 beds at the [facility]) Unknown [address] [facility] [address] 11/22/2020 12:00:00 AM EDT eCW1 (Counts include 234 beds at the [facility]) Unknown [address] [facility] [address] 11/16/2020 12:00:00 AM EDT eCW1 (Counts include 234 beds at the [facility]) [place] [address] [facility] [address] 11/12/2020 12:00:00 AM EDT eCW1 (Counts include 234 beds at the [facility]) Outpatient Attender: JASON CENTENO RPA 11/07 08:33:06 PM EDT - 11/07/2020 11:12:09 PM EDT [facility] ([facility] ) [place] [address] [facility] [place] [address] 11/06/2020 12:00:00 AM EDT eCW1 (Counts include 234 beds at the [facility]) Unknown [address] [facility] [place] [address] 11/06/2020 12:00:00 AM EDT eCW1 (Counts include 234 beds at the [facility]) Outpatient Attender: Guadalupe Liu [facility] 10/06/2020 11:15:00 AM EDT MEDENT ([facility]) Outpatient Attender: NITISH Watts Primary 10/03/2020 09:00:00 AM EDT MEDENT ([facility]) [place] [address] [facility] [place] [address] 09/03/2020 12:00:00 AM EDT eCW1 ([facility]) [place] [address] [facility] [place] [address] 08/29/2020 12:00:00 AM EDT eCW1 ([facility]) [place] [address] [facility] [address] 08/17/2020 12:00:00 AM EDT eCW1 ([facility]) Unknown [address] [facility] [place] [address] 07/30/2020 12:00:00 AM EDT eCW1 ([facility]) Unknown [address] [facility] [address] 07/25/2020 12:00:00 AM EDT eCW1 ([facility]) Outpatient [address] [facility] [place] [address] 07/24/2020 12:00:00 AM EDT eCW1 ([facility]) Unknown [address] [facility] [place] [address] 07/12/2020 12:00:00 AM EDT eCW1 ([facility]) Outpatient Attender: Romaine Newman MD [id number] 2020 12:00:00 AM EDT - 07/13/2020 09:18:21 AM EDT Wedge compression fracture of t9-t10 whitney tebra, initial encounter for closed fracture [facility] Wedge compression fracture of t9-t10 whitney tebra, initial encounter for closed fracture Outpatient Referrer: Romaine Newman MD 07/03/2020 12:0 0:00 AM EDT Wedge compression fracture of t9-t10 vertebra, subsequent encounter for fracture with routine healing [facility] Wedge compression fracture of t9-t10 whitney tebra, subsequent encounter for fracture with routine healing Unknown [address] [facility] [address] 06/28/2020 12:00:00 AM EDT eCW1 (Counts include 234 beds at the [facility]) Unknown [address] [facility] [address] 06/27/2020 12:00:00 AM EDT eCW1 (Counts include 234 beds at the [facility]) Unknown [address] [facility] [place] [address] 06/25/2020 12:00:00 AM EDT eCW1 (Counts include 234 beds at the [facility]) Office Visit, Est Pt., Level 3 PC [address] [place] [address] 06/22/2020 12:00:00 AM EDT eCW1 ([facility]) Unknown [address] [facility] [place] [address] 06/21/2020 12:00:00 AM EDT eCW1 (Counts include 234 beds at the [facility]) Unknown [address] [facility] Y [address] 06/18/2020 12:00:00 AM EDT eCW1 (Counts include 234 beds at the [facility]) Outpatient Attender: NITISH Taveras 06/14/2020 08:40:00 AM EDT MEDENT ([facility]) Inpatient Attender: CAROLYNN Barnes er: RITCHIE BRISENO MDAttender: Chirag Cr MDAttender: CHELSIE LAUGHLIN IIIAttender: Kem PedrozaAdmitter: RITCHIE BRISENO MDReferrer: RITCHIE BRISENO MDConsultant: CAROLYNN MCKEON [id number] 06/14/2020 12:00:00 AM EDT - 06/18/2020 05:07:00 PM ED T Unspecified fracture of unspecified thoracic vertebra, sequela [facility] Unspecified fracture of unspecified thor acic vertebra, sequela Patient discharged. Office Visit, Est Pt., Level 3 PC [address] [place] [address] 05/08/2020 12:00:00 AM EST eCW1 ([facility]) Unknown [address] [facility] [address] 05/08/2020 12:00:00 AM EST eCW1 ([facility]) Unknown [address] [facility] [address] 04/26/2020 12:00:00 AM EST eCW1 ([facility]) Unknown [address] [facility] [address] 04/26/2020 12:00:00 AM EST eCW1 ([facility]) Unknown [address] [facility] [place] [address] 04/03/2020 12:00:00 AM EST eCW1 ([facility]) Outpatient [address] [facility] [address] 03/27/2020 12:00:00 AM EST eCW1 ([facility]) Unknown [address] [facility] [address] 03/22/2020 12:00:00 AM EST eCW1 ([facility]) Unknown [address] [facility] [address] 03/20/2020 12:00:00 AM EST eCW1 ([facility]) Unknown [address] [facility] [address] 03/13/2020 12:00:00 AM EST eCW1 ([facility]) Unknown [address] [facility] [place] [address] 03/01/2020 12:00:00 AM EST eCW1 ([facility]) Unknown [address] [facility] [place] [address] 02/29/2020 12:00:00 AM EST eCW1 ([facility]) Unknown [address] [facility] [place] [address] 02/29/2020 12:00:00 AM EST eCW1 (Counts include 234 beds at the [facility]) Unknown [address] [facility] [place] [address] 02/29/2020 12:00:00 AM EST eCW1 (Counts include 234 beds at the [facility]) Unknown [address] [facility] [address] 01/31/2020 12:00:00 AM EST eCW1 (Counts include 234 beds at the [facility]) Outpatient [address] [facility] [address] 12/27/2019 12:00:00 AM EDT eCW1 (Counts include 234 beds at the [facility]) Unknown [address] [facility] [address] 12/21/2019 12:00:00 AM EDT eCW1 (Counts include 234 beds at the [facility]) Unknown [address] [facility] [place] [address] 12/19/2019 12:00:00 AM EDT eCW1 (Counts include 234 beds at the [facility]) Immunizations Vaccine Date Status Description Data Source(s) COVID-19 VACCINE Moderna 02/06/2021 12:00:00 AM EST completed [place] Vaccine Series Complete: YESThis Data wa s Submitted to [facility] Via [employer] COVID-19 VACCINE Moderna 04/18/2020 12:00:00 AM EST completed [place] Vaccine Series Complete: YESThis Data wa s Submitted to [facility] [employer] COVID-19 VACCINE Moderna 03/21/2020 12:00:00 AM EST completed [place] Vaccine Series Complete: NOThis Data was Submitted to [facility] Via [employer] Medications Medication Brand Name Start Date Product Form Dose Route Admi nistrative Instructions Pharmacy Instructions Status Indications Reaction Description Data Source(s) Cyanocobalamin 500 MCG UNK 01/29/2021 12:00:00 AM EST 1.0 {t ablet} active Cyanocobalamin 500 MCG eCW1 ([facility]) Carpal Tunnel Wrist Deluxe - Carpal Tunnel Wrist Deluxe - 12:00:00 AM EDT active Carpal Tunnel Wri st Deluxe - eCW1 ([facility]) Carpal Tunnel Wrist Deluxe - Carpal Tunnel Wrist Deluxe - 12:00:00 AM EDT active Carpal Tunnel Wri st Deluxe - eCW1 ([facility]) Carpal Tunnel Wrist Deluxe - Carpal Tunnel Wrist Deluxe - 12:00:00 AM EDT active Carpal Tunnel Wri st Deluxe - eCW1 ([facility]) Carpal Tunnel Wrist Deluxe - Carpal Tunnel Wrist Deluxe - 12:00:00 AM EDT active Carpal Tunnel Wri st Deluxe - eCW1 ([facility]) Carpal Tunnel Wrist Deluxe - Carpal Tunnel Wrist Deluxe - 12:00:00 AM EDT active Carpal Tunnel Wri st Deluxe - eCW1 ([facility]) Carpal Tunnel Wrist Deluxe - Carpal Tunnel Wrist Deluxe - 12:00:00 AM EDT active Carpal Tunnel Wri st Deluxe - eCW1 ([facility]) Carpal Tunnel Wrist Deluxe - Carpal Tunnel Wrist Deluxe - 12:00:00 AM EDT active Carpal Tunnel Wri st Deluxe - eCW1 ([facility]) Carpal Tunnel Wrist Deluxe - Carpal Tunnel Wrist Deluxe - 12:00:00 AM EDT active Carpal Tunnel Wri st Deluxe - eCW1 ([facility]) Carpal Tunnel Wrist Deluxe - Carpal Tunnel Wrist Deluxe - 12:00:00 AM EDT active Carpal Tunnel Wri st Deluxe - eCW1 ([facility]) Carpal Tunnel Wrist Deluxe - Carpal Tunnel Wrist Deluxe - 12:00:00 AM EDT active Carpal Tunnel Wri st Deluxe - eCW1 ([facility]) Carpal Tunnel Wrist Deluxe - Carpal Tunnel Wrist Deluxe - 12:00:00 AM EDT active Carpal Tunnel Wri st Deluxe - eCW1 ([facility]) Carpal Tunnel Wrist Deluxe - Carpal Tunnel Wrist Deluxe - 12:00:00 AM EDT active Carpal Tunnel Wri st Deluxe - eCW1 ([facility]) Carpal Tunnel Wrist Deluxe - Carpal Tunnel Wrist Deluxe - 12:00:00 AM EDT active Carpal Tunnel Wri st Deluxe - eCW1 ([facility]) Carpal Tunnel Wrist Deluxe - Carpal Tunnel Wrist Deluxe - 12:00:00 AM EDT active Carpal Tunnel Wri st Deluxe - eCW1 ([facility]) Carpal Tunnel Wrist Deluxe - Carpal Tunnel Wrist Deluxe - 12:00:00 AM EDT active Carpal Tunnel Wri st Deluxe - eCW1 ([facility]) Proctosol HC 2.5 % UNK 07/12/2020 12:00:00 AM EDT 1.0 {appli cation} active Proctosol HC 2.5 % eCW1 ([facility]) Proctosol HC 2.5 % UNK 07/12/2020 12:00:00 AM EDT 1.0 {appli cation} active Proctosol HC 2.5 % eCW1 ([facility]) Proctosol HC 2.5 % UNK 07/12/2020 12:00:00 AM EDT 1.0 {appli cation} active Proctosol HC 2.5 % eCW1 ([facility]) Proctosol HC 2.5 % UNK 07/12/2020 12:00:00 AM EDT 1.0 {appli cation} active Proctosol HC 2.5 % eCW1 ([facility]) Proctosol HC 2.5 % UNK 07/12/2020 12:00:00 AM EDT 1.0 {appli cation} active Proctosol HC 2.5 % eCW1 ([facility]) Proctosol HC 2.5 % UNK 07/12/2020 12:00:00 AM EDT 1.0 {appli cation} active Proctosol HC 2.5 % eCW1 ([facility]) Proctosol HC 2.5 % K 07/12/2020 12:00:00 AM EDT 1.0 {appli cation} active Proctosol HC 2.5 % eCW1 ([facility]) Proctosol HC 2.5 % K 07/12/2020 12:00:00 AM EDT 1.0 {appli cation} active Proctosol HC 2.5 % eCW1 ([facility]) Proctosol HC 2.5 % [facility] 07/12/2020 12:00:00 AM EDT 1.0 {appli cation} active Proctosol HC 2.5 % eCW1 ([facility]) Proctosol HC 2.5 % [facility] 07/12/2020 12:00:00 AM EDT 1.0 {appli cation} suspended Proctosol HC 2.5 % eCW1 ([facility]) Proctosol HC 2.5 % [facility] 07/12/2020 12:00:00 AM EDT 1.0 {appli cation} active Proctosol HC 2.5 % eCW1 ([facility]) Proctosol HC 2.5 % K 07/12/2020 12:00:00 AM EDT 1.0 {appli cation} suspended Proctosol HC 2.5 % eCW1 ([facility]) Proctosol HC 2.5 % [facility] 07/12/2020 12:00:00 AM EDT 1.0 {appli cation} active Proctosol HC 2.5 % eCW1 ([facility]) Proctosol HC 2.5 % [facility] 07/12/2020 12:00:00 AM EDT 1.0 {appli cation} active Proctosol HC 2.5 % eCW1 ([facility]) Proctosol HC 2.5 % [facility] 07/12/2020 12:00:00 AM EDT 1.0 {appli cation} active Proctosol HC 2.5 % eCW1 ([facility]) Proctosol HC 2.5 % UNK 07/12/2020 12:00:00 AM EDT 1.0 {appli cation} active Proctosol HC 2.5 % [facility] [facility]) May Have - UNK 06/25/2020 12:00:00 AM EDT active May Have - eCW1 ([facility]) May Have - UNK 06/25/2020 12:00:00 AM EDT active May Have - eCW1 ([facility]) May Have - UNK 06/25/2020 12:00:00 AM EDT active May Have - eCW1 ([facility]) May Have - UNK 06/25/2020 12:00:00 AM EDT active May Have - eCW1 ([facility]) May Have - UNK 06/25/2020 12:00:00 AM EDT active May Have - eCW1 ([facility]) Tamsulosin hydrochloride 0.4 MG Oral Cap shelbi Tamsulosin HCl 0.4 MG Oral Capsule (FLOMAX) Tamsulosin HCl 0.4 MG Oral Capsule (FLOMAX) 06/19/2020 12:00 :00 AM EDT 0.8 mg Oral aborted Take 2 capsules by mouth daily [facility] Sertraline 100 MG Oral Tablet Sertraline HCl 100 MG Or al Tablet (ZOLOFT) Sertraline HCl 100 MG Oral Tablet (ZOLOFT) 06/19/2020 12:00:00 AM EDT 200 mg Oral aborted Take 2 tablets by mo uth daily [facility] Tamsulosin hydrochloride 0.4 MG Oral Cap shelbi Tamsulosin HCl 0.4 MG Oral Capsule (FLOMAX) Tamsulosin HCl 0.4 MG Oral Capsule (FLOMAX) 06/19/2020 12:00 :00 AM EDT 0.4 mg Oral active Take 1 capsule b y mouth daily [facility] Sertraline 100 MG Oral Tablet Sertraline HCl 100 MG Or al Tablet (ZOLOFT) Sertraline HCl 100 MG Oral Tablet (ZOLOFT) 06/19/2020 12:00:00 AM EDT 100 mg Oral active Take 1 tablet by kamilah th daily [facility] POLYETHYLENE GLYCOL 3350 142 MG/ML Oral Solution polyethylene glycol (MIRALAX) packet 17 g polyethylene glycol (MIRALAX) packet 17 g 06/18/2020 0 9:00:00 PM EDT 17 g Oral active 17 g, Or al, 2 Times Daily, First dose (after last modification) on Thu06/18/20 at 2100, For 3 days
Mix in 8 ounces of water, juice or milk. Avoid use in patients who require thickened liquids due to p otential increased risk for aspiration.
[facility] Medication administered onsite Bisacodyl 10 MG Rectal Suppository bisacodyl (DULCOLAX ) suppository 10 mg bisacodyl (DULCOLAX) suppository 10 mg 06/18/2020 10:45:00 AM EDT 10 mg Rectal completed 10 mg, Rectal, Once, Thu06/18/20 at 1045, For 1 dose [facility] Medication administered onsite Cholecalciferol 2000 UNT Oral Tablet Vitamin D 50 MCG (1999 UT) Oral Tablet Vitamin D 50 MCG (1999 UT) Oral Tablet 06/18/2020 12:00:00 AM EDT 2 000 U Oral aborted Take 2,000 Units by mouth daily [facility] Oxybutynin chloride 5 MG Oral Tablet Oxy butynin Chloride 5 MG Oral Tablet (DITROPAN) Oxybutynin Chloride 5 MG Oral Tablet (DITROPAN) 2020 12:00:00 AM EDT 5 mg Oral aborted Take 1 tablet by mouth daily [facility] Acetaminophen 325 MG Oral Tablet Acetaminophen 325 MG Oral T ablet 06/18/2020 12:00:00 AM EDT 975 mg Oral aborted Take 3 tablets by mouth Three times daily for 10 days [facility] Oxycodone Hydrochloride 5 MG Oral Tablet oxyCODONE HCl 5 MG Oral Tablet (ROXICODONE) oxyCODONE HCl 5 MG Oral Tablet (ROXICODONE) 06/18/2020 12:00:00 AM EDT 5 mg Oral aborted Take 1 t ablet by mouth every 4 (four) hours as needed for up to 3 days, Max Daily Dose: 30 mg [facility] buspirone hydrochloride 10 MG Oral Table t busPIRone HCl 10 MG Oral Tablet (BUSPAR) busPIRone HCl 10 MG Oral Tablet (BUSPAR) 06/18/2020 12:00:00 AM EDT 20 mg Oral aborted Take 2 tablets by mouth Two Times Daily [facility] Acetaminophen 325 MG Oral Tablet Acetaminophen 325 MG Oral T ablet 06/18/2020 12:00:00 AM EDT 975 mg Oral active Take 3 tablets by mouth Three times daily for 10 days [facility] Cholecalciferol 2000 UNT Oral Tablet Vitamin D 50 MCG (1999 UT) Oral Tablet Vitamin D 50 MCG (1999 UT) Oral Tablet 06/18/2020 12:00:00 AM EDT 2 000 U Oral active Take 2,000 Units by mouth daily [facility] Methocarbamol 500 MG Oral Tablet Methocarbamol 500 MG Oral Tablet (ROBAXIN) Methocarbamol 500 MG Oral Tablet (ROBAXIN) 06/18/2020 12:00:00 AM EDT 500 mg Oral active Take 1 tablet by kamilah th Three times daily for 10 days [facility] Oxycodone Hydrochloride 5 MG Oral Tablet oxyCODONE HCl 5 MG Oral Tablet (ROXICODONE) oxyCODONE HCl 5 MG Oral Tablet (ROXICODONE) 06/18/2020 12:00:00 AM EDT 5 mg Oral active Take 1 t ablet by mouth every 6 (six) hours as needed for Pain for up to 3 days, Max Daily Dose: 20 mg [facility] Acetaminophen 325 MG Oral Tablet Acetaminophen 325 MG Oral T ablet 06/18/2020 12:00:00 AM EDT 975 mg Oral aborted Take 3 tablets by mouth Three times daily for 10 days [facility] Oxycodone Hydrochloride 5 MG Oral Tablet oxyCODONE HCl 5 MG Oral Tablet (ROXICODONE) oxyCODONE HCl 5 MG Oral Tablet (ROXICODONE) 06/18/2020 12:00:00 AM EDT 5 mg Oral aborted Take 1 t ablet by mouth every 6 (six) hours as needed for up to 3 days, Max Daily Dose: 20 mg [facility] Cholecalciferol 2000 UNT Oral Tablet Vitamin D 50 MCG (1999 UT) Oral Tablet Vitamin D 50 MCG (1999 UT) Oral Tablet 06/18/2020 12:00:00 AM EDT 2 000 U Oral aborted Take 2,000 Units by mouth daily [facility] Acetaminophen 325 MG Oral Tablet Acetaminophen 325 MG Oral T ablet 06/18/2020 12:00:00 AM EDT 975 mg Oral aborted Take 3 tablets by mouth Three times daily for 10 days [facility] Methocarbamol 500 MG Oral Tablet Methocarbamol 500 MG Oral Tablet (ROBAXIN) Methocarbamol 500 MG Oral Tablet (ROBAXIN) 06/18/2020 12:00:00 AM EDT 500 mg Oral aborted Take 1 tablet by kamilah th Three times daily for 10 days [facility] buspirone hydrochloride 10 MG Oral Table t busPIRone HCl 10 MG Oral Tablet (BUSPAR) busPIRone HCl 10 MG Oral Tablet (BUSPAR) 06/18/2020 12:00:00 AM EDT 10 mg Oral active Take 1 tablet by mouth T hree times daily [facility] Methocarbamol 500 MG Oral Tablet Methocarbamol 500 MG Oral Tablet (ROBAXIN) Methocarbamol 500 MG Oral Tablet (ROBAXIN) 06/18/2020 12:00:00 AM EDT 500 mg Oral aborted Take 1 tablet by kamilah Three times daily for 10 days [facility] Methocarbamol 500 MG Oral Tablet methocarbamol (ROBAXI N) tablet 500 mg methocarbamol (ROBAXIN) tablet 500 mg 06/17/2020 10:00:00 AM EDT 50 0 mg Oral active 500 mg, Oral, T hree Times Daily Standard, First dose on 06/17/20 at 1000, For 30 days [facility] Medication administered onsite 1 ML Ketorolac Tromethamine 15 MG/ML Car tridge ketorolac (TORADOL) 15 MG/ML injection 15 mg ketorolac (TORADOL) 15 MG/ML injection 15 mg 09:30:00 AM EDT 15 mg Intravenous completed 15 mg, Intravenous, Every 6 hours, First dose on 06/16/20 at 0930, For 2 days [facility] Medication administered onsite Oxybutynin chloride 5 MG Oral Tablet oxybutynin (DITRO GILL) tablet 5 mg oxybutynin (DITROPAN) tablet 5 mg 06/16/2020 09:00:00 AM EDT 5 mg Oral active 5 mg, Oral, Daily S tandard, First dose on 06/16/20 at 0900, For 30 days [facility] Medication administered onsite Tamsulosin hydrochloride 0.4 MG Oral Capsule tamsulosi n (FLOMAX) capsule 0.8 mg tamsulosin (FLOMAX) capsule 0.8 mg 06/16/2020 09:00:00 AM EDT 0.8 mg Oral active 0.8 mg, Oral, Daily Standard, First dose on 06/16/20 at 0900, For 30 days
Swallow whole. Do not crush, chew or open.
[facility] Medication administered onsite Aspirin 81 MG Delayed Release Oral Tablet aspirin EC E C tablet 81 mg aspirin EC EC tablet 81 mg 06/16/2020 09:00:00 AM EDT 81 mg Oral ac tive 81 mg, Oral, Daily Standard, First dose on 06/16/20 at 0900, For 30 doses [facility] Medication administered onsite Finasteride 5 MG Oral Tablet finasteride (PROSCAR) tab let 5 mg finasteride (PROSCAR) tablet 5 mg 06/16/2020 09:00:00 AM EDT 5 mg Oral active 5 mg, Oral, Daily Standard, First dose on 06/16/20 at 0900, For 30 days [facility] Medication administered onsite 0.4 ML Enoxaparin sodium 100 MG/ML Prefi lled Syringe enoxaparin sodium (LOVENOX) injection 40 mg enoxaparin sodium (LOVENOX) injection 40 mg 06/16/2020 09:00:00 AM EDT 40 mg Subcutaneous active 40 mg, Subcutaneous, Daily Standard, First dose on 06/16/20 at 0900, For 30 days [facility] Medication administered onsite POLYETHYLENE GLYCOL 3350 142 MG/ML Oral Solution polyethylene glycol (MIRALAX) packet 17 g polyethylene glycol (MIRALAX) packet 17 g 06/16/2020 0 9:00:00 AM EDT 17 g Oral aborted 17 g, Or al, Daily Standard, First dose on 06/16/20 at 0900, For 30 days
Mix in 8 ounces of water, juice or milk. Avoid use in patients who require thickened liquids due to potential increased risk for aspiration.
[facility] Medication administered onsite Simvastatin 10 MG Oral Tablet simvastatin (ZOCOR) tabl et 10 mg simvastatin (ZOCOR) tablet 10 mg 06/15/2020 10:00:00 PM EDT 10 mg Oral active 10 mg, Oral, Nightly, First dose on Thu06/15/20 at 2200, For 30 days [facility] Medication administered onsite sennosides, [facility] 8.6 MG Oral Tablet senna tablet 2 tablet sen na tablet 2 tablet 06/15/2020 10:00:00 PM EDT 2 {tbl} Oral active 2 tablet, Oral, Nightly, First dose on Thu06/15/20 at 2200, For 30 days [facility] Medication administered onsite Docusate Sodium 100 MG Oral Capsule docusate sodium (C OLACE) capsule 100 mg docusate sodium (COLACE) capsule 100 mg 06/15/2020 09:00:00 PM EDT 100 mg Oral active 100 mg, Oral, 2 Times Daily, First dose on Thu06/15/20 at 2100, For 30 days [facility] Medication administered onsite Acetaminophen 325 MG Oral Tablet acetaminophen (TYLENO L) tablet 975 mg acetaminophen (TYLENOL) tablet 975 mg 06/15/2020 02:00:00 PM EDT 97 5 mg Oral active 975 mg, Oral, T hree Times Daily, First dose on Thu06/15/20 at 1400, For 30 days
Maximum daily dose of acetaminophen is 3,000 mg from all sources in 24 hours.
[facility] Medication administered onsite Sertraline 100 MG Oral Tablet sertraline (ZOLOFT) tabl et 200 mg sertraline (ZOLOFT) tablet 200 mg 06/15/2020 11:00:00 AM EDT 200 mg Oral active 200 mg, Oral, Daily Standard, First dose on Thu06/15/20 at 1100, For 30 days [facility] Medication administered onsite buspirone hydrochloride 10 MG Oral Tablet busPIRone (B USPAR) tablet 20 mg busPIRone (BUSPAR) tablet 20 mg 06/15/2020 11:00:00 AM EDT 20 mg O ral active 20 mg, Oral, 2 Times Daily, First dose on Thu06/15/20 at 1100, For 30 days [facility] Medication administered onsite Oxycodone Hydrochloride 5 MG Oral Tablet oxyCODONE (ROXICODONE) immediate release tablet 5 mg oxyCODONE (ROXICODONE) immediate release tablet 5 mg 06/15/2020 10:58:15 AM EDT 5 mg Oral completed 5 mg, Oral, Every 4 hours PRN, Moderate Pain (Pain Scale Score 4-6), Starting Thu06/15/20 at 1058, For 3 days
Oxycodone immediate release is limited to 10 mg per dose. Higher doses ( only) require Pain Service consultation and approval.
[facility] Medication administered onsite Acetaminophen 10 MG/ML Injectable Soluti on acetaminophen ([facility]) infusion 1,000 mg acetaminophen ([facility]) infusion 1,000 mg 06/15/2020 09:30:00 AM EDT 1000 mg Intravenous completed 1,000 mg , Intravenous, Administer over 15 Minutes, Once, Thu06/15/20 at 0930, For 1 dose
Maximum daily dose of acetaminophen from all sources 3,000 mg daily.
[facility] Medication administered onsite fentaNYL (SUBLIMAZE) (PF) injection 50 mcg [id number] 06/15/2020 03:30:00 AM EDT 50 ug Intravenous completed 50 mcg, Intravenous, Once, Thu06/15/20 at 0330, For 1 dose [facility] Medication administered onsite fentaNYL (SUBLIMAZE) (PF) injection 50 mcg [id number] 06/15/2020 01:30:00 AM EDT 50 ug Intravenous completed 50 mcg, Intravenous, Once, Thu06/15/20 at 0130, For 1 dose [facility] Medication administered onsite fentaNYL (SUBLIMAZE) 100 MCG/2ML (PF) injection [id number] 06/15/2020 01:28:08 AM EDT completed Starti ng Thu06/15/20 at 0128, For 1 dose
Johnathan Tinajero: cabinet override
[facility] Medication administered onsite [facility] Devices (DURABLE MEDICAL EQUIPMENT SEE SIG) [place] [facility] [place] [id number] 06/15/2020 12:00:00 AM EDT active Use as directed. [facility] morphine sulfate (PF) injection 4 mg [id number] 06/14/2020 07:45: 00 PM EDT 4 mg Intravenous completed 4 mg, In travenous, Once, [facility] 06/14/20 at 1945, For 1 [facility] Medication administered onsite May Have - UNK 04/03/2020 12:00:00 AM EST active May Have - eCW1 ([facility]) May Have - UNK 04/03/2020 12:00:00 AM EST active May Have - eCW1 ([facility]) May Have - UNK 04/03/2020 12:00:00 AM EST active May Have - eCW1 ([facility]) May Have - UNK 04/03/2020 12:00:00 AM EST active May Have - eCW1 ([facility]) May Have - UNK 04/03/2020 12:00:00 AM EST active May Have - eCW1 ([facility]) May Have - UNK 04/03/2020 12:00:00 AM EST active May Have - eCW1 ([facility]) May Have - UNK 04/03/2020 12:00:00 AM EST active May Have - eCW1 ([facility]) May Have - UNK 04/03/2020 12:00:00 AM EST active May Have - eCW1 ([facility]) May Have - UNK 04/03/2020 12:00:00 AM EST active May Have - eCW1 ([facility]) May Have - UNK 04/03/2020 12:00:00 AM EST active May Have - eCW1 ([facility]) May Have - UNK 04/03/2020 12:00:00 AM EST active May Have - eCW1 ([facility]) May Have - UNK 04/03/2020 12:00:00 AM EST active May Have - eCW1 ([facility]) May Have - UNK 04/03/2020 12:00:00 AM EST active May Have - eCW1 ([facility]) May Have - UNK 04/03/2020 12:00:00 AM EST active May Have - eCW1 ([facility]) May Have - UNK 04/03/2020 12:00:00 AM EST active May Have - eCW1 ([facility]) buspirone hydrochloride 10 MG Oral Table t busPIRone HCl 10 MG Oral Tablet (BUSPAR) busPIRone HCl 10 MG Oral Tablet (BUSPAR) 10 mg Oral aborted Take 10 mg by mouth Three times daily [facility] Sertraline 100 MG Oral Tablet Sertraline HCl 100 MG Or al Tablet (ZOLOFT) Sertraline HCl 100 MG Oral Tablet (ZOLOFT) 100 mg Oral aborted Take 100 mg by mouth daily [facility] Tamsulosin hydrochloride 0.4 MG Oral Cap shelbi Tamsulosin HCl 0.4 MG Oral Capsule (FLOMAX) Tamsulosin HCl 0.4 MG Oral Capsule (FLOMAX) 0.4 mg Ora l aborted Take 0.4 mg by mouth daily [facility] Insurance Providers Payer name Policy type / Coverage type Policy ID Covered constitution party ID Covered constitution party's relationship to mitchell Policy Mitchell Plan Information [id number] A MEDICARE A [id number] Self [id number] MEDICARE [id number] SP [id number] A Medicare Natl Gov't Servi Medicare Primary [id number] Self [id number] Medicare Natl Gov't Servi Medicare Primary [id number] Self MEDICAID [id number] SP [id number] MEDICAID [id number] SP [id number] [place] Primary [id number] Self [id number] [place] Primary [id number] Self [id number] [place] Primary [id number] Self [id number] [place] Primary [id number] Self [id number] Medicare [place] Medicare Primary [id number] Self [id number] Medicare [place] Medicare Primary [id number] Self [id number] [place] Primary [id number] Self [id number] MEDICAID M [id number] Self [id number] [place] Part B [id number] Self [id number] ANSI-Medicaid [id number] ANS-Medicare Part B [id number] ANS-Medicare Part B [id number] ANS-Medicaid [id number] ANSI-Medicaid [id number] ANSMedicare Part B [id number] Medicaid [place] Med[place] Part [place] [id number] Self [id number] [facility] [place] [facility] [id number] Self [id number] [place] [facility] Part B [id number] Self [id number] [place] [facility] Part [place] [id number] Self [id number] [place] [facility] Part [place] [id number] Self [id number] ANSI-Medicaid [id number] ANSI-Medicare Part B [id number] ANSI-Medicaid [id number] ANSI-Medicare Part B [id number] ANSI-Medicare Part B [id number] ANSI-Medicaid [id number] ANSI-Medicaid [id number] ANSI-Medicare Part B [id number] ANSI-Medicaid [id number] ANSI-Medicare Part B [id number] ANSI-Medicare Part B [id number] ANSI-Medicaid [id number] ANSI-Medicare Part B [id number] ANSI-Medicaid [id number] ANSI-Medicare Part B [id number] ANSI-Medicaid [id number] MEDICARE [id number] ANSI-Medicaid [id number] ANSI-Medicare Part B [id number] ANSI-Medicaid [id number] ANSI-Medicare Part B [id number] ANSI-Medicare Part B [id number] ANSI-Medicaid [id number] ANSI-Medicaid [id number] ANSI-Medicare Part B [id number] ANSI-Medicaid [id number] ANSI-Medicare Part B [id number] ANSI-Medicaid [id number] ANS-Medicare Part B [id number] Medicaid [facility] Part B [id number] Self [id number] ANSI-Medicare Part B [id number] ANSI-Medicaid [id number] Medicaid [facility] Part B [id number] [id number] Self [id number] Medicare - [place] Medicare Primary [id number] Self [id number] ANS-Medicare Part B [id number] [facility] MEDICAID [id number] SP [id number] R MEDICARE C [id number] S [id number] A Medicaid [facility] Part B [id number] [id number] Self [id number] Medicare - [place] Medicare Primary [id number] Self [id number] [place] [id number] Self ANSI-Medicaid [id number] MEDICARE [id number] SP [id number] EMEDNY [id number] SP [id number] MEDICARE C [id number] S [id number] MEDICAID M [id number] S [id number] MEDICAID [id number] SP [id number] ANSI-Medicaid [id number] ANSI-Medicare Part B [id number] [place] [facility] Part B [id number] Self [id number] Medicare - [place] Medicare Primary [id number] Self [id number] [facility] [place] [facility] [id number] Self [id number] ANSI-Medicare Part B [id number] ANSI-Medicaid [id number] ANSI-Medicaid [id number] ANSI-Medicare Part B [id number] [facility]-Medicare Part B [id number] [facility]-Medicaid [id number] Problems, Conditions, and Diagnoses Code Display Name Description Problem Type Effective Dates Data Source(s) S22.070A Wedge compression fracture o f T9-T10 vertebra, initial encounter for closed fracture Wedge compression fracture of t9-t10 [place] tebra, initial encounter for closed fracture Diagnosis 06/15/2020 04:34:27 PM [facility] S22.070D Wedge compression fracture o f T9-T10 vertebra, subsequent encounter for fracture with routine healing Wedge compression fracture of t9-t10 [place] tebra, subsequent encounter for fracture with routine healing Diagnosis 06/15/2020 04:34:27 PM [facility] S22.009S Unspecified fracture of unspecified thor acic vertebra, sequela Unspecified fracture of unspecified thoracic vertebra, sequela Diagnosis 06/15/2020 04:34:27 PM [facility] Y92.[address] in other n on-institutional residence as the place of occurrence of the external cause [facility] of occurrence of the external cause Diagnosis 06/14/2020 06:20:00 PM [facility] W19.XXXA Unspecified fall, initial encounter Unsp ecified fall, initial encounter Diagnosis 06/14/2020 06:20:00 PM [facility] [facility] Z20.822 Contact with and (suspected) exposure to covid-19 Contact with and (suspected) exposure to covid-19 Diagnosis 06/14/2020 06:20:00 PM [facility] M25.562 Pain in left knee Pain in left knee Diagnosis 06/14 06:20:00 PM [facility] R33.9 Retention of urine, unspecified Retention of urine, un specified Diagnosis 06/14/2020 06:20:00 PM EDT [facility] S22.31XA Fracture of one rib, right side, initial encounter for closed fracture Fracture of one rib, right side, initial encounter for closed fracture Diagnosis 06/14/2020 06:20:00 PM EDT [facility] S22.071A Stable burst fracture of T9- T10 vertebra, initial encounter for closed fracture Stable burst fracture of t9-t10 vertebra , initial encounter for closed fracture Diagnosis 06/14/2020 06:20:00 PM EDT [facility] compression fracture T10-T12, paraspinal hematoma, rib fracture compression fracture T10-T12, paraspinal hematoma, rib fracture Diagnosis 0 06/14/2020 06:20:00 PM EDT [facility] N40.0 [id number] Benign prostatic hyp erplasia, unspecified whether lower urinary tract symptoms present Problem 01/13/2021 12:00:00 AM EDT eCW1 ([facility]) G56.03 [id number] Bilateral carpal tunnel syndrome Pro blem 07/24/2020 12:00:00 AM EDT eCW1 ([facility]) S22.078D [id number] Other closed fractur e of tenth thoracic vertebra with routine healing, subsequent encounter Problem 07/24/2020 12:00:00 AM EDT eCW 1 ([facility]) M19.90 [id number] Arthritis Problem 06/22/2020 12:00:00 AM ED T eCW1 ([facility]) M89.49 [id number] Primary osteoarthritis involving multiple joints Problem 06/22/2020 12:00:00 AM EDT eCW1 ([facility]) Surgeries/Procedures Procedure Description Date Indications Data Source(s) OFFICE OUTPATIENT NEW 45 MINUTES 01/07/2021 12:00:00 A M EDT [facility] ([facility] ) Remove Impact Cerumen Irrigati 10/06/2020 12:00:00 AM EDT [facility] ([facility] [place], [facility]) OFFICE OUTPATIENT VISIT 15 MINUTES 10/06/2020 12:00:00 AM EDT [facility] ([facility] [place], [facility]) OFFICE OUTPATIENT VISIT 25 MINUTES 10/03/2020 12:00:00 AM EDT [facility] ([facility] [place], [facility]) RADEX SPINE THORACIC 2 VIEWS <td>XR THORACIC SPINE AP AND LATERAL</td><td>Routine</td><td>06/18/2020 10:21 AM EDT</td><td></td><td> </td> 06/18/2020 10:21:00 AM [facility] COVID-19 PCR <td>COVID-19 PCR</td><td>Rou romy</td><td>06/17/2020 10:46 AM EDT</td><td></td><td> </td> 06/17/2020 10:46:00 AM [facility] BASIC METABOLIC PANEL CALCIUM TOTAL <td>BASIC METABOLI C PANEL</td><td>Routine</td><td>06/15/2020 3:52 PM EDT</td><td></td><td> </td> 06/15/2020 03:52:00 PM [facility] MRI SPINAL CANAL LUMBAR W/O CONTRAST MATERIAL <td>MR L UMBAR SPINE WITHOUT CONTRAST [id number]</td><td>STAT</td><td>06/15/2020 3:11 AM EDT</td><td></td><td> </td> 06/15/2020 03:11:49 AM [facility] MRI SPINAL CANAL THORACIC W/O CONTRAST MATRL <td>MR TH ORACIC SPINE WITHOUT CONTRAST [id number]</td><td>STAT</td><td>06/15/2020 3:11 AM EDT</td><td></td><td> </td> 06/15/2020 03:11:49 AM [facility] MRI SPINAL CANAL CERVICAL W/O CONTRAST MATRL <td>MR CE RVICAL SPINE WITHOUT CONTRAST [id number]</td><td>STAT</td><td>06/15/2020 3:11 AM EDT</td><td></td><td> </td> 06/15/2020 03:11:49 AM [facility] ULTRASOUND - BEDSIDE <td>ULTRASOUND - BEDSIDE</td ><td>Routine</td><td>06/15/2020 12:40 AM EDT</td><td></td><td> </td> 06/15/2020 12:40:07 AM [facility] RADIOLOGIC EXAM KNEE COMPLETE 4/MORE VIEWS <td>XR KNEE 4 OR MORE VIEWS [id number]</td><td>STAT</td><td>06/14/2020 10:56 PM EDT</td><td></td><td> </td> 06/14/2020 10:56:58 PM [facility] RESPIRATORY PATHOGEN PANEL <td>RESPIRATORY PATHOGEN PANEL</td><td>Routine</td><td>06/14/2020 7:53 PM EDT</td><td></td><td> </td> 06/14/2020 07:53:00 PM [facility] COVID-19 PCR <td>COVID-19 PCR</td><td>Rou romy</td><td>06/14/2020 7:53 PM EDT</td><td></td><td> </td> 06/14/2020 07:53:00 PM [facility] OFFICE OUTPATIENT VISIT 25 MINUTES 06/14/2020 12:00:00 AM EDT [facility] ([facility], [facility]) uro PVR (Post Voiding Residual) Bladder Scan 12:00:00 AM EDT [facility] ([facility]) Results ID Date Data Source [id number] 02/11/2021 10:35:00 AM EST [facility] Name Value Range Interpretation Code Description Data Susan rce(s) Supporting Document(s) SARS-CoV-2 (COVID-19) RNA [Presence] in Respiratory specimen by DEREJE with probe detection Not Detected [facility] This lab was ordered by [facility] and reported by [facility]. ID Date Data Source [id number] 07/18/2020 11:28:35 AM EDT [facility] XR THORACIC SPINE AP AND LATERALFINAL RE SULTInterpreted by:Magan Reynoso MDEXAM: Thoracic spine, 2 views HISTORY: 69-year-old male who fell sustaining fracture 2 T9 and T10. TECHNIQUE: Standing AP and lateral radiographs of the thoracic portion of the spine. The examination was performed with the patient wearing a body brace.COMPARISON: Today's examination is compared to an earlier study which is dated 06/18/2020. FINDINGS: There is compression deformity of T9 with approximately 30% loss of height and of the upper endplate of T10 with approximately 20% loss of height. There is 53 degrees of thoracic kyphosis present between T4 and T11. This compares to 52 degrees of kyphosis between those same vertebral bodies on the earlier examination.The bones are osteopenic. There is elevated left leaf of the diaphragm with basilar atelectasis present at the left lung base. The appearance there is unchanged when compared to the earlier examination. IMPRESSION: There are compression fractures of T9 and of T10 with 53 degrees of thoracic kyphosis . This is unchanged in appearance when compared to the earlier examination. This document has been electronically signed by Magan Reynoso MD on 07/18/2020 11:26 AM Name Value Range Interpretation Code Description Data Susan rce(s) Supporting Document(s) ID Date Data Source [id number] 07/09/2020 09:22:21 PM EDT [facility] Name Value Range Interpretation Code Description Data Susan rce(s) Supporting Document(s) Progress Note [facility] GFWFYf3aOyTZQyFo13/MMQjhLRKpr1BvTWjaXKv7TSdfGNDsJ0HnGNI8oH3rVCF8HVvSLdMyKlVnVIY2 lbm [file] CGXiDiR6NLM+ZF9zFId+Xz1Vx7GjdqC3mjLvVNynOKZxZO2PQKOUS6MIFk== ID Date Data Source [id number] 06/25/2020 05:56:09 PM EDT [facility] Name Value Range Interpretation Code Description Data Susan rce(s) Supporting Document(s) Consultation [facility] UDDRYm3zSbZEMpUo37/OHBvjIXVoe8MrOQsnAZh6ULpdMGJcY0MjRQC2fV6vNVB2HDhUShLvWzWqLFYl lbm [file] MrV1OeF7QBsbIGJLLr1L ID Date Data Source [id number] 06/22/2020 10:02:41 AM EDT [facility] Name Value Range Interpretation Code Description Data Susan rce(s) Supporting Document(s) ED Provider Note [facility] MLZZUa4oTrZJDoYh58/HLDgjYLAin1YwJQjuRXe8CIkvMJLxP7PaSLK9sI9zZHB5TDeDLmIhXcJcMRY3 lbm AfSznMNkQuGHKfUpmIFxDaFAgvRekmeBEmHP2AwSD3NORvQ96uFSNnCFTnT6KhPBUiWdV+Cv2BYZOdeG AfNH6XPuwK5B6vfls2Is7bYT2Lhvs9tVKwUAyUbVUyyMvbu7PS1aEH8LLMjJd3+nElOqfuU/URSwKExM BcQsE2dY5BjMmGHxT0edj0aiSOJLg0y1+zXhRwzlnx t/yqCKOXdliRn7K0tj8wqvw/aXqHBoNDevNwqX795wg8gIay62td0hMM4Xt/LPCs4UTFLS/WvCofs4IZ bY/FHcdG1KBSJu4Un4yH/PF2xf8tS4OTs2f/eN154wqW/BbDkvVXk/DiKov86AXkzr5S87+5OJZcilYc lrLD26bZl+tjU45b+ALAJgIL4tGm/FELIX+cpY2UXcdcc [file] 7QIK2nvuL6OQ3UcQTkDBYbMISxyBLxUTc2V37kvHPkLHbwQP0UUYV+Saray+Fa3JLSVuBKMrLWOvNyXsBZ ZNJoHhR9KrZ1IKe7FzH3HoWA96oIkjkgTfIJolDH0PIO3oHOCtKEWNDE3LiTCvlQ9clnW8PHTgDPAFDh TyU92noZAgTWIrIDY9YIAtOu5BPJPuS2JbbqOysQcx gzOkOJUcRNNOYJ4FRLodyfVecPZuwHhnWB66rTseBR7LWk7YUcUjAX8ftb4SsJQhEc6MOGV8WD4AAPTj BCEuOZDhQUB3EOGcZuQyXEkuYDYoRVXzOQR5HOHsTCIkWU3SYlDrDQVlABxvZgJdZUAbRZOejy5BNTQg MTF8DMreEPEcYUGaEJYzJVzySLFgBHGyLZN5LZTsRL TbAD3FCrQiNCKiRAM3ZvUvQTWtHKCpun8AGQYzCNTrBvU0OFMhTGSeFXZyMIxvIEFoLAR7KQGlPXQwFL NgSJ8FYlDcGLFoSXF0ElxtYORyGPKoam2NMHFgGUEkLXQjCvCkYACvMAUnFTljTVKfHAGqQdCqQKQzEF KoJT7OBkHzRXQsJGWqRvLlMYKaCSEujj2TCZKiOSUa ExZ7CJGsJAWsSMKkOLajJLTjBTK9LSUdOJNpJLGgWP4DStVvUQXyGFB1QhveVNFmJOAqwm5NZEKiQQNc FNz3HqCyJFOxEUTsHHbvECGpHMT5VLmvICYpBJFpLU0BWgVvBUHtJzG2NFZrCNClMPAjam0KYRFhYRYz Pui9FdLlTDVhYHEeAPltPHUrAKZ8XTx1PYCgBVShHB 0WXhVpKAQeIwB9GKBqBXRwBNDvue2JBXDaRJVmULR3EXAyLZLeQIRjUQglJIAeEGW6Sic3QYErXKTjWL 5MRoJxQCAxHhXyBdatBQYnACNdat0JORJyBBBzBWW8QVTyBTKrNWVsTOdnNYGvXGP9LVP9AXJaJYToRY 7NSkFoPIOqAdFvTCAnAKEwSGYgpl3HKURpFLLhOtk1 OgWhVYQeUVHbXNzeWOXkCQV3HLP6SOMoQTDyKG0HBjFsVDRwTnzaUZazAIIyNYHozk3AJARsDRIzKUFf QwEfDFUwIRYoFPjrMFAmIOA8UEr9CHUnWBIbFP4FPtCjOXKwTNC1YTidTDZfXERmov8YGLIzSVA4ZEP9 JCCmMUNuSMJfYXrwRAYgVNKyPSD0LDYnWMAlCV0AGy OjCWQoKFJ8RXonGFGoZENsil1DPZJfPPK6YOh5NNYzGKYdPPZiICtwBFTlWCWwVCb5FQXjKKKxXB4HAg IxGFBjZSCeXlhsZDKaYMUuss2LALQvOAZ4PiA4HuRnYNShTRUbBMazZDNxCWTePLYlBNFiVRKrPJ2YGr XjANCqGZS5SXfzLKEuZAGdbb4QORQcWNG6MYEeBLHw YPRaBUWeYDnxHVPpFEH2DZN6UYBtXLYrAA3DEzCeYPPiXLT8RPErKBGoCPQlda6MNJTeXXZ9XYeaVSQj EJLrGNCdCQvfLYBlRDY6GaxpJWZuHHFjBI9AIbPkAUXxHMI7GeIxBMWpPWKkqe2AZWOpPCX5SuP7ZMOo ZPKaFXLaPHdnKZOdPPV1BIljPHYoPIOtLP2MZzSuYL HkFEeuKKQbRQSmYYMzcd3MUOMhYGT9XOZ5FyBkRJVhCFJjRAmvILReMJN0QxRiRUUgEYYjCK5KPbApUT BpGDg6WTKsZUZpKJBwgf9QMDDqKAZ3LHfmHUQeHINlKFUvGFppCQLbWJA8GVJ0YNGvAKDeTO9KEyGpUB ZqEkEwNFWgXXVeIDQqku6ACPDlZIQ2DDR5WDMzIYLk ATXySDnkETNyVRUhNXK1XRDbENYnRU9USnBnMTLbXyJ2ZLxpYBXpWCNnhq6EAUDuNOQ9VBc4IKVbLKCo MRRpWPwwUUShHGEiCXD0SGPyGSKpYS0WOsBcFDBgCnFnLQTlZTVpQPVffu1KOEWsYKN1KYJdBGMdLCZy OMDtOTu6lbEoeXAfCDj0NO6IQ8SpleNzQtOQRb2Tb5 42RHJiIDLhCp7ML5nuRu6sFOZtQZLHGe9EZWx2QVz7Kuo5SCp2YxZ4IaU6QjByUDNhUHDqGfYnZSQhTM g+CSfhEAR4XLk1VCknQsFuRuLrKSPkFKQyKkUzCMAqYOLmVK0uOZSQNj4+DQpzdGFydHhyZWYNCjYxNT M6YTjyNQXJKc4S ID Date Data Source [id number] 06/20/2020 08:43:36 AM EDT [facility] Name Value Range Interpretation Code Description Data Susan rce(s) Supporting Document(s) ED Provider Note [facility] TMOWCl1eSqOMUoKw46/HQTqbGFBfd3LgCQnkMSf0LQtyBWAzV8AmQWP1cC1wGXJ5CQwTEvPaWeBzDEH4 lbm [file] 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 [file] D85yvKOwGWliKD6VIFS+Saray+Ow6EAPDsBPMbDBQdBw QiQXQDJzViH2YjW5JQe8LfQ2EwPC08nJuwneGcWSzxQJ4QOC0dXZCsRSSFWQ7XhDXumS8uhkU3CfMuEN RQGnHdH18zsHPlAXDiTYN2IRQsYi1YQUMhE2WbvpLtdOztgeHpUKIaHWXYPQ5YFFzetkOxiWBqqDtsHC 98eWinZQ3MZc9GYpFnLX6gwr1YyGPtMf5AYJY3GO5I HWEeYMVnCXYaKCF9SEIuWzSiKYavRFEwAMLnFMF2WUCrHUNjVE8DXfFjWXStCpixCWBxBSVyPUMmsr4L XUCjITB2THS3CTKrHXTrARGrTYfwKKYmBIIpGNO8TORlBZPeSY0SDoOtRUPxRGXwOiCuCIOnPUFtnl1E RSTmRKKqCEY8AUUrZINzIZUiJJrqVDKqNRS7IRH6LQ MuPUPtOU3JAlWcZAWtXRq3NrEbGRAbTDGwzq4FYCItKMIpGAb1BiJgPDNmKFFaSFnnRPViFTOpEVx9SR ImKSQwVB4ZIjZaGTUbGIM7JERtTJTqXQWcxi2NRKGrGPJlZREzLjMrHIPgVUAoIMmkHSIiLWK6WvToPW JiNOOwGD5XLaNbKJZhCEc8ODceTOSnOOPvcm1RVHXc ACIoGZM7PXYwAPWjZCQoBVidFGOpCSYhPCq4OOGxFMSxYE4ALuAqRMZgJfT7WyIfRCByLOXghk3AMQYk GWQtCmt6BgDmOWDtWSMeIEvmYHObBPB5KHzrUMMyXTAeOX3MXfIoUIEjIcmyCVMuFIKlQEIxcv3EJXUr CGHsFAndKzSwBXOyIRHwOSngMIEqVMO7NHVkJNKcWL TcVP3RAlSzLMStMoGvJAQhQRDvDVDdfs5XVQJsYNXeYsN6TiRlGWErLTTpVGcnCORvGMY6CYK1IESmBV HkPN9AZrCpUGQlSgQfVqJeJQJaDTPsis8DKQMqQWVsRAH2XmFqVUQoXXHiDPsdLXPnBNQ1UtDxGFErSY KcAF8VZrCkHFBjWLW2YRhtONLeFEVjnx1XPAEcLEY4 SPmbSWUxRLXtGZKcDFshTMJdIJM3PWN6BWDnIEHsJI1LIhVjYUWmWEXiQuTlZFLuAXPkvt9SHENwWEE3 XHTaXUKfTUKnSQVzJErmQCJfWNX9ICQrRSIcFMPxIB3RBgHiQBVfZOlzBSIyHQYbIXXhjm4HGLWxGKL7 MKT2RSLaRDRcUGBgHEhrZUQuAZW8ApMxXYFyMXQqAE 5XRwPlHBIxTEV0UoJkBRTeESEfjf1WDBNaBBX4CDwhOuQaJNBhEUZxIDxlLFXoOPRrOHNePRGeICIkHJ 7TIoDlMOVvCRLjMkDzSDYxXLZmpi8JXGBhQTN8WoY4CsTqFBZjFXSoOUxvQEQhIUSmKARgNVUfVIFiLL 7RJjWdIXGpMvX9BwGgNNTdXWPddm3RVDAvSLW1QIB2 KfXsYHMyZQWbQCzlICTqQPN0XfRqNPJxIUEhYJ8VGxPbENBoYtO8AETsDUDjQXQtqj8SKKAmMJL0GUj6 AyGvDLTyZDPuRCxnQAFnKPG3BxnkXHMhXHEiFT6DDiMqAQAeIaA9InbmTTMcQWDeym0LWFIvJJE8XxA2 BmUkULVlOQWxCFnjLCFgZLW3LDLdFLSnHBZiFA6JRe CqRWPqQgyrHFIjEXBxDROvfl2XWLEcKEP7JnA3UAJjZLUwEJMlJHotGQDfZLE2CRC8VQCpJOLmES8PBs ElKIQvZydsXPUzYMPdYQKabs9ENCAoKQV2ONDvVLStCHNeVFKiCRhvPVFqJID3WZbxZCObOZDfXI1SZp VxMEJcTlh5YxpbCHGrZGPrky6HCSIiJCA9BWt8HZNc ESTpTNWvHWyuXNAgYJoyYNN0OQOrGMIqBO4QZuJmGEPkIaJvGbphPDNxQVYlpx6BNGOgORK0YERzHUUk TAWrIRWlFViuARQxMJjiNhb6URDbHYQxTP4LZsGfIFGsGfY6CVEhCZVjHHUaxj6LXIUiMSM5XCAyBPAj YWDgLHWnMSkaUUFuADflGaS8YFKcGGXfYC5MChCuPB GoSiDyBJnzHHNaQLPerw6XAJXsCWF5MST1YEGeYPNbDLYzIOu8egEryWWyGTq2BN9VP5AtajMhIaYPMo 4An061QWT7WUKpKc6YS6nrTv4oLQYzFIKDQe6EDGb4V7M9PYl6KHWfOsO1ZCE8FZIvLBU9BmV4AsvsXI AyMTk+OEu7BjKrBEX3HuA1DKpyCjw0ViEbRaO3Tjfa USB6LUGwNA3uLMXKNl2+YBnfxITczCvoLXCLKtbeJff6DHvxIEPJCw6L ID Date Data Source [id number] 06/18/2020 09:22:52 PM EDT [facility] Name Value Range Interpretation Code Description Data Susan rce(s) Supporting Document(s) Discharge Summary [facility] BLZDLo7jEwLPBkMz71/GZPrrICWkl9PoYLtlCGe6HPzaSRZeK6UtDRY2bP0bSOG4JZgVSdXpNnIxFKZ3 lbm [file] ICAgICAgICAgICAgICAgICAgICAgICAgICAgICAgICAgICAgICAgICAgICAgICAgICAgICAgICAgICAg PUZeCMNiJFDgKTXrVHQxMJJrAE7DTGLhNOJfZRQtZX AgICAgICAgICAgICAgICAgICAgICAgICAgICAgICAgICAgICAgICAgICAgICAgICAgICAgICAgICAgIC SsDLQjTAEmQUErWREqCEIoGLSbLBPdCHUvCVGcVI2ZJTZrCURcKXDwCXMiFOIpEPOtAQXpHNUvCTSsVL AgICAgICAgICAgICAgICAgICAgICAgICAgICAgICAg ZUAxJZSeGWXjUTLzOBNkCLBgLFDvFSJaCWReNEKhKMSkPDInHDYaAY0HCUErPKNvTQBkYHNyTUWpERHe ICAgICAgICAgICAgICAgICAgICAgICAgICAgICAgICAgICAgICAgICAgICAgICAgICAgICAgICAgICAg VQFtSJQbYOOzONEmNKKqMDZvNVEiOJ5SPOTvTCByWA AgICAgICAgICAgICAgICAgICAgICAgICAgICAgICAgICAgICAgICAgICAgICAgICAgICAgICAgICAgIC GfADCoDANgWPAbVQAcOJMyQMBaUIYgWJGiURLxVVBcXH0RGSFeMYIeIZMtYXMqBJZpCGZnGRLvMCMcCE AgICAgICAgICAgICAgICAgICAgICAgICAgICAgICAg RAWfLPVcULOmGUPiNHJjOOWsIXTuVWTaHHPmFALiTZQeSMRzEWEwPAPxTA8TFGCpHQMrUXGfQLVsGVRq ICAgICAgICAgICAgICAgICAgICAgICAgICAgICAgICAgICAgICAgICAgICAgICAgICAgICAgICAgICAg MZZoUNWnERNtCEJwCWMxTVJwBLFqTVNxGC6IAGPdIU AgICAgICAgICAgICAgICAgICAgICAgICAgICAgICAgICAgICAgICAgICAgICAgICAgICAgICAgICAgIC CdGEFwVKNaUCYgGZSrFSJpVSXxONGgBFBkMVWxBFGcXMWmLM3NFRLmKYCzTETpFAOoZHTrEPPrJSQuDB AgICAgICAgICAgICAgICAgICAgICAgICAgICAgICAg MZPxZUEoXEUaHWIyBSJgNEAgJAByBJEkVOSzCHZdPEKeQCHfOVOzZHFiSFEoLK3NQMPeUOXaLVAmYJZi ICAgICAgICAgICAgICAgICAgICAgICAgICAgICAgICAgICAgICAgICAgICAgICAgICAgICAgICAgICAg OFYeQUDuRWZaTVNvRHCrECKrVPJfASPsYSZaGL1MED 87jQCem1Y5YGTbWE5jifq/Bu2LMTuwszDpkVVhSQ6CDeMqVE7vgb1OKkZcYN0pui9MWUjCBoYpY7Z0lR EtJLMmUSBLGbJxZ13dDYwbWy01XHevCKXhSuIuECg3Pu7CDxZeT8ulIBUaXuO0VLLzTxD1ESQbDlH4XM WlRtGrZIYqGGWmRHPwOATHFG1TLpBbK4MnbL63USEU Cj4+NCqdkrClPhnSFkUwEDLxh2LcCVf4RW1TJUGhFudug2AvByXaXRXOXWpzZX8FDSY8SJJqFBYkBu8G VRIzG501gfFhMH8GBq8GKtQuFI9bko2RCiQkIKWhDuuHHbc5LGgjHZ2VqEIzRCkOdKNxvEDqI0TnJ4Lr hJLjtTCnbTBqGPklnzHElYRtJTNxUG2YMSG1SJTgFX 2nDNXgOKWxLcV7LGAQAD1WQACwSFTcoRLqNNSwZIJEKF5MTBxeXGJ0PZZtlkHasIErZErkLM5JYLQjcj QgMzAgMCBSDQo+Hl0HGU9ar1DjDSmnXoUpSV1zcl6ZYAyJMmPbU9J9qDRxD7L5HTqyAz0PEOGjQQKyJr kqEIPTIDjsWZ8VRT9nkcC2PB4WkTGaTHMaRGAhhPVg ECi0Y49ewBMiKGpkBT2ZQHX+Saray+Jh6CVSIyBJDfZDAtXyRiPZPSQwPkO4GfC7ATq2KwP1XtVK81tKrr dqPmIAvaTO3OKL1fWUJsDFVTNB2GyJRydX3csaXwONAsZVXQXqXhJ08tkTNvLDRiNGB7TSHpFr4YRQRi Y0CdwaVtgXevbrBbHVLkBIFAPZ0ZRTtkbuFcrELqaK koZK37wWjqWP2WUj9JKlYoVG3gmp9PtFObJs9GOOUkQc1LLWPwHOCsNFXsUQY6SWHqLlMwOMhjXUFwOP IrASI8JONdMJFmEI3YDtMnMYGpVzEyUgYtCXRhVIAzxj9OIQQtIRHvTQH0KOTkMDFcGIObYLqvDOZeEQ BdCTD1PSPvCXLfNG1TJqPfRUUeHDBlIVOjFAYpZXGm yr9JVZLcFLHhBRJ1ERJmVVDaSXUqBJeyQODtZRB0Ujx4QKHuCDVqEX9UTbAvPGZcXFh8CSMfHNZiVVQi fm1QXMAtKDUrMIN8PYNlHBMxWFAxDHjuPOUyCMBfFpH8ANYwNIGxTJ9XHoIyLSPqPRTaWmuqVOFrKXSk ui6SHYCyZSZvLsY0ETEfMPUiNYLfLSjwYVIgBUR7Oi ehJAWeALKcXB4CJdWqFURgNZY6CKNnNRCcVDFgcx9NMJBhDFSlCjS9IhQkCDVuFRRkBPqbWEEqWDN4Eo DwQPQeKBBoNT3RCvUzQIOdUEf4YyWfMPRaKAMyod1KAOSkMVIqIVm5MHKaQSZzKVBeAWvoLBYuRTD2MD c8MHWqUFMvCR4JBpWfQVWwDNjuQLNfFCIwGRKctu8U RVOzENJzEHD9UUOoJHFeAEZtYLysHEVpNNZwCnB5QQQhJIXqFG5RQoJgLWOaXeO9UfsiNGMiQYHcci1H LXGdIKGvLOJ0DXEqKTBvWZCcWCauEWUyFUI1OuQaTUDgKZBxZI6SDaFsPUFwXuA6HnIbQISjEZFpcy8S YUBqNBWnPuX0EWGmXZWyBQHwOEasADBaCXZ7JkUoGQ GqPZLiGY5ZXyApLFYnDhK7GysxGYLrXUWeiw5CXQQrTUEnFCS7LrBaRGMlREQpPYsdTLOlKYE5EdPdYH UqZMNiEU8CMrTnMNMzDco1SWXhCLIoPWWnjb4KiWAjdZjkmy5XXXjSTt8TwSpeYQYlYFczRv9xgQMnRm VqSPCCEi7CrjPgOGMxZGHJMCbpRZYqORStDoX4DlR9 JwJsAyVnZVllBUM6NhC7FYQbMARxO2CfJvL3AEV2WdazBDaiPoB7LDD8CVQ0JqjgXtLpAeTgBDB8RmU+ TT9qWBr+Tj7Kx1MxszQ3xdVrSGajVWW4Ru8XSZWNB3IHTz== ID Date Data Source [id number] 06/18/2020 01:35:17 PM EDT [facility] Name Value Range Interpretation Code Description Data Susan rce(s) Supporting Document(s) ED Provider Note [facility] GCUNMj6rAiFXNpYj48/ZJDpwHWUan8DfQUhsVGy7UErfSPFhK7YnSBJ5qM3tTIB3MRrXGeZbQkIcRKP5 lbm [file] ZuRqorIMEoMiH1LkQrCAIeBSUhPDtrMoOmWP0BZl5AXvW5LDM6qBJzUv4GQlG2WLFUOsXuIU2PNYe= ID Date Data Source [id number] 06/18/2020 10:59:35 AM EDT [facility] XR THORACIC SPINE AP AND LATERALFINAL RE SULTInterpreted by:Micah Hilario MDThoracic spine, AP and lateral dated 06/18/2020.REASON FOR STUDY: Standing upright films in brace.FINDINGS: AP and lateral views of the thoracic spine were obtained. The examination was carried out through an external brace. Bone detail is a limited due to difficulties in adequate penetration an overlying artifact. The previously documented compression deformities involving the T10 and T11 vertebral bodies are identified and are grossly unremarkable compared to a recent MRI examination from 06/15/2020. The alignment of the spine is unchanged. There is degenerative spondylosis throughout the thoracic spine. In the AP projection there is a convex left curve. A prominent bowel gas patterns are seen within the left upper and midabdomen and clinical correlation is recommended in this regard.IMPRESSION:1. T10 and T11 compression deformities with the overall alignment of thoracic spine grossly unchanged from the MRI examination dated 06/15/2020. This is an upright study of with an external brace in place.2. Prominent bowel gas patterns within the left upper quadrant and midabdomen. Clinical correlation is recommended in this regard.This document has been electronically signed by Micah Hilario MD on 06/18/2020 10:57 AM Name Value Range Interpretation Code Description Data Susan rce(s) Supporting Document(s) ID Date Data Source [id number] 06/17/2020 10:46:00 AM EDT [facility] Name Value Range Interpretation Code Description Data Susan rce(s) Supporting Document(s) SARS-CoV-2 RNA 2019 nCoV Real-Time RT-PCR: NOT DETECTED [facility] This lab was ordered by [facility] and reported by [facility]. ID Date Data Source [id number] 06/17/2020 02:30:26 PM EDT [facility] Name Value Range Interpretation Code Description Data Susan rce(s) Supporting Document(s) Specimen source [Identifier] of Unspecified specimen [facility] SARS-CoV-2 RNA 2019 nCoV Real-Time RT-PCR: NOT DETECTED [facility] Assay Performed [facility] Patients first test for condition [facility] Patient employed in healthcare setting [facility] Patient has symptoms related to condition [facility] When did you start to experience these symptoms [Date and time] [Phen X] [facility] Patient was hospitalized because of this condition [facility] patient was admitted to ICU for condition [facility] Patient resides in a congregate care setting [facility] status [facility] ID Date Data Source [id number] 06/16/2020 08:20:08 AM EDT [facility] Name Value Range Interpretation Code Description Data Susan rce(s) Supporting Document(s) History and Physical [facility] JCBONl2rKkYUKmOt68/BVCvsGCPal2NpDJebBCk9ZFghNPXeR1IrSLA1eL7eJGR7FTrQOiHtHeWgTCMi lbm [file] E+DQogICAgICAgICAgICAgICAgICAgICAgICAgICAgICAgICAgICAgICAgICAgICAgICAgICAgICAgIC AgICAgICAgICAgICAgICAgICAgICAgICAgICAgICAgICAgICAgICAgICAgDQogICAgICAgICAgICAgIC AgICAgICAgICAgICAgICAgICAgICAgICAgICAgICAg ICAgICAgICAgICAgICAgICAgICAgICAgICAgICAgICAgICAgICAgICAgICAgICAgICAgICAgDQogICAg ICAgICAgICAgICAgICAgICAgICAgICAgICAgICAgICAgICAgICAgICAgICAgICAgICAgICAgICAgICAg ICAgICAgICAgICAgICAgICAgICAgICAgICAgICAgIC AgICAgDQogICAgICAgICAgICAgICAgICAgICAgICAgICAgICAgICAgICAgICAgICAgICAgICAgICAgIC AgICAgICAgICAgICAgICAgICAgICAgICAgICAgICAgICAgICAgICAgICAgICAgDQogICAgICAgICAgIC AgICAgICAgICAgICAgICAgICAgICAgICAgICAgICAg ICAgICAgICAgICAgICAgICAgICAgICAgICAgICAgICAgICAgICAgICAgICAgICAgICAgICAgICAgDQog ICAgICAgICAgICAgICAgICAgICAgICAgICAgICAgICAgICAgICAgICAgICAgICAgICAgICAgICAgICAg ICAgICAgICAgICAgICAgICAgICAgICAgICAgICAgIC AgICAgICAgDQogICAgICAgICAgICAgICAgICAgICAgICAgICAgICAgICAgICAgICAgICAgICAgICAgIC AgICAgICAgICAgICAgICAgICAgICAgICAgICAgICAgICAgICAgICAgICAgICAgICAgDQogICAgICAgIC AgICAgICAgICAgICAgICAgICAgICAgICAgICAgICAg ICAgICAgICAgICAgICAgICAgICAgICAgICAgICAgICAgICAgICAgICAgICAgICAgICAgICAgICAgICAg DQogICAgICAgICAgICAgICAgICAgICAgICAgICAgICAgICAgICAgICAgICAgICAgICAgICAgICAgICAg ICAgICAgICAgICAgICAgICAgICAgICAgICAgICAgIC AgICAgICAgICAgDQogICAgICAgICAgICAgICAgICAgICAgICAgICAgICAgICAgICAgICAgICAgICAgIC EyURTjKJDuRVPaTXXxYQJtLGOaRIIjKEMePCVzXPMjZGLjSUAoJEBrQLQtXTPhEUFbIBVeVGb1O1mpTN SdZUQsLT5xRHz1Kf5+PPtNTkOnPEY5wfUfaT2BPE0v e4MzDDmoRQBzz2OuPOm8OL2SOHQnJVgcXC3OWBxira3CEZYrVSGkdHLXa3agMeOiNIP7XUOuIrdcLJ0K AOAxB3dovqQyNFMiRGHXQGaxZLFAWPvfBBLOQJTbJVAeGtHsIhEdABQrOZVhFYMHUX7PRiInV9DogN04 IDYNCj4+PKponjBgPdpGObR8BKHom7QhKSr8DW6AML JpTadql2OyXmhoZZCAVOfiDP3VTXP4HCO0XLDgMe2CXSMtP753lqWkCR4HGl8HVmJmLI4pzz1AMavsEM PfFsvOCxp4JIhbBB3IbADwHExZQrYhDjskTzvhzQZiFXrdmhsjSE4RLiLyGFWhSG0mZaPiMbLjIVG0Yr wnYU9tBTjdVA2BOUO5VJauMMPfAPRoV2nQJjIcDLVn HvPrgTrlAF1HTcRpD6TphkGwxKFfUNDtHRNUWe0+KQtpsiKoEdeCDfPkXUOnl3HgRHi6UG1TDLUhYEco TY2PXPOdvQ2kOChwBB8QDwPxBwDpUHSNEhRjS69wcKDbAWj0U6HkSzIeGBLpWafaZQThYLflWuRhRSAt WyBdDQogID4+ID4+GVkaKD1PFCkxdmJiDKCgIc8QBL MwUTWbDV3kUDOvRKKfO3Y7uRthNXCADnFaW6sfcgltOZ6mXMMeF717wKkircQrUAA8EBCqLj9KBRNfIO N3VATquWWsUgjjGNKVCNojDZ2OwIYmVLW4cL1fTRniAOJkQXZbD0lCJgVtsUhwEE25tJakndVbuMIhWC o+Vc6TKZ0va0BeAYc7bjWaSIwjVRAdRKyuPHRzZZGq KHWaWOA0UXQ7EXTTMdGrDNHvGBEyGFktDXYtRKJgyl0GOXWxJGC2NAS0SaNyNFKuWWBcINqgGFQgIUNb CNQ2RGLdHQHsRO2QTrBnTQWrMUOtARpcUKWxPMPujo6PXDChRLEmGIJ5JVZuXJUeJYIpTIhoTAMxIYK3 Bwf6RADsHTOkPA4QUmMlJYHoYPm9LJmdVHJjKZLbex 2NXHKzLWMpKtffHIAuGSUgSDUrGRdeKKFsSDZrXfClRBZaCOYqUT6QOlCjSPLkDMD2TQKfRMRvUSPpae 9BJLDhNDTbXDDwHAUsQOTsBHEmETumVLHpDIZ7GECbTIMrMIXwLR8GPsWaCVAlPUl7AIVyRRKeZVYflk 0EBSLeLJSsOBiuTpQeLXWaTLCxCUnjJNStHDRqWOS2 ZJVmKPJzNC1VLvYfJKYzHxQkUZJcPLJxRBLqlu6HZIDkTTCoRzQyDUDcRHFiSJAeSRhaBOYmPOYhAhTi MALoLGBoOA1BWtNoHOHxObEuBECyZHGvENJyyg9XDGKbUPCaFwU7TNJnKDLhAQTcRArzTZKvCJZxERD8 HRVwNYZmQV1POdHxXSDsFmT4RcKsLFVjPNCssr8KCL UqSVBpUWB6KvIyPTFwDXZkYQplQNTjRPE8SOn3FSPgVKPhUB9USvGjXMXuMcQcKFKgFKVwVDNdlb3RHS VePMMkLdZ0GvQcRSBlCFSvSTnlMSIgRPN9IkKrZGYoOPLfRN7VJwDqPPBqCaL5ApXlRAXkZIIxsa2PRE LlZLPcFcauRJCeGMBsHPFtNZelCNGgJGS4XVR6ITZw ABCvID8ORmMzPNEoKqzqFgYoYTEcJLZuaf7PTSBuVNPoYHM1GYNtZQPnUNNiIVzcNLYkCMT3QtYsKAHd DIRmUX0BZmLzTETbCwo5NeBtQWCyIEFzxj8BBWPoKHQhQUg6PjByKTDxSZAgRVyvOCDyNLWsDLTvJXUm TTNpMU5KDwReFXKqTGL3SbboSYUnEKRpsf8AWIEsYB R0QGn0CCDtRWWyQOSyXQtrSKAvCKLgWEKgTSCaSCZeCC9QNrChSIZfOGDiZRxsBMAxKXIszv5OvPFqyS bgfe9CITmJBp6WfZveFQHmZFhjPh7gjMZ5SQFqTGAYOf8EfxWxPDBiSOBJOBevWDPyGTvwGLBzBIacFK SnVBZwSxG2CsH5LPZoH5AbEbE6GnA8RhD8DpD1DwTv KCXeTPKiIjC3MWhdDrbaGgP6YDAaWBmaCIW+NL9bCHt+Wj9Ki8XlcdW1zuGbAPw7OtCsSX1UIRFDS5XX Cg== ID Date Data Source [id number] 06/15/2020 04:59:29 PM EDT [facility] Name Value Range Interpretation Code Description Data Susan e(s) Supporting Document(s) Bicarbonate [Moles/volume] in Serum 20 mmol/L 22-29 L [facility] Chloride [Moles/volume] in Serum or Plasma 104 mmol/L 98-107 [facility] Creatinine [Mass/volume] in Serum or Plasma 0.74 mg/dL 0.70-1.20 [facility] Glucose [Mass/volume] in Serum or Plasma 107 mg/dL 70-140 [facility] Potassium [Moles/volume] in Serum or Plasma 3.8 mmol/L 3.4-5.1 [facility] Sodium [Moles/volume] in Serum or Plasma 139 mmol/L 136-145 [facility] Urea nitrogen [Mass/volume] in Serum or Plasma 14 mg/dL 8-23 [facility] Anion gap 3 in Serum or Plasma 15 mmol/L 8-15 [facility] Osmolality of Serum or Plasma by calculation 289 mosm/kg 275-300 [facility] Creatinine/Urea nitrogen [Mass Ratio] in Serum or Plasma 19 [facility] Calcium [Mass/volume] in Serum or Plasma 9.3 mg/dL 8.8-10.2 [facility] Glomerular filtration rate/1.73 sq M pre dicted among non-blacks [Volume Rate/Area] in Serum or Plasma by Creatinine-based formula (MDRD) >6 0 [facility] Glomerular filtration rate/1.73 sq M pre dicted among blacks [Volume Rate/Area] in Serum or Plasma by Creatinine-based formula (MDRD) >60 [facility] ID Date Data Source [id number] 06/15/2020 09:16:27 AM EDT [facility] MR LUMBAR SPINE WITHOUT CONTRAST [id number] NAL RESULTInterpreted by:Brandy Garcia, MDMR LUMBAR SPINE WITHOUT CONTRAST [id number] CLINICAL INFORMATION: 69-year-old male with known lumbar fracture. TECHNIQUE: Multiplanar multi-sequential imaging of the lumbosacral spine was performed without intravenous contrast.COMPARISON: None available.FINDINGS: For the purpose of this report, the lowest complete disk space is L5/S1. VERTEBRAE: Lumbar lordosis is present. The vertebrae are normal in alignment. The vertebral bodies are normal in height.Scattered Modic type II changes throughout the lumbar spine, particularly within L1 and L2, consistent with bone marrow fatty change there is no evidence of acute fracture..CONUS MEDULLARIS: The conus medullaris is normal in morphology and terminates at T12-L1.INDIVIDUAL LEVELS:T12-L1: No disc herniation, spinal stenosis or foraminal narrowing.L1- L2: Left asymmetric disc bulge with central and right paracentral disc protrusion causing mild bilateral neuroforaminal narrowing. No spinal canal narrowing.L2-L3: Broad-based disc bulge and ligamentous hypertrophy causing mild spinal canal and neuroforaminal narrowing.L3-L4: Broad-based disc bulge causing mild neuroforaminal narrowing, right greater than left, and mild canal narrowing.L4-5: Broad-based disc bulge causing moderate bilateral neuroforaminal narrowing. No spinal canal narrowing.L5-S1: Central and left paracentral disc bulge causing moderate left neuroforaminal narrowing and mild right neuroforaminal narrowing.OTHER: There are sclerotic changes of the SI joints. There is fatty atrophy of the paraspinal musculature. Left renal cysts are partially visualized.IMPRESSION:1. Degenerative changes of the lumbar spine with multilevel disc bulge and protrusion, described in detail above, most notable for moderate neuroforaminal narrowing at L4-L5 and L5-S1 as well as mild spinal canal stenosis at L2-L3 and L3-L4 levels. 2. No evidence of acute fracture involving the lumbar levels.This document has been electronically signed by Anila Breen MD on 06/15/2020 9:14 AM Name Value Range Interpretation Code Description Data Susan rce(s) Supporting Document(s) ID Date Data Source [id number] 06/15/2020 09:02:45 AM EDT [facility] MR THORACIC SPINE WITHOUT CONTRAST [id number] FINAL RESULTInterpreted by:Brandy Garcia, [facility] [id number] CLINICAL INFORMATION: 69-year-old male with known thoracic vertebral fracture. TECHNIQUE: Multiplanar multi-sequential imaging of the thoracic spine was performed without intravenous contrast.COMPARISON: None available.FINDINGS: Twelve thoracic vertebral segments are designated.VERTEBRAE: There is an acute compression fracture of T10 without retropulsion. Linear nondisplaced fracture of the inferior articular processes and spinous process of T9. There is a compression fracture of T11, likely chronic. There is a focus of Modic type I changes involving the inferior endplate of T8, consistent with bony edema. There are multilevel degenerative changes of the thoracic spine with mild loss of intervertebral disc space involving T7-T8, T8-T9, T9-T10. Modic type II changes of the anterior inferior endplate of T12 consistent with fatty bone marrow c onversion.Disc bulges are noted from T9-10 through T12-L1 causing Mild spinal canal stenosis.SPINAL CORD: The spinal cord is normal in signal and caliber The conus medullaris is normal in morphology and terminates at T12-L1.INDIVIDUAL LEVELS: Review of the remaining individual levels reveals no disc herniation, spinal canal or foraminal narrowing.OTHER: There is an acute minimally displaced fracture of the right 9th rib at the costovertebral junction. There are multiple left renal cysts present.IMPRESSION:1. Acute compression fracture of T10 without retropulsion.2. Nondisplaced linear fracture through the inferior articular processes and spinous process of T9.3. Acute minimally displaced fracture of the right 9th rib at the costovertebral junction.4. Compression fracture of T11, likely chronic.5. Degenerative changes of thoracic spine, as described.6. Right renal simple cysts.Critical findings were discussed with Dr. Koroma by Dr. Herman on 06/15/2020 3:56 AM.This document has been electronically signed by Anila Breen MD on 06/15/2020 9:00 AM Name Value Range Interpretation Code Description Data Susan rce(s) Supporting Document(s) ID Date Data Source [id number] 06/15/2020 08:58:55 AM [facility] MR CERVICAL SPINE WITHOUT CONTRAST [id number] FINAL RESULTInterpreted by:Brandy Garcia, [facility]AST [id number] CLINICAL INFORMATION: 69-year-old male with thoracic fracture.TECHNIQUE: Multiplanar multi-sequential imaging of the cervical spine was performed without intravenous administration of contrast.COMPARISON: None available.FINDINGS: VERTEBRAE: Cervical lordosis is present. There is mild chronic loss of the vertebral body heights of C3-C5. There is loss of intervertebral disc space of C5-C6. The vertebrae are normal in alignment. No evidence of fracture of the cervical spine.CRANIOCERVICAL JUNCTION AND SPINAL CANAL: The craniocervical junction is normal. SPINAL CORD: The spinal cord is normal in signal and morphology. INDIVIDUAL LEVELS: The axial T1 and T2 images are severely compromised due to motion artifact. There is ligamentous hypertrophy and disc bulge extending from C3 to C5 causing mild to moderate canal narrowing at these levels. Review of the remaining levels demonstrates no herniation, spinal canal, foraminal narrowing.IMPRESSION:Motion degraded study.Degenerative changes of the cervical spine, most notable for severe narrowing of the C5-C6 disc space and mild to moderate canal narrowing extending from C3 through C5.This document has been electronically signed by Anila Breen MD on 06/15/2020 8:56 AM Name Value Range Interpretation Code Description Data Susan rce(s) Supporting Document(s) ID Date Data Source [id number] 06/16/2020 01:29:15 PM EDT [facility] ULTRASOUND - BEDSIDESUNY_MSK: Exam In formation: Exam type: Clinically indicated / billable Indication(s) for Exam: The exam was performed with the following indications:: Soft tissue or bone pain, Other indications as noted in the H&P Views Obtained: Precise structure and location:: R and L knee joint Findings: Joint effusion:: Present Detail of findings:: small b/l joint effusions Interpretation: Joint effusion (see above)Electronically signed by Kem Pedroza on Tuesday, June 16, 2020 at 1:29 PM Name Value Range Interpretation Code Description Data Susan rce(s) Supporting Document(s) ID Date Data Source [id number] 06/14/2020 11:02:04 PM EDT [facility] XR KNEE 4 OR MORE VIEWS [id number] RESUL TInterpreted by:JAMES FernandezROCEDURE INFORMATION: Exam: XR Left Knee Exam date and time: 06/14/2020 10:41 PM Age: 69 years old Clinical indication: Other: Pain, fall TECHNIQUE: Imaging protocol: XR Left knee. Views: 4 or more views. COMPARISON: No relevant prior studies available. FINDINGS: Bones/joints: There are moderate degenerative changes of the patellofemoral joint. A moderate suprapatellar joint effusion is present. The medial joint space is maintained. The lateral joint space is maintained. There is no evidence of acute fracture. Soft tissues: Unremarkable IMPRESSION: Degenerative joint disease in the patellofemoral joint. THIS DOCUMENT HAS BEEN ELECTRONICALLY SIGNED BY FELIPE SAENZ MDThis document has been electronically signed by Felipe Saenz MD on 06/14/2020 11:01 PM Name Value Range Interpretation Code Description Data Susan rce(s) Supporting Document(s) ID Date Data Source [id number] 06/14/2020 07:53:00 PM EDT [facility] Name Value Range Interpretation Code Description Data Susan rce(s) Supporting Document(s) SARS-CoV-2 RNA 2019 nCoV Real-Time RT-PCR: NOT DETECTED [facility] This lab was ordered by [facility] and reported by [facility]. ID Date Data Source [id number] 06/14/2020 09:35:47 PM EDT [facility] Name Value Range Interpretation Code Description Data Susan rce(s) Supporting Document(s) Specimen source [Identifier] of Unspecified specimen [facility] SARS-CoV-2 RNA 2019 nCoV Real-Time RT-PCR: NOT DETECTED [facility] Assay Performed [facility] Patients first test for condition [facility] Patient employed in healthcare setting [facility] Patient has symptoms related to [facility] When did you start to experience these symptoms [Date and time] [Phen X] [facility] Patient was hospitalized because of this condition [facility] patient was admitted to ICU for [facility] Patient resides in a congregate care setting [facility] status [facility] ID Date Data Source [id number] 06/14/2020 09:34:41 PM EDT [facility] Service Cmnt XXX-Imp : NoneRespiratory P CR Panel : PCR ResultsMicroorganism XXX Cult : See Labs Tab for 2019 nCoV RT-PCR resultsHAdV DNA QI DEREJE+non-probe : Not DetectedHCoV [id number] Nph QI DEREJE+non-probe : Not DetectedHCoV [id number] Nph QI DEREJE+non-probe : Not [id number] RNA Nph QI DEREJE+non-probe : Not OrrvkzgeYPiCBG02 RNA Upper resp QI DEREJE+probe : Not DetectedhMPV RNA Nph QINAA+non-probe : Not DetectedRV+EV RNA Nph QI DEREJE+non-probe : Not DetectedFLUAV RNA Nph QI DEREJE+ non-probe : Not DetectedFLUBV RNA Nph QI DEREJE+non-probe : Not DetectedHPIV1 RNA NphQINAA+non-probe : Not DetectedHPIV2 RNA Nph QINAA+non-probe : Not DetectedHPVI3 RNA Nph DEREJE+non-probe : Not DetectedHPIV4 RNA Nph Q DEREJE+non-probe : Not DetectedRSV RNA Nph Q DEREJE+non-probe : Not DetectedB pert.PT PrmtNph Q DEREJE+non-probe : Not DetectedC pneum DNA Nph Q DEREJE+non-probe : Not DetectedM pneum DNA Nph Q DEREJE+non-probe : Not DetectedB [id number] DNA Nph DEREJE+non-probe : Not Detected Name Value Range Interpretation Code Description Data Susan rce(s) Supporting Document(s) ID Date Data Source [id number] 06/14/2020 03:22:00 PM EDT [facility] Name Value Range Interpretation Code Description Data Susan rce(s) Supporting Document(s) SARS coronavirus 2 RNA [Presence] in Res piratory specimen by DEREJE with probe detection NEGATIVE [facility] This lab was ordered by [facility] a nd reported by [facility]. ID Date Data Source PLZ SPINE LS COMPLETE 05/08/2020 12:00:00 AM EST eCW1 ([facility]) Name Value Range Interpretation Code Description Data Susan rce(s) Supporting Document(s) PLZ SPINE LS COMPLETE eCW1 ([facility]) ID Date Data Source PSA SCREENING 03/23/2020 12:00:00 AM EST eCW1 ([facility]) Name Value Range Interpretation Code Description Data Susan rce(s) Supporting Document(s) 0.38 < 4.00 PSA SCREENING eCW1 ([facility]) ID Date Data Source VITAMIN D 25-HYDROXY 03/23/2020 12:00:00 AM EST eCW1 ([facility]) Name Value Range Interpretation Code Description Data Susan rce(s) Supporting Document(s) 49.5 30.0-100.0 TOTAL 25(OH) VITAMIN D eC W1 ([facility]) ID Date Data Source PTH INTACT 03/23/2020 12:00:00 AM EST eCW1 ([facility]) Name Value Range Interpretation Code Description Data Susan rce(s) Supporting Document(s) 33.9 18.5-88.0 PTH INTACT eCW1 ([facility]) ID Date Data Source LIPID PANEL (CARDIAC RISK) 03/23/2020 12:00:00 AM EST eCW1 ( [facility]) Name Value Range Interpretation Code Description Data Susan rce(s) Supporting Document(s) 89 NON-HDL-C eCW1 ([facility]) Triglyceride [Mass/volume] in Serum or Plasma by calculation 56 <150 TRIGLYCERIDES LEVEL eCW1 ([facility]) Cholesterol in HDL [Moles/volume] in Serum or Plasma 62 >40 HDL CHOLESTEROL eCW1 ([facility]) Cholesterol in LDL [Mass/volume] in Serum or Plasma by calculation 78 <100 LDL CHOLESTEROL eCW1 ([facility]) Cholesterol [Moles/volume] in Serum or Plasma 151 <200 CHOLESTEROL LEVEL eCW1 ([facility]) 2.435 <5 CHOLESTEROL RISK RATIO eCW1 ([facility]) ID Date Data Source Comprehensive Metabolic Profile (CMP) 03/23/2020 12:00:00 AM EST eCW1 ([facility]) Name Value Range Interpretation Code Description Data Susan rce(s) Supporting Document(s) 81 70-100 GLUCOSE, FASTING eCW1 ([facility]) 15 7-18 BLOOD UREA NITROGEN eCW1 ([facility]) > 60.0 >42 GLOMERULAR FILTRATION RATE eCW 1 ([facility]) 141 136-145 SODIUM LEVEL eCW1 ([facility]) 4.2 3.5-5.1 POTASSIUM SERUM eCW1 ([facility]) 0.88 0.70-1.30 CREATININE FOR GFR eCW1 ([facility]) 27 21-32 CARBON DIOXIDE LEVEL eCW1 ([facility]) 108 98-107 CHLORIDE LEVEL eCW1 ([facility]) 13 7-37 AST/SGOT eCW1 ([facility]) 8.8 8.8-10.2 CALCIUM LEVEL eCW1 ([facility]) 0.7 0.2-1.0 BILIRUBIN,TOTAL eCW1 ([facility]) 68 45-117 ALKALINE PHOSPHATASE eCW1 ([facility]) 6.8 6.4-8.2 TOTAL PROTEIN eCW1 ([facility]) 24 12-78 ALT/SGPT eCW1 ([facility]) 3.8 3.2-5.2 ALBUMIN eCW1 ([facility]) 1.3 ALBUMIN/GLOBULIN RATIO eCW1 ([facility]) ID Date Data Source CBC with Differential 03/23/2020 12:00:00 AM EST eCW1 ([facility]) Name Value Range Interpretation Code Description Data Susan rce(s) Supporting Document(s) 6.9 4.0-10.0 WHITE BLOOD COUNT eCW1 ([facility]) 5.14 4.30-6.10 RED BLOOD COUNT eCW1 ([facility]) 45.3 42.0-52.0 HEMATOCRIT eCW1 ([facility]) 15.4 13.5-17.5 HEMOGLOBIN eCW1 ([facility]) 88.1 80.0-96.0 MEAN CORPUSCULAR VOLUME e CW1 ([facility]) 13.1 11.5-14.5 RED CELL DISTRIBUTION WID TH eCW1 ([facility]) 30.0 27.0-33.0 MEAN CORPUSCULAR HEMOGLOB IN eCW1 ([facility]) 34.0 32.0-36.5 MEAN CORPUSCULAR HGB CONC eCW1 ([facility]) 3.2 0.0-3.0 EOS % eCW1 ([facility]) 13.5 0.0-5.0 MONO % eCW1 ([facility]) 20.7 24.0-44.0 LYMPH % eCW1 ([facility]) 61.9 36.0-66.0 NEUTROPHILS % eCW1 ([facility]) 244 150-450 PLATELET COUNT, AUTOMATED eCW1 ([facility]) 0.9 0.0-0.8 MONO # eCW1 ([facility]) 1.4 1.5-5.0 LYMPH # eCW1 ([facility]) 4.3 1.5-8.5 NEUTROPHILS # eCW1 ([facility]) 0.4 0.0-1.0 BASO % eCW1 ([facility]) 0.0 0.0-0.2 BASO # eCW1 ([facility]) 0.2 0.0-0.5 EOS # eCW1 ([facility]) Procedure Social History Code Duration Value Status Description Data Source(s ) Smoking 01/13/2021 12:00:00 AM EDT Never Smoker completed Never S moker eCW1 ([facility]) Smoking 01/04/2021 12:00:00 AM EDT Never Smoker completed Never S moker eCW1 ([facility]) Smoking 10/03/2020 12:00:00 AM EDT Patient has never smoked co mpleted Patient has never smoked MEDENT ([facility]) Smoking 07/24/2020 12:00:00 AM EDT Never Smoker completed Never S moker eCW1 ([facility]) Smoking 07/24/2020 12:00:00 AM EDT Never Smoker completed Never S moker eCW1 ([facility]) Smoking 07/24/2020 12:00:00 AM EDT Never Smoker completed Never S moker eCW1 ([facility]) Smoking 07/24/2020 12:00:00 AM EDT Never Smoker completed Never S moker eCW1 ([facility]) Smoking 07/24/2020 12:00:00 AM EDT Never Smoker completed Never S moker eCW1 ([facility]) Smoking 07/24/2020 12:00:00 AM EDT Never Smoker completed Never S moker eCW1 ([facility]) Smoking 07/24/2020 12:00:00 AM EDT Never Smoker completed Never S moker eCW1 ([facility]) Smoking 07/24/2020 12:00:00 AM EDT Never Smoker completed Never S moker eCW1 ([facility]) Smoking 07/24/2020 12:00:00 AM EDT Never Smoker completed Never S moker eCW1 ([facility]) Smoking 07/24/2020 12:00:00 AM EDT Never Smoker completed Never S moker eCW1 ([facility]) Smoking 07/24/2020 12:00:00 AM EDT Never Smoker completed Never S moker eCW1 ([facility]) Smoking 07/24/2020 12:00:00 AM EDT Never Smoker completed Never S moker eCW1 ([facility]) Smoking 07/24/2020 12:00:00 AM EDT Never Smoker completed Never S moker eCW1 ([facility]) Alcohol intake 07/03/2020 12:00:00 AM EDT Lifetime non-drinker (finding) completed Lifetime non-drinker (finding) [facility] Tobacco use and exposure 07/03/2020 12:00:00 AM EDT Never used co mpleted Never used [facility] Smoking 07/03/2020 12:00:00 AM EDT Never smoker completed Never s [facility] Smoking 06/22/2020 12:00:00 AM EDT Never Smoker completed Never S moker eCW1 ([facility]) Smoking 06/22/2020 12:00:00 AM EDT Never Smoker completed Never S moker eCW1 ([facility]) Smoking 06/22/2020 12:00:00 AM EDT Never Smoker completed Never S moker eCW1 ([facility]) Smoking 06/22/2020 12:00:00 AM EDT Never Smoker completed Never S moker eCW1 ([facility]) Smoking 06/22/2020 12:00:00 AM EDT Never Smoker completed Never S moker eCW1 ([facility]) Alcohol intake 06/15/2020 12:00:00 AM EDT Lifetime non-drinker (finding) completed Lifetime non-drinker (finding) [facility] Smoking 05/08/2020 12:00:00 AM EST Never Smoker completed Never S moker eCW1 ([facility]) Smoking 05/08/2020 12:00:00 AM EST Never Smoker completed Never S moker eCW1 ([facility]) Smoking 05/08/2020 12:00:00 AM EST Never Smoker completed Never S moker eCW1 ([facility]) Smoking 05/08/2020 12:00:00 AM EST Never Smoker completed Never S moker eCW1 ([facility]) Smoking 03/27/2020 12:00:00 AM EST Never Smoker completed Never S moker eCW1 ([facility]) Smoking 03/27/2020 12:00:00 AM EST Never Smoker completed Never S moker eCW1 ([facility]) Smoking 03/27/2020 12:00:00 AM EST Never Smoker completed Never S moker eCW1 ([facility]) Smoking 03/27/2020 12:00:00 AM EST Never Smoker completed Never S moker eCW1 ([facility]) Smoking 12/27/2019 12:00:00 AM EDT Never Smoker completed Never S moker eCW1 ([facility]) Smoking 12/27/2019 12:00:00 AM EDT Never Smoker completed Never S moker eCW1 ([facility]) Smoking 12/27/2019 12:00:00 AM EDT Never Smoker completed Never S moker eCW1 ([facility]) Smoking 12/27/2019 12:00:00 AM EDT Never Smoker completed Never S moker eCW1 ([facility]) Smoking 12/27/2019 12:00:00 AM EDT Never Smoker completed Never S moker eCW1 ([facility]) Smoking 12/27/2019 12:00:00 AM EDT Never Smoker completed Never S moker eCW1 ([facility]) Smoking 12/27/2019 12:00:00 AM EDT Never Smoker completed Never S moker eCW1 ([facility]) Smoking 12/27/2019 12:00:00 AM EDT Never Smoker completed Never S moker eCW1 ([facility]) Smoking 12/27/2019 12:00:00 AM EDT Never Smoker completed Never S moker eCW1 ([facility]) Vital Signs ID Date Data Source UNK Name Value Range Interpretation Code Description Data Source(s) Systolic blood pressure 97 mm[Hg] 97 mm[Hg] M EDENT ([facility], ) Diastolic blood pressure 62 mm[Hg] 62 mm[Hg] MEDENT ([facility], ) Heart rate 97 /min 97 /min MEDENT ([facility], ) Body height 67 [in_i] 67 [in_i] MEDENT ([facility], ) 5'7" Body weight 154.12 [lb_av] 154.12 [lb_av] MEDEN T ([facility]) Body mass index (BMI) [Ratio] 24.1 kg/m2 24.1 k g/m2 MEDENT ([facility]) [place] body weight 148 [lb_av] 148 [lb_av] MEDEN T ([facility]) Body weight 69.911 kg 69.911 kg MEDENT ([facility]) Body surface area Derived from formula 1.81 m2 1.81 m2 MEDENT ([facility]) Heart rate 80 /min 80 /min MEDENT ([facility], [facility]) Body height 70 [in_i] 70 [in_i] MEDENT ([facility], [facility]) 5'10" Systolic blood pressure 100 mm[Hg] 100 mm[Hg] M EDENT ([facility], [facility]) Diastolic blood pressure 66 mm[Hg] 66 mm[Hg] MEDENT ([facility], [facility]) Respiratory rate 17 /min 17 /min [facility]) Oxygen saturation in Arterial blood by Pulse oximetry 97 % 97 % MEDENT ([facility], [facility]) Body temperature 98.4 [degF] 98.4 [degF] MEDENT ([facility], [facility]) Body weight 174.00 [lb_av] 174.00 [lb_av] MEDEN T ([facility], [facility]) Body mass index (BMI) [Ratio] 25.0 kg/m2 25.0 k g/m2 MEDENT ([facility], [facility]) Respiratory rate 18 /min 18 /min eCW1 ([facility]) Body temperature 98.2 [degF] 98.2 [degF] eCW1 ( [facility]) Systolic blood pressure 110 mm[Hg] 110 mm[Hg] e CW1 ([facility]) Diastolic blood pressure 62 mm[Hg] 62 mm[Hg] eCW1 ([facility]) Body height 69 [in_i] 69 [in_i] W1 ([facility]) Body mass index (BMI) [Ratio] 23.03 kg/m2 23.03 kg/m2 eCW1 ([facility]) Heart rate 95 /min 95 /min eCW1 ([facility]) Body weight 156 [lb_av] 156 [lb_av] eCW1 ([facility]) Body weight 163 [lb_av] 163 [lb_av] eCW1 ([facility]) Body height 69 [in_i] 69 [in_i] eCW1 ([facility]) Body mass index (BMI) [Ratio] 24.07 kg/m2 24.07 kg/m2 eCW1 ([facility]) Heart rate 109 /min 109 /min eCW1 ([facility]) Respiratory rate 18 /min 18 /min eCW1 ([facility]) Body temperature 97.8 [degF] 97.8 [degF] eCW1 ( [facility]) Systolic blood pressure 114 mm[Hg] 114 mm[Hg] e CW1 ([facility]) Diastolic blood pressure 76 mm[Hg] 76 mm[Hg] eCW1 ([facility]) Diastolic blood pressure 71 mm[Hg] 71 mm[Hg] MEDENT ([facility] [place], [facility]) Systolic blood pressure 114 mm[Hg] 114 mm[Hg] M EDENT ([facility] [place], [facility]) Heart rate 106 /min 106 /min MEDENT ([facility], [facility]) Body weight 174.00 [lb_av] 174.00 [lb_av] MEDEN T ([facility] [place], [facility]) Respiratory rate 15 /min 15 /min MEDENT ( [facility] [place], [facility]) Oxygen saturation in Arterial blood by Pulse oximetry 96 % 96 % MEDENT ([facility] [place], [facility]) Body temperature 98.0 [degF] 98.0 [degF] MEDENT ([facility] [place], [facility]) Body height 70 [in_i] 70 [in_i] MEDENT ([facility] [place], [facility]) 5'10" Body mass index (BMI) [Ratio] 25.0 kg/m2 25.0 k g/m2 MEDENT ([facility], [facility]) Body weight 161.2 [lb_av] 161.2 [lb_av] eCW1 ([facility]) Body height 69 [in_i] 69 [in_i] eCW1 ([facility]) Body mass index (BMI) [Ratio] 23.80 kg/m2 23.80 kg/m2 eCW1 ([facility]) Heart rate 87 /min 87 /min eCW1 ([facility]) Respiratory rate 20 /min 20 /min eCW1 ([facility]) Body temperature 97.8 [degF] 97.8 [degF] eCW1 ( [facility]) Systolic blood pressure 100 mm[Hg] 100 mm[Hg] e CW1 ([facility]) Diastolic blood pressure 62 mm[Hg] 62 mm[Hg] eCW1 ([facility]) Systolic blood pressure 110 mm[Hg] 110 mm[Hg] M EDENT ([facility], ) Diastolic blood pressure 70 mm[Hg] 70 mm[Hg] MEDENT ([facility]) Heart rate 84 /min 84 /[facility], [facility] Oxygen saturation in Arterial blood by Pulse oximetry 95 % 95 % [facility] ([facility]) Body temperature 96.3 [degF] 96.3 [degF] [facility] ([facility], ) Body height 67 [in_i] 67 [in_i] [facility] ([facility], ) 5'7" Body weight 165.00 [lb_av] 165.00 [lb_av] MEDEN T ([facility], ) Body mass index (BMI) [Ratio] 25.8 kg/m2 25.8 k g/m2 [facility] ([facility], ) [place] body weight 148 [lb_av] 148 [lb_av] MEDEN T ([facility], ) Body weight 74.844 kg 74.844 kg [facility] ([facility]) Body surface area Derived from formula 1.86 m2 1.86 m2 [facility] ([facility], ) Body weight 167 [lb_av] 167 [lb_av] eCW1 ([facility]) Body height 69 [in_i] 69 [in_i] eCW1 ([facility]) Body mass index (BMI) [Ratio] 24.66 kg/m2 24.66 kg/m2 eCW1 ([facility]) Heart rate 103 /min 103 /min eCW1 ([facility]) Respiratory rate 18 /min 18 /min eCW1 ([facility]) Body temperature 97.9 [degF] 97.9 [degF] eCW1 ( [facility]) Systolic blood pressure 96 mm[Hg] 96 mm[Hg] e CW1 ([facility]) Diastolic blood pressure 60 mm[Hg] 60 mm[Hg] eCW1 ([facility]) Body weight 169.8 [lb_av] 169.8 [lb_av] eCW1 ([facility]) Body height 69 [in_i] 69 [in_i] eCW1 ([facility]) Body mass index (BMI) [Ratio] 25.07 kg/m2 25.07 kg/m2 eCW1 ([facility]) Heart rate 100 /min 100 /min eCW1 ([facility]) Respiratory rate 18 /min 18 /min eCW1 ([facility]) Body temperature 97.7 [degF] 97.7 [degF] eCW1 ( [facility]) Systolic blood pressure 119 mm[Hg] 119 mm[Hg] e CW1 ([facility]) Diastolic blood pressure 77 mm[Hg] 77 mm[Hg] eCW1 ([facility]) ID Date Data Source [id number] 08/02/2020 09:18:03 AM [facility] Name Value Range Interpretation Code Description Data Source(s) WEIGHT RECORDED [address] [facility] Body height Measured 70 in 70 in [facility] ID Date Data Source [id number] 06/25/2020 04:50:32 PM [facility] Name Value Range Interpretation Code Description Data Source(s) WEIGHT RECORDED 163.[address] [facility] TRANSFER FROM [facility] Patient Treatment Plan of Care Planned Activity Planned Date Details Description Data Source (s) Cyanocobalamin 500 MCG 01/29/2021 12:00:00 AM EST eCW1 ([facility]) Carpal Tunnel Wrist Deluxe - 07/24/2020 12:00:00 AM EDT eCW1 ([facility]) Carpal Tunnel Wrist Deluxe - 07/24/2020 12:00:00 AM EDT eCW1 ([facility]) Carpal Tunnel Wrist Deluxe - 07/24/2020 12:00:00 AM EDT eCW1 ([facility]) Carpal Tunnel Wrist Deluxe - 07/24/2020 12:00:00 AM EDT eCW1 ([facility]) Carpal Tunnel Wrist Deluxe - 07/24/2020 12:00:00 AM EDT eCW1 ([facility]) Carpal Tunnel Wrist Deluxe - 07/24/2020 12:00:00 AM EDT eCW1 ([facility]) Carpal Tunnel Wrist Deluxe - 07/24/2020 12:00:00 AM EDT eCW1 ([facility]) Carpal Tunnel Wrist Deluxe - 07/24/2020 12:00:00 AM EDT eCW1 ([facility]) Carpal Tunnel Wrist Deluxe - 07/24/2020 12:00:00 AM EDT eCW1 ([facility]) Carpal Tunnel Wrist Deluxe - 07/24/2020 12:00:00 AM EDT eCW1 ([facility]) Carpal Tunnel Wrist Deluxe - 07/24/2020 12:00:00 AM EDT eCW1 ([facility]) Carpal Tunnel Wrist Deluxe - 07/24/2020 12:00:00 AM EDT eCW1 ([facility]) Carpal Tunnel Wrist Deluxe - 07/24/2020 12:00:00 AM EDT eCW1 ([facility]) Proctosol HC 2.5 % 07/12/2020 12:00:00 AM EDT eCW1 ([facility]) May Have - 06/25/2020 12:00:00 AM EDT e CW1 ([facility]) May Have - 06/25/2020 12:00:00 AM EDT e CW1 ([facility]) May Have - 06/25/2020 12:00:00 AM EDT e CW1 ([facility]) May Have - 06/25/2020 12:00:00 AM EDT e CW1 ([facility]) May Have - 06/25/2020 12:00:00 AM EDT e CW1 ([facility]) Tamsulosin hydrochloride 0.4 MG Oral Capsule 06/19/2020 12:00:00 AM [facility] Sertraline 100 MG Oral Tablet 06/19/2020 12:00:00 AM [facility] Sertraline 100 MG Oral Tablet 06/19/2020 12:00:00 AM [facility] Tamsulosin hydrochloride 0.4 MG Oral Capsule 06/19/2020 12:00:00 AM [facility] POLYETHYLENE GLYCOL 3350 142 MG/ML Oral Solution 06/18/2020 09:00:0 0 PM [facility] Cholecalciferol 2000 UNT Oral Tablet 06/18/2020 12:00:00 AM [facility] buspirone hydrochloride 10 MG Oral Tablet 06/18/2020 12:00:00 AM [facility] buspirone hydrochloride 10 MG Oral Tablet 06/18/2020 12:00:00 AM [facility] Acetaminophen 325 MG Oral Tablet 06/18/2020 12:00:00 AM [facility] Oxycodone Hydrochloride 5 MG Oral Tablet 06/18/2020 12:00:00 AM [facility] Methocarbamol 500 MG Oral Tablet 06/18/2020 12:00:00 AM [facility] Acetaminophen 325 MG Oral Tablet 06/18/2020 12:00:00 AM [facility] Cholecalciferol 2000 UNT Oral Tablet 06/18/2020 12:00:00 AM [facility] Oxycodone Hydrochloride 5 MG Oral Tablet 06/18/2020 12:00:00 AM [facility] Methocarbamol 500 MG Oral Tablet 06/18/2020 12:00:00 AM [facility] Acetaminophen 325 MG Oral Tablet 06/18/2020 12:00:00 AM [facility] Methocarbamol 500 MG Oral Tablet 06/18/2020 12:00:00 AM [facility] Cholecalciferol 2000 UNT Oral Tablet 06/18/2020 12:00:00 AM [facility] Oxybutynin chloride 5 MG Oral Tablet 06/18/2020 12:00:00 AM [facility] Oxycodone Hydrochloride 5 MG Oral Tablet 06/18/2020 12:00:00 AM [facility] Acetaminophen 325 MG Oral Tablet 06/18/2020 12:00:00 AM [facility] fentaNYL (SUBLIMAZE) 100 MCG/2ML (PF) injection 06/15/2020 01:28:08 AM [facility] Misc. Devices (DURABLE MEDICAL EQUIPMENT SEE SIG) XX M ISC 06/15/2020 12:00:00 AM [facility] May Have - 04/03/2020 12:00:00 AM EST e CW1 ([facility]) May Have - 04/03/2020 12:00:00 AM EST e CW1 ([facility]) May Have - 04/03/2020 12:00:00 AM EST e CW1 ([facility]) May Have - 04/03/2020 12:00:00 AM EST e CW1 ([facility]) May Have - 04/03/2020 12:00:00 AM EST e CW1 ([facility]) May Have - 04/03/2020 12:00:00 AM EST e CW1 ([facility]) Tamsulosin hydrochloride 0.4 MG Oral Capsule [facility] Sertraline 100 MG Oral Tablet [facility] buspirone hydrochloride 10 MG Oral Tablet [facility]
--- NOTE | 2021-02-14 14:32 | ROOR ---
Patient Name: Sreekanth Silverio Procedure Date: 02/14/2021 2:07 PM Date of : 1950 Age: 70 Room: [facility] Gender: Male Note Status: Finalized Procedure: Colonoscopy Indications: Screening for colorectal malignant neoplasm Providers: Juma Galvan Jr, MD Referring MD: Fabián Roberts MD Requesting Provider: Medicines: Propofol per Anesthesia Complications: No immediate complications. Procedure: Pre-Anesthesia Assessment: - Prior to the procedure, a History and Physical was performed, and patient medications and allergies were reviewed. The patient is competent. The risks and benefits of the procedure and the sedation options and risks were discussed with the patient. All questions were answered and informed consent was obtained. Patient identification and proposed procedure were verified by the physician and the nurse in the pre-procedure area and in the procedure room. Mental Status Examination: alert and oriented. Airway Examination: normal oropharyngeal airway and neck mobility. Respiratory Examination: clear to auscultation. CV Examination: normal. ASA Grade Assessment: II - A patient with mild systemic disease. After reviewing the risks and benefits, the patient was deemed in satisfactory condition to undergo the procedure. The anesthesia plan was to use moderate sedation / analgesia (conscious sedation). Immediately prior to administration of medications, the patient was re-assessed for adequacy to receive sedatives. The heart rate, respiratory rate, oxygen saturations, blood pressure, adequacy of pulmonary ventilation, and response to care were monitored throughout the procedure. The physical status of the patient was re-assessed after the procedure. The Colonoscope was introduced through the anus and advanced to the cecum, identified by appendiceal orifice and ileocecal valve. The colonoscopy was performed without difficulty. The patient tolerated the procedure well. The quality of the bowel preparation was adequate. Findings: The rectum, recto-sigmoid colon, sigmoid colon, descending colon, transverse colon, ascending colon, cecum, appendiceal orifice and ileocecal valve appeared normal. Impression: - The rectum, recto-sigmoid colon, sigmoid colon, descending colon, transverse colon, ascending colon, cecum, appendiceal orifice and ileocecal valve are normal. - No specimens collected. Recommendation: - Discharge patient to home (ambulatory). - Repeat colonoscopy in 10 years for screening purposes. Procedure Code(s): --- Professional --- 86985, Colonoscopy, flexible; diagnostic, including collection of specimen(s) by brushing or washing, when performed (separate procedure) Diagnosis Code(s): --- Professional --- Z12.11, Encounter for screening for malignant neoplasm of colon CPT copyright 2019 [employer]. All rights reserved. The codes documented in this report are preliminary and upon engraver flatware review may be revised to meet current compliance requirements. Juma Galvan MD Juma Galvan Jr, MD 02/14/2021 2:32:46 PM Electronically signed by Juma Galvan Jr, MD Number of Addenda: 0 Note Initiated On: 02/14/2021 2:07 PM Estimated Blood Loss: Estimated blood loss: none.
[2021-02-14 14:57] VITALS: BP 108/59
== END 2021-02-14 15:05 | disposition home or self-care (01) ==
LOC: M OPP 12:20
PROVIDERS: ATTEND Surgery
DX: Z12.11 Encounter for screening for malignant neoplasm of colon (principal); Z79.82 Long term (current) use of aspirin; Z79.899 Other long term (current) drug therapy; Z88.8 Allergy status to other drugs, medicaments and biological substances

== ENCOUNTER 2021-05-06 13:07 | Emergency (ER) | payer MEDICARE, MEDICAID ==
[~2021-05-06 13:07] MED LIST changes: -LIDOCAINE 2% 100MG/5ML SDV (FOR ANES.) As Ordered ONE; -NS 1,000 ML IV ONE; -propofoL 200 MG/20 ML VIAL As Ordered ONE
[2021-05-06 15:00] VITALS: BP 119/76
== END 2021-05-06 15:15 | disposition home or self-care (01) ==
LOC: M ED 13:07 → EDBD 13:07 → M ED 15:15
DX: J44.9 Chronic obstructive pulmonary disease, unspecified (principal); Z86.16 Personal history of COVID-19; E78.5 Hyperlipidemia, unspecified; N40.0 Benign prostatic hyperplasia without lower urinary tract symptoms; G47.33 Obstructive sleep apnea (adult) (pediatric); Z99.89 Dependence on other enabling machines and devices; F70 Mild intellectual disabilities; F33.9 Major depressive disorder, recurrent, unspecified; Z87.891 Personal history of nicotine dependence; Z79.899 Other long term (current) drug therapy; Z79.82 Long term (current) use of aspirin

== ENCOUNTER 2021-08-09 09:14 | Emergency (ER) | payer MEDICARE, MEDICAID ==
[~2021-08-09 09:14] MED LIST changes: -wheelchair
[2021-08-09] MEDS ORDERED: ACETAMINOPHEN 325 MG TAB PO ONE (09:55)
[2021-08-09 10:42] LABS: BASO % 0.3 % (0.0-1.0); EOS % 0.2 % (0.0-3.0); HEMATOCRIT 41.8 % (42.0-52.0); HEMOGLOBIN 14.4 g/dl (13.5-17.5); LYMPH % 9.5 % (24.0-44.0); MEAN CORPUSCULAR HGB CONC 34.4 g/dl (32.0-36.5); MEAN CORPUSCULAR VOLUME 89.9 fl (80.0-96.0); MONO # 1.3 10^3/uL (0.0-0.8); MONO % 12.5 % (2.0-8.0); NEUTROPHILS # 8.1 10^3/uL (1.5-8.5); NEUTROPHILS % 77.2 % (36.0-66.0); PLATELET COUNT, AUTOMATED 233 10^3/uL (150-450); RED BLOOD COUNT 4.65 10^6/uL (4.30-6.10); WHITE BLOOD COUNT 10.4 10^3/uL (4.0-10.0)
[2021-08-09 10:51] LABS: INR 1.09; PROTHROMBIN TIME 14.5 SECONDS (12.7-14.5)
[2021-08-09 10:52] LABS: PARTIAL THROMBOPLASTIN TIME 30.7 SECONDS (25.9-37.0)
[2021-08-09 11:04] LABS: BLOOD UREA NITROGEN 14 MG/DL (7-18); C REACTIVE PROTEIN QUANTITATIV 1.72 MG/DL (0.00-0.30); CALCIUM LEVEL 8.7 MG/DL (8.8-10.2); CARBON DIOXIDE LEVEL 27 MEQ/L (21-32); CHLORIDE LEVEL 108 MEQ/L (98-107); CREATININE FOR GFR 0.65 MG/DL (0.70-1.30); GLOMERULAR FILTRATION RATE > 60.0 (>42); GLUCOSE, FASTING 100 MG/DL (70-100); POTASSIUM SERUM 4.1 MEQ/L (3.5-5.1); SODIUM LEVEL 138 MEQ/L (136-145)
[2021-08-09 12:28] LABS: ERYTHROCYTE SEDIMENTATION RATE 8 mm/hr (0-20)
[2021-08-09] MEDS ORDERED: wheelchair (12:38)
[2021-08-09 13:07] VITALS: BP 137/72
== END 2021-08-09 13:15 | disposition home or self-care (01) ==
LOC: M ED 09:14
DX: M17.11 Unilateral primary osteoarthritis, right knee (principal); R22.41 Localized swelling, mass and lump, right lower limb; E53.8 Deficiency of other specified B group vitamins; D69.6 Thrombocytopenia, unspecified; R62.50 Unspecified lack of expected normal physiological development in childhood; R27.0 Ataxia, unspecified; M47.9 Spondylosis, unspecified; Z79.899 Other long term (current) drug therapy; Z79.82 Long term (current) use of aspirin

== ENCOUNTER → 2021-08-09 | Outpatient (CLI) | payer MEDICARE, MEDICAID ==
[~2021-08-09] MED LIST changes: -D31000TA2 PO; +VITA100093 PO; +wheelchair
== END ==
LOC: M WUC 14:26
PROVIDERS: ATTEND Physician Assistant
DX: M85.9 Disorder of bone density and structure, unspecified (principal); S30.0XXA Contusion of lower back and pelvis, initial encounter; X58.XXXA Exposure to other specified factors, initial encounter; Y92.89 Other specified places as the place of occurrence of the external cause

== ENCOUNTER → 2021-08-16 | Outpatient (CLI) | payer MEDICARE, MEDICAID ==
[~2021-08-16] MED LIST changes: +wheelchair
[2021-08-16 12:11] LABS: BASO # 0.1 10^3/uL (0.0-0.2); BASO % 0.7 % (0.0-1.0); EOS # 0.3 10^3/uL (0.0-0.5); EOS % 3.6 % (0.0-3.0); HEMATOCRIT 43.3 % (42.0-52.0); HEMOGLOBIN 14.5 g/dl (13.5-17.5); LYMPH # 1.7 10^3/uL (1.5-5.0); LYMPH % 23.2 % (24.0-44.0); MEAN CORPUSCULAR HEMOGLOBIN 30.2 pg (27.0-33.0); MEAN CORPUSCULAR HGB CONC 33.5 g/dl (32.0-36.5); MEAN CORPUSCULAR VOLUME 90.2 fl (80.0-96.0); MONO # 0.9 10^3/uL (0.0-0.8); MONO % 11.9 % (2.0-8.0); NEUTROPHILS # 4.5 10^3/uL (1.5-8.5); NEUTROPHILS % 60.2 % (36.0-66.0); PLATELET COUNT, AUTOMATED 309 10^3/uL (150-450); WHITE BLOOD COUNT 7.5 10^3/uL (4.0-10.0)
[2021-08-16 14:23] LABS: ALBUMIN 3.3 GM/DL (3.2-5.2); ALT/SGPT 23 U/L (12-78); BILIRUBIN,TOTAL 0.7 MG/DL (0.2-1.0); BLOOD UREA NITROGEN 16 MG/DL (7-18); CALCIUM LEVEL 8.6 MG/DL (8.8-10.2); CARBON DIOXIDE LEVEL 29 MEQ/L (21-32); CHLORIDE LEVEL 107 MEQ/L (98-107); CHOLESTEROL LEVEL 127 MG/DL (<200); CHOLESTEROL RISK RATIO 2.309 (<5); CREATININE FOR GFR 0.67 MG/DL (0.70-1.30); FREE T4 0.94 NG/DL (0.76-1.46); GLOMERULAR FILTRATION RATE > 60.0 (>42); GLUCOSE, FASTING 72 MG/DL (70-100); HDL CHOLESTEROL 55 MG/DL (>40); LDL CHOLESTEROL 63 MG/DL (<100); NON-HDL-C 72 MG/DL; POTASSIUM SERUM 4.9 MEQ/L (3.5-5.1); PTH INTACT 40.1 PG/ML (18.5-88.0); SODIUM LEVEL 143 MEQ/L (136-145); TOTAL 25(OH) VITAMIN D 56.2 NG/ML (30.0-100.0); TOTAL PROTEIN 6.8 GM/DL (6.4-8.2); TRIGLYCERIDES LEVEL 43 MG/DL (<150); VITAMIN B12 LEVEL 1321 PG/ML (247-911)
== END ==
LOC: M WUC 08:43
PROVIDERS: ATTEND Physician Assistant Medical
DX: E55.9 Vitamin D deficiency, unspecified (principal); E78.5 Hyperlipidemia, unspecified; F41.9 Anxiety disorder, unspecified; D69.6 Thrombocytopenia, unspecified; E53.8 Deficiency of other specified B group vitamins; Z79.899 Other long term (current) drug therapy

== ENCOUNTER → 2021-08-29 | Outpatient (CLI) | payer MEDICARE, MEDICAID | LOC: M SOG 08:27 | PROVIDERS: ATTEND Orthopaedic Surgery Adult Reconstructive Orthopaedic Surgery | DX: M17.0 Bilateral primary osteoarthritis of knee (principal); M25.562 Pain in left knee ==

== ENCOUNTER 2021-09-13 01:04 | Emergency (ER) | payer MEDICARE, MEDICAID ==
[~2021-09-13] VITALS: Ht 170.2 cm; Wt 70.0 kg
[2021-09-13] MEDS ORDERED: LIDOCAINE 5% (LIDODERM) PATCH TD ONE (05:55)
[2021-09-13] MEDS ORDERED: traMADol 50 MG TAB PO ONE (05:55)
[2021-09-13] MEDS ORDERED: KETOROLAC 30 MG/ML 1ML VIAL IM ONE (07:00)
[2021-09-13 07:54] LABS: RSV AMPLIFICATION NEGATIVE (NEGATIVE)
[2021-09-13 08:22] LABS: BASO % 0.3 % (0.0-1.0); EOS % 0.1 % (0.0-3.0); HEMATOCRIT 42.8 % (42.0-52.0); HEMOGLOBIN 14.9 g/dl (13.5-17.5); LYMPH # 1.1 10^3/uL (1.5-5.0); LYMPH % 9.3 % (24.0-44.0); MEAN CORPUSCULAR HGB CONC 34.8 g/dl (32.0-36.5); MEAN CORPUSCULAR VOLUME 89.2 fl (80.0-96.0); MONO # 0.9 10^3/uL (0.0-0.8); MONO % 7.4 % (2.0-8.0); NEUTROPHILS % 82.4 % (36.0-66.0); PLATELET COUNT, AUTOMATED 230 10^3/uL (150-450); WHITE BLOOD COUNT 12.1 10^3/uL (4.0-10.0)
[2021-09-13 08:51] LABS: ALBUMIN 3.4 GM/DL (3.2-5.2); ALT/SGPT 22 U/L (12-78); BILIRUBIN,TOTAL 0.5 MG/DL (0.2-1.0); BLOOD UREA NITROGEN 14 MG/DL (7-18); CALCIUM LEVEL 8.6 MG/DL (8.8-10.2); CARBON DIOXIDE LEVEL 24 MEQ/L (21-32); CHLORIDE LEVEL 109 MEQ/L (98-107); GLOMERULAR FILTRATION RATE > 60.0 (>42); GLUCOSE, FASTING 107 MG/DL (70-100); MAGNESIUM LEVEL 2.1 MG/DL (1.8-2.4); POTASSIUM SERUM 4.2 MEQ/L (3.5-5.1); SODIUM LEVEL 140 MEQ/L (136-145); TOTAL PROTEIN 6.6 GM/DL (6.4-8.2)
[2021-09-13 09:30] VITALS: BP 145/72
[2021-09-13] MEDS ORDERED: KETO10TAB PO (09:39)
[2021-09-13] MEDS ORDERED: LIDO5DIS41 TD (09:39)
[2021-09-13] MEDS ORDERED: **NOTE PATIENT COMMENT** MISC XX SCH (21:00)
== END 2021-09-13 10:09 | disposition home or self-care (01) ==
LOC: M ED 01:04
DX: S22.42XA Multiple fractures of ribs, left side, initial encounter for closed fracture (principal); W06.XXXA Fall from bed, initial encounter; Y92.009 Unspecified place in unspecified non-institutional (private) residence as the place of occurrence of the external cause; Y93.89 Activity, other specified; Y99.8 Other external cause status; Z79.899 Other long term (current) drug therapy
CPT/HCPCS: 71101; 71250; 80053; 83735; 85025; 87631; 94010; 96372; 99285; J1885

== ENCOUNTER → 2022-01-16 | Outpatient (CLI) | payer MEDICARE, MEDICAID ==
[~2022-01-16] MED LIST changes: +LIDO5DIS41 TD; +SIMV-252 PO; -ZOCO10TA PO
== END ==
LOC: M WUC 09:02
PROVIDERS: ATTEND Physician Assistant
DX: Z12.5 Encounter for screening for malignant neoplasm of prostate (principal)

== ENCOUNTER → 2022-01-16 | Outpatient (CLI) | payer MEDICARE, MEDICAID ==
[2022-01-16 12:16] LABS: BASO # 0.1 10^3/uL (0.0-0.2); BASO % 0.6 % (0.0-1.0); EOS # 0.4 10^3/uL (0.0-0.5); EOS % 5.6 % (0.0-3.0); HEMATOCRIT 44.4 % (42.0-52.0); HEMOGLOBIN 14.8 g/dl (13.5-17.5); LYMPH # 1.6 10^3/uL (1.5-5.0); LYMPH % 21.1 % (24.0-44.0); MEAN CORPUSCULAR HEMOGLOBIN 30.7 pg (27.0-33.0); MEAN CORPUSCULAR HGB CONC 33.3 g/dl (32.0-36.5); MEAN CORPUSCULAR VOLUME 92.1 fl (80.0-96.0); MONO # 0.9 10^3/uL (0.0-0.8); MONO % 11.2 % (2.0-8.0); NEUTROPHILS # 4.8 10^3/uL (1.5-8.5); NEUTROPHILS % 61.4 % (36.0-66.0); PLATELET COUNT, AUTOMATED 275 10^3/uL (150-450); RED BLOOD COUNT 4.82 10^6/uL (4.30-6.10); WHITE BLOOD COUNT 7.8 10^3/uL (4.0-10.0)
[2022-01-16 13:19] LABS: ALBUMIN 3.6 GM/DL (3.2-5.2); ALT/SGPT 20 U/L (12-78); BILIRUBIN,TOTAL 0.5 MG/DL (0.2-1.0); BLOOD UREA NITROGEN 18 MG/DL (7-18); CALCIUM LEVEL 8.9 MG/DL (8.8-10.2); CARBON DIOXIDE LEVEL 27 MEQ/L (21-32); CHLORIDE LEVEL 107 MEQ/L (98-107); CREATININE FOR GFR 0.69 MG/DL (0.70-1.30); FERRITIN 110 NG/ML (26-388); GLOMERULAR FILTRATION RATE > 60.0 (>42); GLUCOSE, FASTING 78 MG/DL (70-100); POTASSIUM SERUM 3.8 MEQ/L (3.5-5.1); SODIUM LEVEL 140 MEQ/L (136-145); TOTAL PROTEIN 6.9 GM/DL (6.4-8.2); URIC ACID 2.8 MG/DL (3.5-7.2)
[2022-01-16 18:52] LABS: VITAMIN B12 LEVEL 646 PG/ML (247-911)
== END ==
LOC: M WUC 08:59
PROVIDERS: ATTEND Family Medicine
DX: N20.0 Calculus of kidney (principal); D69.6 Thrombocytopenia, unspecified; E53.8 Deficiency of other specified B group vitamins; Z12.5 Encounter for screening for malignant neoplasm of prostate
CPT/HCPCS: 36415; 80053; 82607; 82728; 84550; 85025; G0103

== ENCOUNTER → 2022-02-17 | Outpatient (CLI) | payer MEDICARE, MEDICAID | LOC: M WUC 15:08 | PROVIDERS: ATTEND Family Medicine | DX: M47.812 Spondylosis without myelopathy or radiculopathy, cervical region (principal); M50.321 Other cervical disc degeneration at C4-C5 level ==

== ENCOUNTER → 2022-04-25 | Outpatient (CLI) | payer MEDICARE, MEDICAID ==
[2022-04-25 11:46] LABS: ALKALINE PHOSPHATASE 90 U/L (46-116); ALT/SGPT 20 U/L (7.0-40); AST/SGOT < 8 U/L (<34); BILIRUBIN,TOTAL 0.3 MG/DL (0.3-1.2); BLOOD UREA NITROGEN 17 MG/DL (9-23); CALCIUM LEVEL 8.8 MG/DL (8.3-10.6); CARBON DIOXIDE LEVEL 29 MMOL/L (20-31); CHLORIDE LEVEL 106 MMOL/L (98-107); CREATININE FOR GFR 0.62 MG/DL (0.70-1.30); GLOMERULAR FILTRATION RATE > 60.0 (>42); GLUCOSE, FASTING 85 MG/DL (74-106); POTASSIUM SERUM 4.4 MMOL/L (3.5-5.1); PTH INTACT 31.3 PG/ML (18.5-88.0); SODIUM LEVEL 140 MMOL/L (136-145); TRIGLYCERIDES LEVEL 44 MG/DL (<150)
[2022-04-25 11:47] LABS: ALBUMIN 3.2 G/DL (3.2-5.2); CHOLESTEROL LEVEL 116 MG/DL (<200); CHOLESTEROL RISK RATIO 2.26 (<5); HDL CHOLESTEROL 51.3 MG/DL (>40); LDL CHOLESTEROL 55.9 MG/DL (<100); NON-HDL-C 65 MG/DL; TOTAL PROTEIN 6.4 G/DL (5.7-8.2)
[2022-04-25 11:48] LABS: TOTAL 25(OH) VITAMIN D 77.1 NG/ML (20.0-100.0)
[2022-04-25 11:49] LABS: BASO % 0.5 % (0.0-1.0); EOS # 0.2 10^3/uL (0.0-0.5); HEMATOCRIT 35.1 % (42.0-52.0); HEMOGLOBIN 11.5 g/dl (13.5-17.5); LYMPH # 1.5 10^3/uL (1.5-5.0); LYMPH % 18.3 % (24.0-44.0); MEAN CORPUSCULAR HEMOGLOBIN 28.5 pg (27.0-33.0); MEAN CORPUSCULAR HGB CONC 32.8 g/dl (32.0-36.5); MEAN CORPUSCULAR VOLUME 87.1 fl (80.0-96.0); MONO # 0.7 10^3/uL (0.0-0.8); MONO % 8.8 % (2.0-8.0); NEUTROPHILS # 5.6 10^3/uL (1.5-8.5); NEUTROPHILS % 69.3 % (36.0-66.0); PLATELET COUNT, AUTOMATED 321 10^3/uL (150-450); RED BLOOD COUNT 4.03 10^6/uL (4.30-6.10); WHITE BLOOD COUNT 8.1 10^3/uL (4.0-10.0)
[2022-04-29 10:09] LABS: H PYLORI SERUM QUANT IgG ABY 0.26 (0.00-0.79)
== END ==
LOC: M WUC 08:36
PROVIDERS: ATTEND Family Medicine
DX: E55.9 Vitamin D deficiency, unspecified (principal); E78.5 Hyperlipidemia, unspecified; D69.6 Thrombocytopenia, unspecified; Z79.899 Other long term (current) drug therapy

== ENCOUNTER → 2022-05-06 | Outpatient (CLI) | payer MEDICARE, MEDICAID ==
[2022-05-06 10:10] LABS: BASO % 0.4 % (0.0-1.0); EOS # 0.2 10^3/uL (0.0-0.5); EOS % 2.6 % (0.0-3.0); HEMATOCRIT 25.4 % (42.0-52.0); HEMOGLOBIN 8.1 g/dl (13.5-17.5); LYMPH # 1.3 10^3/uL (1.5-5.0); LYMPH % 15.9 % (24.0-44.0); MEAN CORPUSCULAR HEMOGLOBIN 27.8 pg (27.0-33.0); MEAN CORPUSCULAR HGB CONC 31.9 g/dl (32.0-36.5); MEAN CORPUSCULAR VOLUME 87.3 fl (80.0-96.0); MONO # 0.9 10^3/uL (0.0-0.8); MONO % 11.1 % (2.0-8.0); NEUTROPHILS # 5.8 10^3/uL (1.5-8.5); NEUTROPHILS % 69.9 % (36.0-66.0); PLATELET COUNT, AUTOMATED 351 10^3/uL (150-450); RED BLOOD COUNT 2.91 10^6/uL (4.30-6.10); WHITE BLOOD COUNT 8.3 10^3/uL (4.0-10.0)
[2022-05-06 10:46] LABS: FERRITIN 8.6 NG/ML (10.5-307.3)
== END ==
LOC: M WUC 08:16
PROVIDERS: ATTEND Family Medicine
DX: D50.9 Iron deficiency anemia, unspecified (principal)

== ENCOUNTER → 2022-05-07 | Outpatient (CLI) | payer MEDICARE, MEDICAID ==
[2022-05-07 16:35] LABS: BASO % 0.4 % (0.0-1.0); EOS # 0.3 10^3/uL (0.0-0.5); HEMATOCRIT 25.9 % (42.0-52.0); HEMOGLOBIN 8.2 g/dl (13.5-17.5); LYMPH # 1.4 10^3/uL (1.5-5.0); LYMPH % 14.3 % (24.0-44.0); MEAN CORPUSCULAR HEMOGLOBIN 27.6 pg (27.0-33.0); MEAN CORPUSCULAR HGB CONC 31.7 g/dl (32.0-36.5); MEAN CORPUSCULAR VOLUME 87.2 fl (80.0-96.0); MONO # 1.2 10^3/uL (0.0-0.8); MONO % 12.1 % (2.0-8.0); NEUTROPHILS % 69.8 % (36.0-66.0); PLATELET COUNT, AUTOMATED 383 10^3/uL (150-450); RED BLOOD COUNT 2.97 10^6/uL (4.30-6.10)
[2022-05-09 16:09] LABS: H PYLORI SERUM QUANT IGA <9.0 units (0.0-8.9); H PYLORI SERUM QUANT IgG ABY 0.24 (0.00-0.79)
== END ==
LOC: M WUC 12:49
PROVIDERS: ATTEND Family Medicine
DX: D50.9 Iron deficiency anemia, unspecified (principal)

== ENCOUNTER 2022-05-08 09:47 | Outpatient (CLI) | payer MEDICARE, MEDICAID ==
[~2022-05-08] VITALS: Ht 170.2 cm; Wt 70.0 kg
[2022-05-08 10:02] VITALS: BP 88/52
[2022-05-08 12:05] VITALS: BP 96/66
[2022-05-08 13:39] VITALS: BP 120/71
[2022-05-08 15:25] VITALS: BP 125/68
== END 2022-05-08 15:30 ==
LOC: M INFU 09:47
PROVIDERS: ATTEND Physician Assistant Medical
DX: D50.9 Iron deficiency anemia, unspecified (principal)
CPT/HCPCS: 36430; 36592; 86850; 86900; 86901; 86920; P9016

== ENCOUNTER → 2022-05-16 | Outpatient (CLI) | payer MEDICARE, MEDICAID ==
[2022-05-16 14:42] LABS: FERRITIN 23.1 NG/ML (10.5-307.3)
[2022-05-16 14:43] LABS: ALBUMIN 2.9 G/DL (3.2-5.2); ALKALINE PHOSPHATASE 82 U/L (46-116); ALT/SGPT 21 U/L (7.0-40); AST/SGOT 16 U/L (<34); BILIRUBIN,TOTAL 0.3 MG/DL (0.3-1.2); BLOOD UREA NITROGEN 17 MG/DL (9-23); CALCIUM LEVEL 8.7 MG/DL (8.3-10.6); CARBON DIOXIDE LEVEL 32 MMOL/L (20-31); CHLORIDE LEVEL 103 MMOL/L (98-107); GLOMERULAR FILTRATION RATE > 60.0 (>42); GLUCOSE, FASTING 100 MG/DL (74-106); IRON (FE) 15 UG/DL (65-175); PERCENT SATURATION 4.4 % (19.7-50.0); POTASSIUM SERUM 4.1 MMOL/L (3.5-5.1); SODIUM LEVEL 138 MMOL/L (136-145); TOTAL IRON BINDING CAPACITY 343 UG/DL (250-425); TOTAL PROTEIN 6.5 G/DL (5.7-8.2)
[2022-05-16 15:02] LABS: BASO % 0.5 % (0.0-1.0); EOS # 0.2 10^3/uL (0.0-0.5); EOS % 2.7 % (0.0-3.0); HEMATOCRIT 31.2 % (42.0-52.0); HEMOGLOBIN 9.9 g/dl (13.5-17.5); LYMPH # 1.3 10^3/uL (1.5-5.0); LYMPH % 15.5 % (24.0-44.0); MEAN CORPUSCULAR HEMOGLOBIN 26.5 pg (27.0-33.0); MEAN CORPUSCULAR HGB CONC 31.7 g/dl (32.0-36.5); MEAN CORPUSCULAR VOLUME 83.6 fl (80.0-96.0); MONO # 0.9 10^3/uL (0.0-0.8); MONO % 10.5 % (2.0-8.0); NEUTROPHILS % 70.2 % (36.0-66.0); PLATELET COUNT, AUTOMATED 470 10^3/uL (150-450); RED BLOOD COUNT 3.73 10^6/uL (4.30-6.10); WHITE BLOOD COUNT 8.5 10^3/uL (4.0-10.0)
== END ==
LOC: M PLALAB 10:35
PROVIDERS: ATTEND Physician Assistant
DX: D50.9 Iron deficiency anemia, unspecified (principal)

== ENCOUNTER → 2022-05-26 | Outpatient (CLI) | payer MEDICARE, MEDICAID ==
[2022-05-26 14:19] LABS: ALBUMIN 3.1 G/DL (3.2-5.2); BLOOD UREA NITROGEN 24 MG/DL (9-23); CALCIUM LEVEL 8.9 MG/DL (8.3-10.6); CARBON DIOXIDE LEVEL 30 MMOL/L (20-31); CHLORIDE LEVEL 105 MMOL/L (98-107); GLOMERULAR FILTRATION RATE > 60.0 (>42); GLUCOSE, FASTING 80 MG/DL (74-106); IRON (FE) 107 UG/DL (65-175); PERCENT SATURATION 27.4 % (19.7-50.0); PHOSPHORUS LEVEL 4.5 MG/DL (2.4-5.1); POTASSIUM SERUM 4.6 MMOL/L (3.5-5.1); SODIUM LEVEL 140 MMOL/L (136-145); TOTAL IRON BINDING CAPACITY 391 UG/DL (250-425)
[2022-05-26 14:23] LABS: FERRITIN 20.2 NG/ML (10.5-307.3)
[2022-05-26 14:31] LABS: BASO # 0.1 10^3/uL (0.0-0.2); BASO % 0.6 % (0.0-1.0); EOS # 0.3 10^3/uL (0.0-0.5); EOS % 3.1 % (0.0-3.0); HEMATOCRIT 33.7 % (42.0-52.0); HEMOGLOBIN 10.3 g/dl (13.5-17.5); LYMPH # 1.6 10^3/uL (1.5-5.0); LYMPH % 18.4 % (24.0-44.0); MEAN CORPUSCULAR HEMOGLOBIN 26.1 pg (27.0-33.0); MEAN CORPUSCULAR HGB CONC 30.6 g/dl (32.0-36.5); MEAN CORPUSCULAR VOLUME 85.5 fl (80.0-96.0); MONO # 1.1 10^3/uL (0.0-0.8); NEUTROPHILS # 5.8 10^3/uL (1.5-8.5); NEUTROPHILS % 65.6 % (36.0-66.0); PLATELET COUNT, AUTOMATED 415 10^3/uL (150-450); RED BLOOD COUNT 3.94 10^6/uL (4.30-6.10); WHITE BLOOD COUNT 8.8 10^3/uL (4.0-10.0)
== END ==
LOC: M WUC 11:50
PROVIDERS: ATTEND Physician Assistant
DX: D50.9 Iron deficiency anemia, unspecified (principal); R63.4 Abnormal weight loss

== ENCOUNTER 2022-06-02 08:15 | Outpatient (CLI) | payer MEDICARE, MEDICAID ==
[~2022-06-02] VITALS: Ht 175.3 cm; Wt 61.2 kg
[2022-06-02 08:15] VITALS: BP 105/50
[~2022-06-02 08:15] MED LIST changes: +ALBUTEROL SULFATE 2.5MG/0.5ML INH NEB SOLN INH PRN; +EPINEPHrine INJ 1 MG/ML 1ML AMP IM PRN; +diphenhydrAMINE 50MG/ML VIAL IV PRN; +methylPREDNISolone 125MG 2ML VIAL IV PRN
[2022-06-02] MEDS ORDERED: IRON SUCROSE 500 MG in NS 250 ML OVER 4 HRS IV ONE (08:30)
[2022-06-02] MEDS ORDERED: NS 1,000 ML IV SCH (08:30)
[2022-06-02 10:00] VITALS: BP 103/53
[2022-06-02 11:00] VITALS: BP 97/55
[2022-06-02 12:00] VITALS: BP 99/52
[2022-06-02 12:30] VITALS: BP 95/51
[2022-06-02 13:05] VITALS: BP 107/60
== END 2022-06-02 13:05 | disposition home or self-care (01) ==
LOC: M INFU 08:15
PROVIDERS: ATTEND Physician Assistant
DX: D50.9 Iron deficiency anemia, unspecified (principal)
CPT/HCPCS: 96365; 96366; J1756

== ENCOUNTER → 2022-06-20 | Outpatient (CLI) | payer MEDICARE, MEDICAID ==
[~2022-06-20] MED LIST changes: -ALBUTEROL SULFATE 2.5MG/0.5ML INH NEB SOLN INH PRN; -EPINEPHrine INJ 1 MG/ML 1ML AMP IM PRN; -diphenhydrAMINE 50MG/ML VIAL IV PRN; -methylPREDNISolone 125MG 2ML VIAL IV PRN
== END ==
LOC: M WUC 08:54
PROVIDERS: ATTEND Physician Assistant
DX: M25.512 Pain in left shoulder (principal); M25.511 Pain in right shoulder; M17.0 Bilateral primary osteoarthritis of knee

== ENCOUNTER → 2022-06-30 | Outpatient (CLI) | payer MEDICARE, MEDICAID ==
[2022-06-30 12:54] LABS: BASO % 0.4 % (0.0-1.0); EOS # 0.3 10^3/uL (0.0-0.5); EOS % 2.5 % (0.0-3.0); HEMATOCRIT 37.2 % (42.0-52.0); HEMOGLOBIN 11.8 g/dl (13.5-17.5); LYMPH # 1.5 10^3/uL (1.5-5.0); LYMPH % 15.3 % (24.0-44.0); MEAN CORPUSCULAR HEMOGLOBIN 27.3 pg (27.0-33.0); MEAN CORPUSCULAR HGB CONC 31.7 g/dl (32.0-36.5); MEAN CORPUSCULAR VOLUME 85.9 fl (80.0-96.0); MONO # 1.2 10^3/uL (0.0-0.8); MONO % 12.5 % (2.0-8.0); NEUTROPHILS # 6.8 10^3/uL (1.5-8.5); PLATELET COUNT, AUTOMATED 287 10^3/uL (150-450); RED BLOOD COUNT 4.33 10^6/uL (4.30-6.10); WHITE BLOOD COUNT 9.9 10^3/uL (4.0-10.0)
== END ==
LOC: M WUC 10:43
PROVIDERS: ATTEND Physician Assistant
DX: D50.9 Iron deficiency anemia, unspecified (principal)

== ENCOUNTER → 2022-07-29 | Outpatient (CLI) | payer MEDICARE, MEDICAID ==
[2022-07-29 14:47] LABS: BASO % 0.3 % (0.0-1.0); EOS # 0.2 10^3/uL (0.0-0.5); EOS % 1.8 % (0.0-3.0); HEMATOCRIT 40.2 % (42.0-52.0); HEMOGLOBIN 12.9 g/dl (13.5-17.5); LYMPH # 1.1 10^3/uL (1.5-5.0); MEAN CORPUSCULAR HEMOGLOBIN 26.9 pg (27.0-33.0); MEAN CORPUSCULAR HGB CONC 32.1 g/dl (32.0-36.5); MEAN CORPUSCULAR VOLUME 83.9 fl (80.0-96.0); MONO % 10.4 % (2.0-8.0); NEUTROPHILS # 7.1 10^3/uL (1.5-8.5); NEUTROPHILS % 75.2 % (36.0-66.0); PLATELET COUNT, AUTOMATED 277 10^3/uL (150-450); RED BLOOD COUNT 4.79 10^6/uL (4.30-6.10); WHITE BLOOD COUNT 9.5 10^3/uL (4.0-10.0)
[2022-07-29 14:48] LABS: LIPASE 26 U/L (12-53)
[2022-07-29 14:51] LABS: ALKALINE PHOSPHATASE 101 U/L (46-116); ALT/SGPT 20 U/L (7.0-40); AST/SGOT 22 U/L (<34); BILIRUBIN,TOTAL 0.4 MG/DL (0.3-1.2); BLOOD UREA NITROGEN 20 MG/DL (9-23); CALCIUM LEVEL 9.1 MG/DL (8.3-10.6); CARBON DIOXIDE LEVEL 28 MMOL/L (20-31); CHLORIDE LEVEL 106 MMOL/L (98-107); CREATININE FOR GFR 0.66 MG/DL (0.70-1.30); GLOMERULAR FILTRATION RATE > 60.0 (>42); GLUCOSE, FASTING 84 MG/DL (74-106); POTASSIUM SERUM 4.4 MMOL/L (3.5-5.1); SODIUM LEVEL 140 MMOL/L (136-145); TOTAL PROTEIN 6.5 G/DL (5.7-8.2)
[2022-07-29 14:52] LABS: FERRITIN 39.1 NG/ML (10.5-307.3)
== END ==
LOC: M PLALAB 11:26
PROVIDERS: ATTEND Physician Assistant
DX: R10.84 Generalized abdominal pain (principal); R19.8 Other specified symptoms and signs involving the digestive system and abdomen; D50.9 Iron deficiency anemia, unspecified

== ENCOUNTER → 2022-08-09 | Outpatient (CLI) | payer MEDICARE, MEDICAID | LOC: M RAD 12:58 | PROVIDERS: ATTEND Physician Assistant | DX: R29.6 Repeated falls (principal); R20.2 Paresthesia of skin; G89.29 Other chronic pain; M54.50 Low back pain, unspecified ==

== ENCOUNTER 2022-08-16 22:27 | Emergency (ER) | payer MEDICARE, MEDICAID ==
[2022-08-16] MEDS ORDERED: LIDOCAINE 2% W/EPINEPHRINE 20ML VIAL **PRES FREE INJ ONE (22:40)
[2022-08-17] MEDS ORDERED: AMPICILLIN SOD/SULBACTAM SOD 3 GM in D5W MINI-BAG PLUS 100 ML IV ONE (01:45)
[2022-08-17 03:25] VITALS: BP 128/68; TEMP 97; O2SAT 97
== END 2022-08-17 03:28 | disposition short-term general hospital (02) ==
LOC: M ED 22:27 → EDBD 22:27 → M ED 08-17 03:28
DX: S02.40DA Maxillary fracture, left side, initial encounter for closed fracture (principal); S02.832A Fracture of medial orbital wall, left side, initial encounter for closed fracture; W19.XXXA Unspecified fall, initial encounter; Y92.89 Other specified places as the place of occurrence of the external cause; Y93.89 Activity, other specified; Y99.8 Other external cause status; Z79.82 Long term (current) use of aspirin; Z79.899 Other long term (current) drug therapy; N40.0 Benign prostatic hyperplasia without lower urinary tract symptoms
CPT/HCPCS: 70450; 70486; 72125; 96365; 96375; 99284; J0295

== ENCOUNTER → 2022-11-21 | Outpatient (CLI) | payer MEDICARE, MEDICAID ==
[~2022-11-21] MED LIST changes: -HM S0.65; +SALI0.6531
== END ==
LOC: M WHC 16:01
PROVIDERS: ATTEND Family Medicine
DX: M85.80 Other specified disorders of bone density and structure, unspecified site (principal)

== ENCOUNTER 2022-11-29 13:19 | Observation (INO) | payer MEDICARE, MEDICAID ==
[~2022-11-29] VITALS: Ht 172.7 cm; Wt 60.1 kg
[2022-11-29] MEDS ORDERED: ONDANSETRON 4MG 2ML VIAL IV ONE (13:55)
[2022-11-29 14:03] LABS: BASO # 0.1 10^3/uL (0.0-0.2); BASO % 0.6 % (0.0-1.0); EOS # 0.1 10^3/uL (0.0-0.5); EOS % 0.7 % (0.0-3.0); HEMATOCRIT 42.6 % (42.0-52.0); HEMOGLOBIN 14.5 g/dl (13.5-17.5); LYMPH # 1.8 10^3/uL (1.5-5.0); LYMPH % 16.9 % (24.0-44.0); MEAN CORPUSCULAR VOLUME 85.2 fl (80.0-96.0); MONO # 0.7 10^3/uL (0.0-0.8); MONO % 6.8 % (2.0-8.0); NEUTROPHILS # 8.1 10^3/uL (1.5-8.5); NEUTROPHILS % 74.6 % (36.0-66.0); PLATELET COUNT, AUTOMATED 286 10^3/uL (150-450); WHITE BLOOD COUNT 10.8 10^3/uL (4.0-10.0)
[2022-11-29] MEDS ORDERED: ISOVUE-370 76% 100ML VIAL As Ordered ONE (14:16)
[2022-11-29 14:29] LABS: ALBUMIN 3.5 G/DL (3.2-5.2); BILIRUBIN,DIRECT 0.2 MG/DL (<0.4); BILIRUBIN,TOTAL 0.5 MG/DL (0.3-1.2); TOTAL PROTEIN 7.2 G/DL (5.7-8.2)
[2022-11-29 14:30] LABS: THYROID STIMULATING HORMONE 3.678 uIU/ML (0.55-4.78)
[2022-11-29 14:31] LABS: FREE T4 1.16 NG/DL (0.89-1.76)
[2022-11-29 14:36] LABS: RSV AMPLIFICATION NEGATIVE (NEGATIVE)
[2022-11-29] MEDS ORDERED: NS 1,000 ML IV ONE (15:00)
[2022-11-29] MEDS ORDERED: PANT40TA29 PO (16:50)
[2022-11-29] MEDS ORDERED: ALUM320S3 PO (16:50)
[2022-11-29] MEDS ORDERED: FERR1TAB8 PO (16:50)
[2022-11-29] MEDS ORDERED: DEBR6.5S4 AU (16:50)
[2022-11-29] MEDS ORDERED: SENN-52 PO (16:50)
[2022-11-29] MEDS ORDERED: PRAM0.123 PO (16:50)
[2022-11-29] MEDS ORDERED: GUAI100L6 PO (16:50)
[2022-11-29] MEDS ORDERED: DESI13CR2 TOP (16:50)
[2022-11-29] MEDS ORDERED: SALI0.6530 NARES (16:50)
[2022-11-29] MEDS ORDERED: ACET1TAB55 PO (16:50)
[2022-11-29] MEDS ORDERED: FLUT50SP17 NARES (16:50)
[2022-11-29] MEDS ORDERED: B-12100T2 PO (16:50)
[2022-11-29] MEDS ORDERED: TRIPOIN9 TOP (16:50)
[2022-11-29] MEDS ORDERED: TRIA1CR80 TOP (16:50)
[2022-11-29] MEDS ORDERED: D-20TAB PO (16:50)
[2022-11-29] MEDS ORDERED: DICL100G10 TOP (16:50)
[2022-11-29] MEDS ORDERED: ENSULIQ8 PO (16:50)
[2022-11-29] MEDS ORDERED: HOME MED LIST COMPLETE! XX SCH (16:55)
[2022-11-29] MEDS ORDERED: ACETAMINOPHEN TAB 650MG DOSE (2X325MG) PO PRN (17:00)
[2022-11-29] MEDS ORDERED: MAALOX 30 ML SUSP *UDC PO PRN (17:00)
[2022-11-29] MEDS ORDERED: MOM 30ML SUSPENSION UDC PO PRN (17:00)
[2022-11-29] MEDS ORDERED: NS 1,000 ML IV SCH (17:05)
[2022-11-29] MEDS ORDERED: SODIUM CHLORIDE NASAL 0.65% SPRAY BTL (OCEAN) PRN (17:35)
[2022-11-29 18:06] LABS: BLOOD UREA NITROGEN 18 MG/DL (9-23); CALCIUM LEVEL 8.7 MG/DL (8.3-10.6); CARBON DIOXIDE LEVEL 28 MMOL/L (20-31); CHLORIDE LEVEL 108 MMOL/L (98-107); CREATININE FOR GFR 0.61 MG/DL (0.70-1.30); GLOMERULAR FILTRATION RATE > 60.0 (>42); GLUCOSE, FASTING 88 MG/DL (74-106); POTASSIUM SERUM 4.2 MMOL/L (3.5-5.1); SODIUM LEVEL 143 MMOL/L (136-145)
[2022-11-29] MEDS: oxyBUTYnin *DITROPAN XL* 5 MG TABCR PO SCH (18:12)
[2022-11-29] MEDS: TAMSULOSIN 0.4 MG CAP PO SCH (18:13)
[2022-11-29] MEDS: SIMVASTATIN 10 MG TAB PO SCH (18:13)
[2022-11-29 18:53] VITALS: BP 101/64; TEMP 97.9; O2SAT 94
[2022-11-29 20:00] VITALS: BP 101/64; TEMP 98.1; O2SAT 86
[2022-11-29] MEDS ORDERED: PRAMIPEXOLE (MIRAPEX) 0.125 MG TAB PO SCH (21:00)
[2022-11-29] MEDS: HEPARIN SOD (PORCINE) 5000UNITS/ML 1ML VIAL/SYRINGE SC SCH (21:38)
[2022-11-29] MEDS: SENOKOT S TAB PO SCH (21:38)
[2022-11-29] MEDS: busPIRone 10 MG TAB PO SCH (21:38)
[2022-11-30 05:12] VITALS: BP 126/75; TEMP 98.8; O2SAT 94
[2022-11-30] MEDS: HEPARIN SOD (PORCINE) 5000UNITS/ML 1ML VIAL/SYRINGE SC SCH (06:11)
[2022-11-30 07:46] LABS: BASO # 0.1 10^3/uL (0.0-0.2); BASO % 0.4 % (0.0-1.0); EOS # 0.1 10^3/uL (0.0-0.5); EOS % 0.8 % (0.0-3.0); HEMATOCRIT 37.7 % (42.0-52.0); LYMPH # 1.1 10^3/uL (1.5-5.0); MEAN CORPUSCULAR HEMOGLOBIN 29.1 pg (27.0-33.0); MEAN CORPUSCULAR HGB CONC 33.2 g/dl (32.0-36.5); MEAN CORPUSCULAR VOLUME 87.7 fl (80.0-96.0); MONO # 1.1 10^3/uL (0.0-0.8); MONO % 9.2 % (2.0-8.0); NEUTROPHILS # 9.6 10^3/uL (1.5-8.5); NEUTROPHILS % 80.3 % (36.0-66.0); PLATELET COUNT, AUTOMATED 244 10^3/uL (150-450)
[2022-11-30 08:30] LABS: HEMOGLOBIN 12.5 g/dl (13.5-17.5)
[2022-11-30] MEDS: TAMSULOSIN 0.4 MG CAP PO SCH (08:52)
[2022-11-30] MEDS: SIMVASTATIN 10 MG TAB PO SCH (08:52)
[2022-11-30] MEDS: busPIRone 10 MG TAB PO SCH (08:52)
[2022-11-30] MEDS: oxyBUTYnin *DITROPAN XL* 5 MG TABCR PO SCH (08:52)
[2022-11-30] MEDS: SENOKOT S TAB PO SCH (08:53)
[2022-11-30] MEDS ORDERED: FERROUS SULFATE 325MG TAB PO SCH (09:00)
[2022-11-30] MEDS ORDERED: FLUTICASONE PROP 0.05% NASAL SPRAY 16 GM (FLONASE) NARES SCH (09:00)
[2022-11-30] MEDS ORDERED: FINASTERIDE 5MG TAB PO SCH (09:00)
[2022-11-30] MEDS ORDERED: PANTOPRAZOLE 40MG TAB (PROTONIX) PO SCH (09:00)
[2022-11-30] MEDS ORDERED: SERTRALINE 100 MG TAB PO SCH (09:00)
== END 2022-11-30 12:50 | disposition home or self-care (01) ==
LOC: M ED 13:19 → M ED INP 13:20 → M MS5PR 18:35
PROVIDERS: ADMIT Student in an Organized Health Care Education/Training Program; ATTEND Student in an Organized Health Care Education/Training Program
DX: K31.1 Adult hypertrophic pyloric stenosis (principal); K42.0 Umbilical hernia with obstruction, without gangrene; D72.829 Elevated white blood cell count, unspecified; Z91.81 History of falling; R54 Age-related physical debility; G47.33 Obstructive sleep apnea (adult) (pediatric); N40.0 Benign prostatic hyperplasia without lower urinary tract symptoms; F41.9 Anxiety disorder, unspecified; F32.A Depression, unspecified; G80.9 Cerebral palsy, unspecified; Z99.89 Dependence on other enabling machines and devices; Z79.899 Other long term (current) drug therapy
CPT/HCPCS: 36415; 71045; 74177; 80047; 80048; 80076; 83690; 83735; 84439; 84443; 85025; 87631; 93005; 93041; 94760; 96372; 96374; 97161; 97530; 99285; G0378; J2405; Q9967

== ENCOUNTER 2022-12-01 14:48 | Emergency (ER) | payer MEDICARE, MEDICAID ==
[~2022-12-01] VITALS: Ht 177.8 cm; Wt 62.2 kg
[~2022-12-01 14:48] MED LIST changes: +ALUM320S3 PO; +B-12100T2 PO; +D-20TAB PO; +DEBR6.5S4 AU; +DESI13CR2 TOP; +DICL100G10 TOP; +ENSULIQ8 PO; +FERR1TAB8 PO; +FLUT50SP17 NARES; +GUAI100L6 PO; +PANT40TA29 PO; +PRAM0.123 PO; +SALI0.6530 NARES; +SENN-52 PO; +TRIA1CR80 TOP; +TRIPOIN9 TOP
[2022-12-01 19:12] VITALS: BP 108/57; TEMP 98.7; O2SAT 95
== END 2022-12-01 19:14 | disposition home or self-care (01) ==
LOC: M ED 14:48
DX: K42.9 Umbilical hernia without obstruction or gangrene (principal); Z79.899 Other long term (current) drug therapy

== ENCOUNTER → 2022-12-03 | Outpatient (CLI) | payer MEDICARE, MEDICAID | LOC: M PLAIMG 10:28 | PROVIDERS: ATTEND Family Medicine | DX: R27.0 Ataxia, unspecified (principal); S22.078D Other fracture of T9-T10 vertebra, subsequent encounter for fracture with routine healing; Y93.9 Activity, unspecified; Y92.9 Unspecified place or not applicable ==